=== PATIENT | female | born 1980 | race Caucasian/White ===

== ENCOUNTER 2017-05-26 23:45 | Inpatient (IN) | payer OTHER ==
[~2017-05-26] VITALS: Ht 170.2 cm; Wt 220.0 kg
[~2017-05-26 23:45] MED LIST: BENADRYL25 MG PO; Benadryl 50 mg50 MG PO; CEPH500 PO; CLIN150 PO; CLIN300 PO; Cleocin HCl300 MG PO; DOXY100 PO; DOXY100T53 PO; FAMO40 PO; HYDACE5; HYDACE5 PO; IBUP200; IBUP800; IBUP800 PO; LINE600 PO; MEDR10 PO; NAPR500; NAPR500 PO; Pepcid20 MG PO; RIFA300 PO; RXCLIN PO; RXNAPNA550 PO; RXTRAM50 PO; SULTRIDS PO; TRAM50 PO
[2017-05-27] MEDS ORDERED: GLIP5 PO (00:03)
[2017-05-27 00:22] LABS: BASOPHILS ABSOLUTE AUTO 0.04 K/mm3 (0.00-0.23); BASOPHILS PERCENT AUTO 0 % (0-2); EOSINOPHILS ABSOLUTE AUTO 0.03 K/mm3 (0.00-0.68); EOSINOPHILS PERCENT AUTO 0 % (0-6); Hematocrit 47.3 % (33.0-51.0); Hemoglobin 15.7 g/dL (11.5-16.0); IMMATURE GRAN ABSOLUTE AUTO 0.18 K/mm3 (0.00-0.10); IMMATURE GRAN PERCENT AUTO 2 % (0-1); LYMPHOCYTES ABSOLUTE AUTO 0.86 K/mm3 (0.84-5.20); LYMPHOCYTES PERCENT AUTO 7 % (21-46); MONOCYTES ABSOLUTE AUTO 0.47 K/mm3 (0.16-1.47); MONOCYTES PERCENT AUTO 4 % (4-13); Mean Corpuscular HGB 27.9 pg (26.0-34.0); Mean Corpuscular HGB Conc 33.2 g/dL (31.5-36.5); Mean Corpuscular Volume 84 fL (80-100); Mean Platelet Volume 12.3 fL (9.1-12.4); NEUTROPHILS ABSOLUTE AUTO 10.37 K/mm3 (1.96-9.15); NEUTROPHILS PERCENT AUTO 87 % (41-73); Platelet Count 196 K/mm3 (150-400); RDW Coefficient Variation 13.2 % (11.7-14.2); RDW Standard Deviation 40.4 fL (35.1-46.3); Red Blood Cell Count 5.62 M/mm3 (3.80-5.20); White Blood Cell Count 11.95 K/mm3 (4.00-11.30)
[2017-05-27 00:38] LABS: Alanine Aminotransfer (ALT/SGP 64 U/L (12-78); Albumin, Blood 3.5 g/dL (3.4-5.0); Alk Phos 114 U/L (50-136); Anion Gap 14 mmol/L (6-16); Aspartate Aminotrans (AST/SGOT 71 U/L (12-37); Bilirubin, Total 0.9 mg/dL (0.1-1.0); Blood Urea Nitrogen 15 mg/dL (8-24); Bun/Creatinine Ratio 14.6 (12.0-20.0); CO2, Blood 16 mmol/L (21-32); Calcium, Blood 8.9 mg/dL (8.5-10.1); Chloride, Blood 104 mmol/L (98-108); Creatinine, Blood 1.03 mg/dL (0.40-1.00); Globulin, Blood 3.6 g/dL (2.2-4.0); Glomerular Filtration Rate >60 (60-); Glucose, Blood 420 mg/dL (70-99); Potassium, Blood 3.2 mmol/L (3.5-5.5); Sodium, Blood 134 mmol/L (136-145); Total Protein, Blood 7.1 g/dL (6.4-8.2)
[2017-05-27] MEDS ORDERED: Bactrim 400-801 EACH PO (02:16)
[2017-05-27 03:33] LABS: BASOPHILS ABSOLUTE AUTO 0.04 K/mm3 (0.00-0.23); BASOPHILS PERCENT AUTO 0 % (0-2); Hematocrit 41.5 % (33.0-51.0); Hemoglobin 13.6 g/dL (11.5-16.0); LYMPHOCYTES ABSOLUTE AUTO 0.51 K/mm3 (0.84-5.20); LYMPHOCYTES PERCENT AUTO 4 % (21-46); MONOCYTES ABSOLUTE AUTO 0.44 K/mm3 (0.16-1.47); MONOCYTES PERCENT AUTO 3 % (4-13); Mean Corpuscular HGB 27.5 pg (26.0-34.0); Mean Corpuscular HGB Conc 32.8 g/dL (31.5-36.5); Mean Corpuscular Volume 84 fL (80-100); Mean Platelet Volume 12.3 fL (9.1-12.4); Platelet Count 163 K/mm3 (150-400); RDW Coefficient Variation 13.2 % (11.7-14.2); RDW Standard Deviation 40.5 fL (35.1-46.3); Red Blood Cell Count 4.94 M/mm3 (3.80-5.20); White Blood Cell Count 14.23 K/mm3 (4.00-11.30)
[2017-05-27 03:37] LABS: EOSINOPHILS ABSOLUTE AUTO 0.01 K/mm3 (0.00-0.68); EOSINOPHILS PERCENT AUTO 0 % (0-6); IMMATURE GRAN ABSOLUTE AUTO 0.15 K/mm3 (0.00-0.10); IMMATURE GRAN PERCENT AUTO 1 % (0-1); NEUTROPHILS ABSOLUTE AUTO 13.08 K/mm3 (1.96-9.15); NEUTROPHILS PERCENT AUTO 92 % (41-73)
[2017-05-27 03:52] LABS: Albumin/Globulin Ratio 0.9 (0.8-1.8); Bun/Creatinine Ratio 14.3 (12.0-20.0); Calcium, Blood 8.4 mg/dL (8.5-10.1); Creatinine, Blood 1.19 mg/dL (0.40-1.00); Globulin, Blood 3.2 g/dL (2.2-4.0); Potassium, Blood 3.9 mmol/L (3.5-5.5); Total Protein, Blood 6.2 g/dL (6.4-8.2)
[2017-05-27 07:33] LABS: Glucose, Blood 503 mg/dL (70-99)
[2017-05-27 23:46] LABS: Vancomycin, Trough 18.7 ug/mL (5.0-10.0)
[2017-05-28 05:01] LABS: Hematocrit 39.4 % (33.0-51.0); Mean Corpuscular HGB 27.4 pg (26.0-34.0); Mean Corpuscular Volume 83 fL (80-100); Mean Platelet Volume 12.9 fL (9.1-12.4); Platelet Count 139 K/mm3 (150-400); RDW Coefficient Variation 13.4 % (11.7-14.2); RDW Standard Deviation 40.7 fL (35.1-46.3); Red Blood Cell Count 4.74 M/mm3 (3.80-5.20)
[2017-05-28 05:25] LABS: Alanine Aminotransfer (ALT/SGP 40 U/L (12-78); Albumin, Blood 2.7 g/dL (3.4-5.0); Albumin/Globulin Ratio 0.7 (0.8-1.8); Alk Phos 94 U/L (50-136); Anion Gap 9 mmol/L (6-16); Aspartate Aminotrans (AST/SGOT 21 U/L (12-37); Blood Urea Nitrogen 19 mg/dL (8-24); Bun/Creatinine Ratio 23.6 (12.0-20.0); CO2, Blood 22 mmol/L (21-32); Calcium, Blood 8.5 mg/dL (8.5-10.1); Chloride, Blood 104 mmol/L (98-108); Glomerular Filtration Rate >60 (60-); Glucose, Blood 230 mg/dL (70-99); Potassium, Blood 3.7 mmol/L (3.5-5.5); Sodium, Blood 135 mmol/L (136-145); Total Protein, Blood 6.7 g/dL (6.4-8.2)
[2017-05-28 05:34] LABS: BAND PERCENT MAN 19 % (0-8); BASOPHILS ABSOLUTE MAN 0.13 K/mm3 (0.00-0.23); BASOPHILS PERCENT MAN 1 % (0-2); EOSINOPHILS PERCENT MAN 3 % (0-6); LYMPHOCYTES ABSOLUTE MAN 1.07 K/mm3 (0.84-5.20); LYMPHOCYTES PERCENT MAN 8 % (21-46); METAMYELOCYTE ABSOLUTE MAN 0.13 K/mm3 (0.00-0.00); METAMYELOCYTE PERCENT MAN 1 % (0-0); MONOCYTES ABSOLUTE MAN 0.53 K/mm3 (0.16-1.47); MONOCYTES PERCENT MAN 4 % (4-13); NEUTROPHILS ABSOLUTE MAN 11.12 K/mm3 (1.96-9.15); SEG NEUTROPHILS PERCENT MAN 64 % (41-73); TOTAL CELLS COUNTED 100
[2017-05-29 05:26] LABS: Hematocrit 36.5 % (33.0-51.0); Hemoglobin 11.9 g/dL (11.5-16.0); Mean Corpuscular HGB 27.5 pg (26.0-34.0); Mean Corpuscular HGB Conc 32.6 g/dL (31.5-36.5); Mean Corpuscular Volume 84 fL (80-100); Mean Platelet Volume 12.4 fL (9.1-12.4); Platelet Count 145 K/mm3 (150-400); RDW Coefficient Variation 13.6 % (11.7-14.2); RDW Standard Deviation 42.1 fL (35.1-46.3); Red Blood Cell Count 4.33 M/mm3 (3.80-5.20); White Blood Cell Count 9.86 K/mm3 (4.00-11.30)
[2017-05-29 05:50] LABS: Anion Gap 9 mmol/L (6-16); Blood Urea Nitrogen 15 mg/dL (8-24); Bun/Creatinine Ratio 24.3 (12.0-20.0); CO2, Blood 23 mmol/L (21-32); Calcium, Blood 8.9 mg/dL (8.5-10.1); Chloride, Blood 105 mmol/L (98-108); Creatinine, Blood 0.62 mg/dL (0.40-1.00); Glomerular Filtration Rate >60 (60-); Glucose, Blood 236 mg/dL (70-99); Potassium, Blood 3.7 mmol/L (3.5-5.5); Sodium, Blood 137 mmol/L (136-145)
[2017-05-29 06:05] LABS: BAND PERCENT MAN 14 % (0-8); BASOPHILS ABSOLUTE MAN 0.09 K/mm3 (0.00-0.23); BASOPHILS PERCENT MAN 1 % (0-2); EOSINOPHILS ABSOLUTE MAN 0.09 K/mm3 (0.00-0.68); EOSINOPHILS PERCENT MAN 1 % (0-6); LYMPHOCYTES ABSOLUTE MAN 0.69 K/mm3 (0.84-5.20); LYMPHOCYTES PERCENT MAN 7 % (21-46); MONOCYTES ABSOLUTE MAN 0.39 K/mm3 (0.16-1.47); MONOCYTES PERCENT MAN 4 % (4-13); NEUTROPHILS ABSOLUTE MAN 8.57 K/mm3 (1.96-9.15); SEG NEUTROPHILS PERCENT MAN 73 % (41-73); TOTAL CELLS COUNTED 100
[2017-05-29] MEDS ORDERED: FAMO10 PO (11:23)
[2017-05-29 16:26] LABS: Vancomycin, Trough 23.3 ug/mL (5.0-10.0)
[2017-05-30] MEDS ORDERED: METF850 PO (10:53)
[2017-05-30] MEDS ORDERED: GABA100 PO (10:53)
[2017-05-30] MEDS ORDERED: Prinivil10 MG PO (10:54)
== END 2017-05-30 12:07 | disposition home or self-care (01) | DRG 872 ==
LOC: ER 23:45 → ICUW 05-27 02:09 → PCU 05-27 02:09 → ICUW 05-27 02:12 → MEDS 05-28 11:50 → ENPENDDIS 05-30 08:30 → MEDS 05-30 12:07
PROVIDERS: Emergency Medicine; Family Medicine; Internal Medicine
DX: A41.9 Sepsis, unspecified organism (principal); N17.9 Acute kidney failure, unspecified; E11.65 Type 2 diabetes mellitus with hyperglycemia; E66.01 Morbid (severe) obesity due to excess calories; Z68.45 Body mass index [BMI] 70 or greater, adult; R65.20 Severe sepsis without septic shock; M79.3 Panniculitis, unspecified; I10 Essential (primary) hypertension; E86.0 Dehydration; B95.5 Unspecified streptococcus as the cause of diseases classified elsewhere; Z88.1 Allergy status to other antibiotic agents; Z88.5 Allergy status to narcotic agent; Z88.0 Allergy status to penicillin; Z88.2 Allergy status to sulfonamides; Z88.8 Allergy status to other drugs, medicaments and biological substances; Z79.84 Long term (current) use of oral hypoglycemic drugs; Z79.899 Other long term (current) drug therapy
CPT/HCPCS: 36415; 80048; 80053; 80202; 82010; 82947; 83036; 83605; 85025; 87040; 93005; 93010; 96361; 96365; 96366; 99285; J1815; J2185; J3370; J3480; J7030; J7050

== ENCOUNTER 2018-09-23 21:42 | Inpatient (IN) | payer OTHER ==
[~2018-09-23] VITALS: Ht 170.2 cm; Wt 264.0 kg
[~2018-09-23 21:42] MED LIST changes: +ALLEGRA ALLERG180 MG PO; +Bactrim 400-801 EACH PO; +Bactrim Ds Tab1 EACH PO; +FAMO10 PO; +Florastor250 MG PO; +GABA100 PO; +GLIP10 PO; +LOSARTAN POTASS50 MG PO; +Metformin HCl1000 MG PO; +PIOG30 PO; +Prinivil10 MG PO; +TRIDERM28.4 GM TOP
[2018-09-23] MEDS ORDERED: PIOG45 PO (22:26)
[2018-09-23] MEDS ORDERED: MONDOXYNE NL100 MG PO (22:26)
[2018-09-23] MEDS ORDERED: Neurontin 100100 MG PO (22:26)
[2018-09-23] MEDS ORDERED: Sulfamethoxazo1 EAC4 PO (22:26)
[2018-09-23 22:46] LABS: BASOPHILS ABSOLUTE AUTO 0.03 K/mm3 (0.00-0.23); BASOPHILS PERCENT AUTO 0 % (0-2); EOSINOPHILS ABSOLUTE AUTO 0.07 K/mm3 (0.00-0.68); EOSINOPHILS PERCENT AUTO 1 % (0-6); Hematocrit 40.4 % (33.0-51.0); Hemoglobin 12.3 g/dL (11.5-16.0); IMMATURE GRAN ABSOLUTE AUTO 0.11 K/mm3 (0.00-0.10); IMMATURE GRAN PERCENT AUTO 1 % (0-1); LYMPHOCYTES ABSOLUTE AUTO 0.71 K/mm3 (0.84-5.20); LYMPHOCYTES PERCENT AUTO 6 % (21-46); MONOCYTES ABSOLUTE AUTO 0.36 K/mm3 (0.16-1.47); MONOCYTES PERCENT AUTO 3 % (4-13); Mean Corpuscular HGB 27.5 pg (26.0-34.0); Mean Corpuscular HGB Conc 30.4 g/dL (31.5-36.5); Mean Corpuscular Volume 90 fL (80-100); Mean Platelet Volume 11.9 fL (9.1-12.4); NEUTROPHILS ABSOLUTE AUTO 11.39 K/mm3 (1.96-9.15); NEUTROPHILS PERCENT AUTO 90 % (41-73); Platelet Count 165 K/mm3 (150-400); RDW Coefficient Variation 15.2 % (11.7-14.2); RDW Standard Deviation 50.4 fL (35.1-46.3); Red Blood Cell Count 4.48 M/mm3 (3.80-5.20); White Blood Cell Count 12.67 K/mm3 (4.00-11.30)
[2018-09-23 23:04] LABS: Alanine Aminotransfer (ALT/SGP 30 U/L (12-78); Albumin, Blood 3.6 g/dL (3.4-5.0); Alk Phos 99 U/L (50-136); Anion Gap 6 mmol/L (6-16); Aspartate Aminotrans (AST/SGOT 15 U/L (12-37); Bilirubin, Total 0.7 mg/dL (0.1-1.0); Blood Urea Nitrogen 13 mg/dL (8-24); CO2, Blood 25 mmol/L (21-32); Chloride, Blood 106 mmol/L (98-108); Creatinine, Blood 0.87 mg/dL (0.40-1.00); Globulin, Blood 3.7 g/dL (2.2-4.0); Glomerular Filtration Rate >60 (60-); Glucose, Blood 212 mg/dL (70-99); Potassium, Blood 4.4 mmol/L (3.5-5.5); Sodium, Blood 137 mmol/L (136-145); Total Protein, Blood 7.3 g/dL (6.4-8.2)
[2018-09-23 23:10] LABS: International Normalized Ratio 0.97; Prothrombin Time Results 10.3 Sec (9.7-11.5)
--- NOTE | 2018-09-24 01:36 | NUR ---
09/24/18 0135 PT HAS LARGE BACKPACK AND WHEN ASKED IF SHE HAS MEDS INSIDE SHE RESPONDED,"I DON'T KNOW." MD REFUSED TO GET WEIGHED ON SCALE. WEIGHT IS A STATED WT. PT REFUSED LOVENOX INJECTION EVEN WHEN INFORMED OF REASONS FOR IT. SHE STATES SHE MOVES "AROUND PLENTY". DR ADAMS INFORMED OF HER REFUSALS.
[2018-09-24 02:14] LABS: BASOPHILS ABSOLUTE AUTO 0.03 K/mm3 (0.00-0.23); BASOPHILS PERCENT AUTO 0 % (0-2); EOSINOPHILS ABSOLUTE AUTO 0.04 K/mm3 (0.00-0.68); EOSINOPHILS PERCENT AUTO 0 % (0-6); Hematocrit 41.3 % (33.0-51.0); Hemoglobin 12.6 g/dL (11.5-16.0); IMMATURE GRAN ABSOLUTE AUTO 0.05 K/mm3 (0.00-0.10); IMMATURE GRAN PERCENT AUTO 1 % (0-1); LYMPHOCYTES PERCENT AUTO 7 % (21-46); MONOCYTES ABSOLUTE AUTO 0.27 K/mm3 (0.16-1.47); MONOCYTES PERCENT AUTO 3 % (4-13); Mean Corpuscular HGB 27.7 pg (26.0-34.0); Mean Corpuscular HGB Conc 30.5 g/dL (31.5-36.5); Mean Corpuscular Volume 91 fL (80-100); Mean Platelet Volume 11.7 fL (9.1-12.4); NEUTROPHILS PERCENT AUTO 89 % (41-73); Platelet Count 168 K/mm3 (150-400); RDW Coefficient Variation 15.3 % (11.7-14.2); RDW Standard Deviation 50.3 fL (35.1-46.3); Red Blood Cell Count 4.55 M/mm3 (3.80-5.20); White Blood Cell Count 10.99 K/mm3 (4.00-11.30)
--- NOTE | 2018-09-24 02:27 | NUR ---
09/24/18 4570 PAGED PALLIATIVE CARE ABOUT CONSULT VIA [employer].
--- NOTE | 2018-09-24 04:21 | NUR ---
09/24/18 0415 PT CALLED THAT IV SITE IS SWOLLEN AND SLIGHTLY PAINFUL. IV FLUIDS WERE STOPPED BY PT. RN REMOVED TUBING AND NOTIFIED INSTRUCTIONAL INTERVENTIONIST,TAMERA PT IS VERY POOR VENOUS ACCESS.
--- NOTE | 2018-09-24 07:45 | NUR ---
09/24/18 0610 PT DOZING SITTING UP ON SIDE OF BED. PT REFUSED TO LAY IN BED IT WAS NOT COMFORTABLE. PT NON-COMPLIANT WITH PLAN OF CARE AND HAS REFUSED SOME TESTS AND MEDS. QUESTIONS EVERY MED GIVEN. STATES SHE MAY NOT TAKE ENTIRE IV FLUIDS MD HAS ORDERED SHE FEELS IT IS TOO MUCH. INFORMED HER TO SPEAK WITH MD WHEN HE COMES TO SEE HER DURING ROUNDS.
--- NOTE | 2018-09-24 08:15 | NUR ---
PT PLEASANT COOP A/O. OBESE. DENIES PAIN. H/R REG, NO MURMER NOTED. NO TELE. LUNGS CLEAR, BUT DIM. ON R.A. BT X4 LAST BM YEST. STATES NORMAL. VOIDS PER BATHROOM. INDEPENDANT IN ROOM. BED IN LOW POSITION, CALL LITE IN REACH, CALLS APPROP.
--- NOTE | 2018-09-24 11:41 | NUR ---
PT REFUSING CBG'S, AND IV FLUIDS. SPOKE TO DR ZAPATA. SHE REQUEST WE DOCUMENT. DONE.
--- NOTE | 2018-09-24 18:36 | NUR ---
PT PLEASANT TODAY. BED BROKE. GERIATRIC BED ORDERED TOOK FEW HOURS. PT WANTED TO GO HOME THIS AM. NOT READY. POSS TOMORROW. NO OTHER CONCERNS AT THIS TIME. BED IN LOW POSITION, CALL LITE IN REACH, CALLS APROP
--- NOTE | 2018-09-24 23:51 | NUR ---
PATIENT REFUSING LAB DRAW FOR VANCOMYCIN TROUGH AFTER TWO ATTEMPTS WERE MADE TO DRAW LAB. SPOKE WITH PHYSICIAN ABOUT PATIENT REFUSING LAB DRAW AT THIS POINT AND IS AWARE. SPOKE WITH PATIENT ABOUT THE NEED FOR THE LAB DRAW IN ORDER TO GIVE THE NEXT DOSE OF VANCOMYCIN. EDUCATED PATIENT ON POSSIBLE COMPLICATIONS OF MISSING IV ANTIBIOTIC DOSE. PATIENT VERBALIZED UNDERSTANDING OF COMPLICATIONS INCLUDING SEPSIS AND POSSIBLE . PATIENT IV IN LEFT HAND NO LONGER VIABLE. WILL ATTEMPT TO PLACE NEW IV AND GET BLOOD DRAW FROM IV AT THIS TIME.
--- NOTE | 2018-09-25 01:44 | NUR ---
ATTEMPTED X3 TO GET A PERIPHERAL IV. CAR SALESPERSON ATTEMPTING TO OBTAIN IV USING ULTRASOUND AT THIS TIME. SPOKE TO PHARMACIST IN PERSON WHO STATED TO CANCEL THE VANC TROUGH LAB SINCE IT IS OVER 4 HOURS LATE AND HE WILL SEND A DOSE OF IV VANC IF AN IV IS ESTABLISHED. SPOKE TO MOVEMAN AND CANCELLED VANC TROUGH LAB.
--- NOTE | 2018-09-25 06:34 | NUR ---
SHIFT SUMMARY SEE PREVIOUS NOTE REGARDING PATIENT REFUSING LAB DRAW. PATIENT IV WAS NO LONGER PATENT. ATTEMPTED X3 TO START NEW IV BUT THEN HAD TO GET ARBORICULTURE TEACHER TO TRY ULTRASOUND TO GET PERIPHERAL LINE IN. WHEN I SPOKE TO THE PHARMACIST ABOUT MISSING VANC DOSE HE STATED TO GIVE VELÁSQUEZ ONCE PATIENT IV ACCESS ESTABLISHED. VANC GIVEN THROUGH RIGHT WRIST IV. PATIENT STATED MULTIPLE TIMES THROUGH OUT THE NIGHT THAT SHE WOULD BE LEAVING "AMA" AT 0700. ON MULTIPLE OCCASIONS THROUGHOUT THE NIGHT I WITNESSED THE PATIENT CRYING BUT PATIENT REFUSED TO TELL STAFF WHAT SHE WAS CRYING ABOUT OR IF ANYTHING WAS WRONG. PTT ORDERED AND NURSE ATTEMPTED TO DRAW LAB THROUGH IV BUT THEN RECEIVED CALL FROM LAB STATING THAT LAB DRAW HAD HEMOLYZED. PATIENT REFUSING REPEAT LAB DRAW AT THIS TIME. PATIENT REFUSING CBGS AND CONTINUOUS FLUIDS WELL. NO S/S OF DISTRESS ALTHOUGH PATIENT DOES APPEAR ANXIOUS AND TEARFUL AT TIMES
[2018-09-25 10:58] LABS: Creatinine, Blood 0.77 mg/dL (0.40-1.00)
--- NOTE | 2018-09-25 16:32 | NUR ---
PT IS A/OX3, PLEASANT, THIS AM THE PT STATED THAT SHE WAS GOING TO LEAVE AT 0700, I CALLED THE DOCTOR TO NOTIFY, I WAS ABLE TO PERSUADE THE PT TO STAY UNTIL SHE COULD BE SEEN BY THE DR. FOR POSSIBLE OTHER TX PLANS BEFORE LEAVING THE PT AGREED TO STAY, THE PT ALLOWED BLOOD DRAWS TO BE TAKEN SO FAR, THE PT DENIED ANY PAIN T/O THE DAY, THE PT HAS BEEN UP ON THE SIDE OF THE BED T/O THE SHIFT SO FAR. DR ZAPATA WAS CALLED CONCERNING THE PTS ELEVATED BLOOD PRESSURE AND NEW MED ORDERS WERE GIVEN, HOWEVER THE PT DECLINED TO TAKE THE MEDICATION, PT HAS BEEN EMOTIONAL T/O THE DAY, CALL LIGHT IN REACH WILL CONTINUE TO MONITOR AND ASSESS FOR CHANGES
--- NOTE | 2018-09-26 05:38 | NUR ---
SHIFT SUMMARY PATIENT PLEASANT TONIGHT WITH NO EPISODES OF CRYING OBSERVED BY NURSE. IV PATENT AND VANCOMYCIN GIVEN. NO S/S OF DISTRESS. VSS. AMBULATING IN ROOM TO BATHROOM BY SELF.
--- NOTE | 2018-09-26 16:57 | NUR ---
PT IS A/OX3, UP IND IN HER ROOM, THE PT APPEARS TO BE BREATHING EASILY ON RA, THE PT ABD REDNESS APPEARS TO HAVE IMPROVED COMPARED TO YESTERDAY, THE PT WAS GIVEN IV VANC AND REPORTED RIGHT ARM PAIN AFTERWARD THEN, NO SWELLING OR REDNESS WAS NOTICED, DR. HASTINGS WAS CALLED AND A NEW ORDER WAS ENTERED FOR PAIN AND GIVEN, THE PT WAS UP ON THE SIDE OF THE BED FOR MOST OF THE DAY, CALL LIGHT IN REACH, THE PT HAD A VISITOR TODAY
--- NOTE | 2018-09-27 06:18 | NUR ---
SHIFT SUMMARY PATIENT RECIEVED VANCOMYCIN VIA IV. PATIENT COMPLAINING THAT THERE WAS A "BULGE" WHERE IV WAS PLACED. I FELT WHERE THE PATIENT SHOWED ME BUT DID NOT FIND ANY SIGNS OF INFILTRATION. IV FLUSHED AND PATENT. PATIENT STATED THAT HER ARM WAS SWOLLEN BUT I WAS UNABLE TO SEE ANY SWELLING OF THE ARM. PATIENT STATED SHE WAS GOING TO REMOVE THE IV HERSELF. PATIENT GIVEN IBUPROFEN (SEE EMAR) REQUESTED. NO S/S OF ACUTE DISTRESS. PATIENT CONTINUES TO REFUSE MOST MEDICATIONS AND THERAPIES AT THIS TIME. PATIENT STATED THAT SHE DID NOT WANT THE PICC LINE THAT WAS BEING DISCUSSED FOR TODAY.
--- NOTE | 2018-09-27 07:30 | NUR ---
ASSUMED CARE OF PT- BEDSIDE REPORT COMPLETED WITH NIGHT RN KIAH. PER REPORT PT HAS REMOVED HER IV'S, SHE CURRENTLY HAS ONE THAT SHE TOLD THE NIGHT RN IS PAINFUL AND SHE IS GOING TO REMOVE ON HER OWN. PLAN IS TO PLACE A PICC LINE AND SEND PT HOME ON IV ABX. PT IS REFUSING LOVENOX, AND SOME LAB DRAWS. PER REPORT FROM NIGHT RN CELLULITIS HAS BEEN IMPROVING; PT STATES SHE IS VERY CONCERNED ABOUT THE PICC LINE AND DOES NOT WANT IT, WILL PROVIDE FURTHER EDUCATION SO PT CAN MAKE INFORMED DECISION IN REGUARDS TO HER CONTINUED TREATMENT.
--- NOTE | 2018-09-27 10:55 | NUR ---
SPOKE TO DR HASTINGS- PT STATED SHE IS OK WITH THE PLACEMENT OF THE PICC LINE. DR ENGLISH AND WILL DISCUSS WITH DISCHARGE PLANNING ABOUT THE INFUSION CLINNIC PLANS. WILL PLACE THE VERBAL ORDER FOR PICC LINE PLACEMENT.
--- NOTE | 2018-09-27 11:03 | NUR ---
PT WAS REMOVING HER IV, SHE STATED IT HURTS AND IS VISIBLY RED AT THIS TIME, APPEARS SLIGHTLY SWOLLEN WELL, TO PREVENT PT HARM STAFF REMOVED THE IV THE REMAINDER OF THE WAY AND WRAPPED WITH GAUZE AND COBAN.
[2018-09-27 14:21] LABS: Creatinine, Blood 0.87 mg/dL (0.40-1.00); Vancomycin, Trough 10.2 ug/mL (5.0-10.0)
[2018-09-27] MEDS ORDERED: VANCO 2 GR2 GM/500 M IV (16:31)
--- NOTE | 2018-09-27 17:48 | NUR ---
DISCHARGE NOTE- PT DISCHARGED HOME WITH BID INFUSIONS AT THE [facility] FOR THE NEXT THREE DAYS SCHEDULED TIMES ARE AT 0730 AND 1600 ACCORDING TO BETO JAMES TEAMS IN THE INF[facility]ION CENTER. PT C/O BODY ACHES, MEDICATED PRN WITH IBUPROFEN, PT STATED THAT TOOK THE EDGE OFF. PT WAS GIVEN VERBAL AND WRITTEN DISCHARGE INSTRUCTIONS AND ACKNOWLEDGED UNDERSTANDING OF THEM. PROVIDED CONTACT INFO SHOULD QUESTIONS ARRISE PRIOR TO 7PM. PT DRESSED INDEPENDENTLY AND IS SITTING AT THE EOB WAITING FOR HER MOTHER TO CALL AND TELL HER SHE IS HERE TO PICK HER UP. PT WILL BE ESCORTED OUT VIA W/C BY A STAFF MEMBER.
== END 2018-09-27 18:24 | disposition home or self-care (01) | DRG 872 ==
LOC: ER 21:42 → MEDS 23:45 → ENPENDDIS 09-27 13:35 → MEDS 09-27 18:24
PROVIDERS: Physician Assistant; ADMIT Hospitalist
DX: A41.9 Sepsis, unspecified organism (principal); Z68.44 Body mass index [BMI] 60.0-69.9, adult; L03.311 Cellulitis of abdominal wall; R65.20 Severe sepsis without septic shock; E66.01 Morbid (severe) obesity due to excess calories; E11.9 Type 2 diabetes mellitus without complications; N93.8 Other specified abnormal uterine and vaginal bleeding; I10 Essential (primary) hypertension; L40.9 Psoriasis, unspecified; Z88.1 Allergy status to other antibiotic agents; Z88.5 Allergy status to narcotic agent; Z88.0 Allergy status to penicillin; Z88.2 Allergy status to sulfonamides; Z88.8 Allergy status to other drugs, medicaments and biological substances; Z79.84 Long term (current) use of oral hypoglycemic drugs; Z79.1 Long term (current) use of non-steroidal anti-inflammatories (NSAID); Z79.899 Other long term (current) drug therapy
CPT/HCPCS: 36415; 80053; 80202; 82565; 83605; 85025; 85610; 85730; 87040; 96365; 99284-25; C1751; J3370; J7030; J7050

== ENCOUNTER 2018-09-28 00:41 | Day surgery (SDC) | payer OTHER ==
[~2018-09-28 00:41] MED LIST changes: +MONDOXYNE NL100 MG PO; +Neurontin 100100 MG PO; +PIOG45 PO; +Sulfamethoxazo1 EAC4 PO; +VANCO 2 GR2 GM/500 M IV
== END 2018-09-28 18:05 | disposition home or self-care (01) ==
LOC: ATC 00:41
DX: A41.9 Sepsis, unspecified organism (principal); R65.20 Severe sepsis without septic shock; L03.90 Cellulitis, unspecified; E78.5 Hyperlipidemia, unspecified; I10 Essential (primary) hypertension; J44.9 Chronic obstructive pulmonary disease, unspecified; E66.01 Morbid (severe) obesity due to excess calories; E11.65 Type 2 diabetes mellitus with hyperglycemia; Z79.899 Other long term (current) drug therapy; Z79.84 Long term (current) use of oral hypoglycemic drugs; Z79.1 Long term (current) use of non-steroidal anti-inflammatories (NSAID)
CPT/HCPCS: 96365; 96366; J3370; J7050

== ENCOUNTER 2018-09-29 00:02 | Day surgery (SDC) | payer OTHER | END 2018-09-29 17:53 | disposition home or self-care (01) | LOC: ATC 00:02 | DX: A41.9 Sepsis, unspecified organism (principal); R65.20 Severe sepsis without septic shock; L03.90 Cellulitis, unspecified; I10 Essential (primary) hypertension; E11.9 Type 2 diabetes mellitus without complications; J44.9 Chronic obstructive pulmonary disease, unspecified; E78.5 Hyperlipidemia, unspecified; E66.01 Morbid (severe) obesity due to excess calories; Z79.899 Other long term (current) drug therapy; Z79.84 Long term (current) use of oral hypoglycemic drugs | CPT/HCPCS: 96365; 96366; J3370; J7050 ==

== ENCOUNTER 2018-09-30 00:14 | Day surgery (SDC) | payer OTHER ==
[2018-10-01] MEDS ORDERED: MELO7.5 PO (16:10)
== END 2018-09-30 17:56 | disposition home or self-care (01) ==
LOC: ATC 00:14
DX: L03.311 Cellulitis of abdominal wall (principal); E66.01 Morbid (severe) obesity due to excess calories; I10 Essential (primary) hypertension; J44.9 Chronic obstructive pulmonary disease, unspecified; E78.5 Hyperlipidemia, unspecified; E11.65 Type 2 diabetes mellitus with hyperglycemia; L40.9 Psoriasis, unspecified
CPT/HCPCS: 96365; 96366; J3370; J7050

== ENCOUNTER 2018-10-01 11:42 | Day surgery (SDC) | payer OTHER ==
[2018-10-01] MEDS ORDERED: MELO7.5 PO (16:10)
== END 2018-10-01 23:49 | disposition home or self-care (01) ==
LOC: ATC 11:42
DX: L03.311 Cellulitis of abdominal wall (principal); E11.9 Type 2 diabetes mellitus without complications; E66.01 Morbid (severe) obesity due to excess calories; L40.9 Psoriasis, unspecified; N93.8 Other specified abnormal uterine and vaginal bleeding; Z79.899 Other long term (current) drug therapy; Z79.84 Long term (current) use of oral hypoglycemic drugs; Z88.1 Allergy status to other antibiotic agents; Z88.5 Allergy status to narcotic agent; Z88.0 Allergy status to penicillin; Z88.8 Allergy status to other drugs, medicaments and biological substances; Z68.45 Body mass index [BMI] 70 or greater, adult
CPT/HCPCS: 96365; 96366; J3370; J7050

== ENCOUNTER 2018-10-02 07:27 | Day surgery (SDC) | payer OTHER ==
[~2018-10-02 07:27] MED LIST changes: +MELO7.5 PO
[2018-10-02 09:17] LABS: Creatinine, Blood 0.78 mg/dL (0.40-1.00); Vancomycin, Trough 7.3 ug/mL (5.0-10.0)
== END 2018-10-02 18:40 | disposition home or self-care (01) ==
LOC: ATC 07:27
PROVIDERS: Nurse Practitioner Family
DX: A41.9 Sepsis, unspecified organism (principal); R65.20 Severe sepsis without septic shock; L03.311 Cellulitis of abdominal wall; N93.8 Other specified abnormal uterine and vaginal bleeding; E11.9 Type 2 diabetes mellitus without complications; E66.01 Morbid (severe) obesity due to excess calories; Z68.45 Body mass index [BMI] 70 or greater, adult; Z91.048 Other nonmedicinal substance allergy status; Z88.1 Allergy status to other antibiotic agents; Z91.041 Radiographic dye allergy status; Z88.5 Allergy status to narcotic agent; Z88.0 Allergy status to penicillin; Z88.8 Allergy status to other drugs, medicaments and biological substances; Z79.899 Other long term (current) drug therapy; Z79.84 Long term (current) use of oral hypoglycemic drugs
CPT/HCPCS: 36415; 80202; 82565; 96365; 96366

== ENCOUNTER 2018-10-03 07:27 | Day surgery (SDC) | payer OTHER | END 2018-10-03 18:15 | disposition home or self-care (01) | LOC: ATC 07:27 | DX: L03.311 Cellulitis of abdominal wall (principal); E11.65 Type 2 diabetes mellitus with hyperglycemia; N93.8 Other specified abnormal uterine and vaginal bleeding; E66.01 Morbid (severe) obesity due to excess calories; Z68.45 Body mass index [BMI] 70 or greater, adult; Z91.19 Patient's noncompliance with other medical treatment and regimen | CPT/HCPCS: 96365; 96366; J3370; J7050 ==

== ENCOUNTER 2018-10-04 00:46 | Day surgery (SDC) | payer OTHER | END 2018-10-04 11:10 | disposition home or self-care (01) | LOC: ATC 00:46 | DX: A41.9 Sepsis, unspecified organism (principal); R65.20 Severe sepsis without septic shock; L03.311 Cellulitis of abdominal wall; N93.8 Other specified abnormal uterine and vaginal bleeding; E11.9 Type 2 diabetes mellitus without complications; E66.01 Morbid (severe) obesity due to excess calories; Z68.45 Body mass index [BMI] 70 or greater, adult; Z91.048 Other nonmedicinal substance allergy status; Z88.1 Allergy status to other antibiotic agents; Z91.041 Radiographic dye allergy status; Z88.5 Allergy status to narcotic agent; Z88.0 Allergy status to penicillin; Z88.8 Allergy status to other drugs, medicaments and biological substances; Z79.899 Other long term (current) drug therapy; Z79.84 Long term (current) use of oral hypoglycemic drugs | CPT/HCPCS: 96365; 96366; J3370; J7050 ==

== ENCOUNTER 2018-10-05 07:27 | Day surgery (SDC) | payer OTHER | END 2018-10-05 18:01 | disposition home or self-care (01) | LOC: ATC 07:27 | DX: A41.9 Sepsis, unspecified organism (principal); R65.20 Severe sepsis without septic shock; L03.311 Cellulitis of abdominal wall; E11.9 Type 2 diabetes mellitus without complications; E66.01 Morbid (severe) obesity due to excess calories; N93.8 Other specified abnormal uterine and vaginal bleeding; Z68.45 Body mass index [BMI] 70 or greater, adult; Z91.19 Patient's noncompliance with other medical treatment and regimen; Z88.1 Allergy status to other antibiotic agents; Z91.041 Radiographic dye allergy status; Z88.0 Allergy status to penicillin; Z88.8 Allergy status to other drugs, medicaments and biological substances; Z88.5 Allergy status to narcotic agent; Z79.84 Long term (current) use of oral hypoglycemic drugs; Z79.899 Other long term (current) drug therapy | CPT/HCPCS: 96365; 96366; J3370; J7050 ==

== ENCOUNTER 2018-10-06 00:05 | Day surgery (SDC) | payer OTHER | END 2018-10-06 18:38 | disposition home or self-care (01) | LOC: ATC 00:05 | DX: A41.9 Sepsis, unspecified organism (principal); R65.20 Severe sepsis without septic shock; L03.311 Cellulitis of abdominal wall; E11.9 Type 2 diabetes mellitus without complications; E66.01 Morbid (severe) obesity due to excess calories; Z91.048 Other nonmedicinal substance allergy status; Z88.1 Allergy status to other antibiotic agents; Z91.041 Radiographic dye allergy status; Z88.0 Allergy status to penicillin; Z88.5 Allergy status to narcotic agent; Z88.8 Allergy status to other drugs, medicaments and biological substances; Z79.899 Other long term (current) drug therapy; Z79.84 Long term (current) use of oral hypoglycemic drugs; Z68.45 Body mass index [BMI] 70 or greater, adult | CPT/HCPCS: 96365; 96366; J3370; J7050 ==

== ENCOUNTER 2018-10-07 00:03 | Day surgery (SDC) | payer OTHER | END 2018-10-07 17:21 | disposition home or self-care (01) | LOC: ATC 00:03 | DX: M79.3 Panniculitis, unspecified (principal); E66.01 Morbid (severe) obesity due to excess calories; E11.65 Type 2 diabetes mellitus with hyperglycemia; N93.8 Other specified abnormal uterine and vaginal bleeding; L40.9 Psoriasis, unspecified; Z68.45 Body mass index [BMI] 70 or greater, adult; Z91.19 Patient's noncompliance with other medical treatment and regimen; Z79.899 Other long term (current) drug therapy; Z79.84 Long term (current) use of oral hypoglycemic drugs; Z88.1 Allergy status to other antibiotic agents; Z88.5 Allergy status to narcotic agent; Z88.0 Allergy status to penicillin; Z88.8 Allergy status to other drugs, medicaments and biological substances | CPT/HCPCS: 96365; 96366; J3370; J7050 ==

== ENCOUNTER 2018-10-08 00:47 | Day surgery (SDC) | payer OTHER ==
[2018-10-08 09:45] LABS: Vancomycin, Trough 10.4 ug/mL (5.0-10.0)
[2018-10-08 10:03] LABS: Creatinine, Blood 0.84 mg/dL (0.40-1.00); Glomerular Filtration Rate >60 (60-)
== END 2018-10-08 23:41 | disposition home or self-care (01) ==
LOC: ATC 00:47
PROVIDERS: Nurse Practitioner Family
DX: L03.311 Cellulitis of abdominal wall (principal); A41.9 Sepsis, unspecified organism; R65.20 Severe sepsis without septic shock; E11.9 Type 2 diabetes mellitus without complications; N93.8 Other specified abnormal uterine and vaginal bleeding; E66.01 Morbid (severe) obesity due to excess calories; Z68.45 Body mass index [BMI] 70 or greater, adult; Z91.048 Other nonmedicinal substance allergy status; Z88.1 Allergy status to other antibiotic agents; Z91.041 Radiographic dye allergy status; Z88.5 Allergy status to narcotic agent; Z88.0 Allergy status to penicillin; Z88.8 Allergy status to other drugs, medicaments and biological substances; Z79.899 Other long term (current) drug therapy; Z79.84 Long term (current) use of oral hypoglycemic drugs
CPT/HCPCS: 36415; 80202; 82565; 96365; J0878; J3370; J7050

== ENCOUNTER 2018-10-09 01:45 | Day surgery (SDC) | payer OTHER | END 2018-10-09 23:00 | disposition home or self-care (01) | LOC: ATC 01:45 | DX: L03.311 Cellulitis of abdominal wall (principal); E66.01 Morbid (severe) obesity due to excess calories; E11.9 Type 2 diabetes mellitus without complications; N93.8 Other specified abnormal uterine and vaginal bleeding; Z79.899 Other long term (current) drug therapy; Z88.8 Allergy status to other drugs, medicaments and biological substances; Z88.0 Allergy status to penicillin; Z88.1 Allergy status to other antibiotic agents; Z79.84 Long term (current) use of oral hypoglycemic drugs; Z68.45 Body mass index [BMI] 70 or greater, adult ==

== ENCOUNTER 2018-10-10 00:32 | Day surgery (SDC) | payer OTHER | END 2018-10-10 22:48 | disposition home or self-care (01) | LOC: ATC 00:32 | DX: L03.311 Cellulitis of abdominal wall (principal); E66.01 Morbid (severe) obesity due to excess calories; E11.9 Type 2 diabetes mellitus without complications; L40.9 Psoriasis, unspecified; N93.8 Other specified abnormal uterine and vaginal bleeding; Z88.1 Allergy status to other antibiotic agents; Z88.5 Allergy status to narcotic agent; Z88.8 Allergy status to other drugs, medicaments and biological substances; Z91.048 Other nonmedicinal substance allergy status; Z79.899 Other long term (current) drug therapy; Z79.84 Long term (current) use of oral hypoglycemic drugs; Z68.45 Body mass index [BMI] 70 or greater, adult ==

== ENCOUNTER 2019-07-08 13:34 | Inpatient (IN) | payer OTHER ==
[~2019-07-08] VITALS: Ht 170.2 cm; Wt 260.8 kg
[2019-07-08] MEDS ORDERED: FURO40 PO (14:06)
[2019-07-08] MEDS ORDERED: Sulfamethoxazo1 EAC4 PO (14:07)
[2019-07-08] MEDS ORDERED: ESOM20 PO (14:07)
[2019-07-08] MEDS ORDERED: ALBU90OI INH (14:08)
[2019-07-08] MEDS ORDERED: TRAM50 PO (14:08)
[2019-07-08] MEDS ORDERED: ALBU2.5V5 INH (14:08)
[2019-07-08] MEDS ORDERED: Doxycycline Mo100 M1 PO (14:09)
[2019-07-08 14:28] LABS: BASOPHILS ABSOLUTE AUTO 0.07 K/mm3 (0.00-0.23); BASOPHILS PERCENT AUTO 1 % (0-2); EOSINOPHILS ABSOLUTE AUTO 0.32 K/mm3 (0.00-0.68); EOSINOPHILS PERCENT AUTO 4 % (0-6); Hematocrit 42.8 % (33.0-51.0); Hemoglobin 11.9 g/dL (11.5-16.0); IMMATURE GRAN PERCENT AUTO 1 % (0-1); LYMPHOCYTES ABSOLUTE AUTO 0.75 K/mm3 (0.84-5.20); LYMPHOCYTES PERCENT AUTO 9 % (21-46); MONOCYTES ABSOLUTE AUTO 0.48 K/mm3 (0.16-1.47); MONOCYTES PERCENT AUTO 6 % (4-13); Mean Corpuscular HGB 24.3 pg (26.0-34.0); Mean Corpuscular HGB Conc 27.8 g/dL (31.5-36.5); Mean Corpuscular Volume 87 fL (80-100); NEUTROPHILS ABSOLUTE AUTO 6.71 K/mm3 (1.96-9.15); NEUTROPHILS PERCENT AUTO 80 % (41-73); NRBC ABSOLUTE 0.05 K/mm3 (0.00-0.02); NRBC Auto 0.6 /100 WBC (0.0-0.2); Platelet Count 258 K/mm3 (150-400); RDW Coefficient Variation 19.2 % (11.7-14.2); RDW Standard Deviation 59.9 fL (35.1-46.3); White Blood Cell Count 8.43 K/mm3 (4.00-11.30)
[2019-07-08 14:38] LABS: Alanine Aminotransfer (ALT/SGP 52 U/L (12-78); Albumin, Blood 3.2 g/dL (3.4-5.0); Albumin/Globulin Ratio 0.8 (0.8-1.8); Alk Phos 129 U/L (50-136); Anion Gap 6 mmol/L (6-16); Aspartate Aminotrans (AST/SGOT 85 U/L (12-37); Bilirubin, Total 0.8 mg/dL (0.1-1.0); Blood Urea Nitrogen 17 mg/dL (8-24); Bun/Creatinine Ratio 17.6 (12.0-20.0); CO2, Blood 27 mmol/L (21-32); Calcium, Blood 8.9 mg/dL (8.5-10.1); Chloride, Blood 104 mmol/L (98-108); Creatinine, Blood 0.97 mg/dL (0.40-1.00); Globulin, Blood 4.2 g/dL (2.2-4.0); Glomerular Filtration Rate >60 (60-); Glucose, Blood 168 mg/dL (70-99); Potassium, Blood 5.8 mmol/L (3.5-5.5); Sodium, Blood 137 mmol/L (136-145); Total Protein, Blood 7.4 g/dL (6.4-8.2); Troponin I <0.015 ng/mL (0.000-0.040)
[2019-07-08 14:58] LABS: Base Excess Venous -0.2 mmol/L; Bicarbonate Venous 23.3 mmol/L (24.0-30.0)
[2019-07-08 14:59] LABS: PCO2 Venous 64.2 mmHg (38-42); PO2 Venous 152 mmHg (38-42); pH Blood Venous 7.24 (7.34-7.37)
[2019-07-08 16:04] LABS: C-Reactive Protein, High Sens. 80.3 mg/L (0.000-3.000)
[2019-07-08] MEDS ORDERED: LOSARTAN POTASS25 M2 PO (16:34)
[2019-07-08] MEDS ORDERED: GABA100 PO (16:34)
[2019-07-08] MEDS ORDERED: GLIP10 PO (16:34)
[2019-07-08] MEDS ORDERED: Provera10 MG PO (16:35)
[2019-07-08] MEDS ORDERED: TRIMETHOPRIM PO (17:37)
[2019-07-08] MEDS ORDERED: SULFAMETHOXAZOLE PO (17:37)
[2019-07-08 18:22] LABS: Adenovirus Not Detected (NOT DETECT); Bordetella pertussis Not Detected (NOT DETECT); Chlamydophila pneumoniae Not Detected (NOT DETECT); Coronavirus 229E Not Detected (NOT DETECT); Coronavirus HKU1 Not Detected (NOT DETECT); Coronavirus NL63 Not Detected (NOT DETECT); Coronavirus OC43 Not Detected (NOT DETECT); Human Metapneumovirus Not Detected (NOT DETECT); Human Rhinovirus/Enterovirus Not Detected (NOT DETECT); Influenza A/2009-H1 Not Detected (NOT DETECT); Influenza A/H1 Not Detected (NOT DETECT); Influenza A/H3 Not Detected (NOT DETECT); Influenza B Not Detected (NOT DETECT); Mycoplasma pneumoniae Not Detected (NOT DETECT); Parainfluenza Virus 1 Not Detected (NOT DETECT); Parainfluenza Virus 2 Not Detected (NOT DETECT); Parainfluenza Virus 3 Not Detected (NOT DETECT); Parainfluenza Virus 4 Not Detected (NOT DETECT); Respiratory Syncytial Virus Not Detected (NOT DETECT)
--- NOTE | 2019-07-08 19:21 | NUR ---
PT ARRIVED TO UNIT FROM ER AT 1800. PT ARRIVES ON BARIATRIC BED. 6L O2 VIA NC. COVID R/O, ENHANCED PRECAUTIONS INITIATED. PT A&OX 3. ANSWERS QUESTIONS APPROPRIATELY. C/O PAIN TO LEFT LEG, WOUND TO LEFT GROIN, APPROX 4 CM, TUNNELING. PT MORBIDLY OBESE. PANNUS RED. REDNESS ALSO NOTED TO LOWER LEFT LEG. PT REPORTS SOB AND WEAKNESS X 3 WEEKS. STATES SHE WAS UNABLE TO TRANSFER c ASSISTANCE YESTERDAY. STATES FAMILY CHECKED O2 SATS AND WAS 60'S AND LIPS WERE BLUE. NO O2 USE AT HOME. CT SCAN ORDERED IN ER, UNABLE TO RECEIVE D/T PT WEIGHT. BILATERAL LOWER EXTREMITIES U/S ON ARRIVAL TO ICU. PT CONCERNED ABOUT ANTIBIOTICS, REPORTS MULTIPLE ALLERGIES. PT STATES SHE IS OK c RECEIVING VANCOMYCIN BUT CONCERNED ABOUT LEVAQUIN. REPORT TO ONCOMING NURSE.
[2019-07-08] MEDS ORDERED: CBD GUMMIES (19:56)
--- NOTE | 2019-07-08 20:00 | NUR ---
ASSUMED CARE OF PT AT 1915. REPORT RECEIVED. PT PRESENTS IN BED. ALERT AND ORIENTED. HAS MANY REQUESTS AT TIME OF ASSESSMENT. REPOSITIONED PT WITH USING CEILING LIFT SYSTEM. TEACHING DONE WITH PT ON SAFETY RELATED TO LIFT. WILL REVIEW CHART AND PLAN OF CARE FOR THIS PT.
--- NOTE | 2019-07-09 | NUR ---
HAVE REPOSITIONED PT AT APPROX Q 2 HOURS. AGAIN USING CEILING LIFT. PT WILL CALL WITHIN 30 MINUTES TO GET REPOSITIONED AGAIN. PT CONTINUES ON 4 LITERS PER MINUTE OXGEN PER NASAL CANNULA. SHE DOES AT TIMES REMOVE CANNULA AND IS NOTED TO HAVE SATURATION DROPS TO MID 80 PERCENTS. PT NEEDS TO BE REMINDED RATIONALE FOR HAVING SUPPLEMENTAL OXYGEN. PT MEDICATED WITH IBUPROFEN, AND THEN CALL MADE TO DR BAH FOR ULTRAM SHE TAKES AT HOME.
[2019-07-09 04:55] LABS: PO2 Arterial 78.1 mmHg (80-100)
[2019-07-09 04:56] LABS: PCO2 Arterial 75.2 mmHg (35-45)
[2019-07-09 06:08] LABS: BASOPHILS ABSOLUTE AUTO 0.05 K/mm3 (0.00-0.23); BASOPHILS PERCENT AUTO 1 % (0-2); EOSINOPHILS ABSOLUTE AUTO 0.38 K/mm3 (0.00-0.68); EOSINOPHILS PERCENT AUTO 5 % (0-6); Hematocrit 42.4 % (33.0-51.0); Hemoglobin 11.4 g/dL (11.5-16.0); IMMATURE GRAN ABSOLUTE AUTO 0.09 K/mm3 (0.00-0.10); IMMATURE GRAN PERCENT AUTO 1 % (0-1); LYMPHOCYTES ABSOLUTE AUTO 0.91 K/mm3 (0.84-5.20); LYMPHOCYTES PERCENT AUTO 11 % (21-46); MONOCYTES PERCENT AUTO 7 % (4-13); Mean Corpuscular HGB 24.2 pg (26.0-34.0); Mean Corpuscular HGB Conc 26.9 g/dL (31.5-36.5); Mean Platelet Volume 10.5 fL (9.1-12.4); NEUTROPHILS ABSOLUTE AUTO 6.31 K/mm3 (1.96-9.15); NEUTROPHILS PERCENT AUTO 76 % (41-73); NRBC ABSOLUTE 0.05 K/mm3 (0.00-0.02); NRBC Auto 0.6 /100 WBC (0.0-0.2); Platelet Count 253 K/mm3 (150-400); RDW Coefficient Variation 19.2 % (11.7-14.2); RDW Standard Deviation 61.9 fL (35.1-46.3); Red Blood Cell Count 4.71 M/mm3 (3.80-5.20); White Blood Cell Count 8.34 K/mm3 (4.00-11.30)
[2019-07-09 06:12] LABS: Mean Corpuscular Volume 90 fL (80-100)
[2019-07-09 06:23] LABS: Alanine Aminotransfer (ALT/SGP 51 U/L (12-78); Albumin, Blood 2.9 g/dL (3.4-5.0); Albumin/Globulin Ratio 0.7 (0.8-1.8); Alk Phos 121 U/L (50-136); Anion Gap 2 mmol/L (6-16); Aspartate Aminotrans (AST/SGOT 55 U/L (12-37); Bilirubin, Direct 0.5 mg/dL (0.0-0.3); Bilirubin, Indirect 0.3 mg/dL (0.1-0.7); Bilirubin, Total 0.8 mg/dL (0.1-1.0); Blood Urea Nitrogen 16 mg/dL (8-24); CO2, Blood 31 mmol/L (21-32); Calcium, Blood 8.7 mg/dL (8.5-10.1); Chloride, Blood 106 mmol/L (98-108); Glomerular Filtration Rate >60 (60-); Glucose, Blood 109 mg/dL (70-99); Potassium, Blood 4.8 mmol/L (3.5-5.5); Sodium, Blood 139 mmol/L (136-145); Total Protein, Blood 6.9 g/dL (6.4-8.2); Vancomycin, Random 6.2 ug/mL
--- NOTE | 2019-07-09 06:30 | NUR ---
WAS ABLE TO CHANGE OUT LIFT SHEET FROM UNDER PATIENT WELL NEW ROMAN. DID PLACE DRY-FLOW PADS UNDER PATIENT. SHE STATES THAT SHE TYPICALLY HAS WEEPING FROM HER PANUS. NOTED UNDER PANUS WAS RED AND MOIST. CLEANED AREA, AND THEN WENT TO PLACE PILLOW CASES TO ALLOW FOR AIRFLOW, AND TO WHICK MOISTER. PT REFUSES AND WANTS TO HAVE ANTIPERSPERANT USED INSTEAD. AFTER TEACHING ON USING PILLOW CASES, PT REFUSES AND INSISTS THAT ANTIPERSPIRANT BED USED. PT ALSO REFUSES MYCOSTATIN TO FOLDS EVEN AFTER TEACHING DONE. WILL CONTINUE TO MONITOR PT, AND WILL REPORT OFF TO ONCOMING RN.
--- NOTE | 2019-07-09 07:30 | NUR ---
Pt called at 0730 stated she wanted to be repositioned. Jerri(PCT) came to assist me with the turn. She was on her right side at the time and said she wanted to be turned to her left side. Stated that she could not stand to be on her right side any longer. So Jerri and I hooked her up to the lift and turned her to the left side as per her request. As soon as we set her down she stated that she could not stay on that side, as it was too uncomfortable and she felt all her lymphodema was pulling her back and making it too uncomfortable for her. I asked the pt what she wanted us to do to make her more comfortable she stated too just pull the pillows out and leave her flat on her back. So we did. After that she said no I cannot stay like this once again she stated it was too uncomfortable. I asked her again what can we do to make you comfortable? She stated just put me back on my right side it is the only way that I can lay. So after being in the room for well over an hour Jerri and I put her back to the position she started in and made sure she had her call light and personal belongings in reach. We made multiple attempts to try and reposition her and despite our efforts she was refusing to go any other position than on her right side. RN notified.
--- NOTE | 2019-07-09 10:15 | NUR ---
UPDATE PT HAS BEEN REFUSING SKIN CARE AND REPOSITIONING - YET WANTS TO BE REPOSITIONED FREQUENTLY. SHE IS NOT RECEPTIVE TO EDUCATION. SHE STATES SHE NEEDS TO BE REPOSITIONED BUT WHEN WE GO TO REPOSITION SHE TELLS US TO STOP WHAT WE ARE DOING. REPOSITIONING REQUIRES MULTIOPLE NURESES AND TWO CELING LIFTS TO GET THE TASK DONE. WE WERE ABLE TO DO SOME SKIN CARE UNDER ONE OF HER [id number] TISSUE FOLDS - WHERE THERE WAS A SIGNIFICANT HOLE/OPEN WOUND. YEAST ARE GROWING UNDER THE MAJORITY OF THESE FOLDS. WE WERE ABLE TO CLEAN, DRY AND APPLY NYSTATIN POWDER BUT SHE IS VERY RESISTANT AND WOULDN'T LET US CLEAN UP ANY OTHER AREAS - DESPITE THEM DESPERATELY NEEDING IT. AGAIN, SHE IS NOT RECEPTIVE TO EDUCATION REGARDING THESE TOPICS. BED IS LOW AND LOCKED. CALL LIGHT WITHIN REACH - SHE PRESSES THE CALL LIGHT VERY FREQUENTLY 'DEMANDING' TO BE REPOSITIONED, WE KEEP INFORMING HER THAT WE WILL REPOSITION FREQUENTLY WE CAN, SHE MAKES STATEMENTS THAT SHE HASN'T BEEN REPOSITIONED IN HOURS, OR SHE HASNT USED THE CALL LIGHT IN OVER AN HOUR WHICH IS SIMPLY NOT FACTUAL. SHE IS ALSO CONCERNED THAT SHE IS NOT ON HER HOME DIABETIC MEDICATIONS SUCH : METFORMIN AND GLIPIZIDE. I BROUGHT THIS UP TO THE DOCTOR AND WE ARE HOLDING IT FOR NOW D/T HER INCREASED RISK OF NEPHROTOXICITY FROM LASIX AND OTHER MEDS - WE ARE TRYING TO PREVENT ACUTE RENAL FAILURE. HER BLOOD SUGARS ARE WELL CONTROLLED AND SHE HAS A SLIDING SCALE OF INSULIN TO COVER ANY HIGH SUGARS IF NEEDED. HER MOTHER CALLED AND WAS CONCERNED ABOUT THIS BUT WE EDUCATED HER, SHE WAS RECEPTIVE, BUT THE PT WAS NOT RECEPTIVE TO THIS INFORMATION.
[2019-07-09 12:40] LABS: Base Excess Venous 3.4 mmol/L; Bicarbonate Venous 25.1 mmol/L (24.0-30.0); PCO2 Venous 73.7 mmHg (38-42); PO2 Venous 35.5 mmHg (38-42)
[2019-07-09 12:41] LABS: pH Blood Venous 7.23 (7.34-7.37)
--- NOTE | 2019-07-09 13:30 | NUR ---
UPDATE 2 WE NEEDED TO TAKE PICUTRES OF WOUNDS AND AREAS OF CONCERN, WELL HER BACK. PT IS WISHING TO BE REPOSITIONED AND IT WAS DUE SO BEFORE WE REPOSITIONED WE GOT HER ON HER SIDE, AND SHE WAS VERY RESISTANT TO OUR CARE. BUT SHE STILL REQUESTED TO BE REPOSITIONED. TIME AND TIME AGAIN, SHE IS UNABLE TO TELL US WHAT SHE NEEDS, AND FIGHTS US WHEN WE TRY TO HELP. SHE CONTINUES TO REFUSE CARE. SHE IS ALSO UNHAPPY WITH US D/T US NOT REPOSITIONING HER WHENEVER SHE WANTS. SHE DOES NOT UNDERSTAND THAT BECAUSE IT TAKES 3+ NURSES AND 2 CELING LIFTS, WE CAN'T REPOSITION HER MUCH SHE WANTS. BED LOW AND LOCKED. CALL LIGHT WITHIN REACH.
--- NOTE | 2019-07-09 19:13 | NUR ---
SHIFT SUMMARY PT IS IN BED ALERT AND ORIENTED X 4. SHE HAS BEEN ANXIOUS TODAY HAS BEEN CRYING OUT IN PAIN FOR MAJORITY OF DAY. ULTRAM HELPED A LITTLE BIT SHE SAID, AND AROUND LATE MORNING SHE STATED SHE HAD RELIEF, BUT THAT DIDN'T LAST LONG. SEE PREVIOUS NOTES REGARDING HER BEHAVIOR RELATED WITH PAIN, REPOSITIONING, AND ALSO SKIN CARE. SHE HAD GREAT URINE OUTPUT. NO BM. SHE HAS MAJOR SKIN ISSUES, PICTURES WERE TAKEN TODAY. I UPDATED HER MOM ON THE PHONE (SEE PREVIOUS NOTE). CATHY SAW PT TODAY. SHE IS NOW MEDICAL STATUS WITH NO TELLY. SHE IS IN BETTER SPIRITS AT THE END OF THE SHIFT, BUT STILL REFUSING CARE, AND ATTEMPTING TO DICTATE HER CARE. BED LOW AND LOCKED. CALL LIGHT WTIHIN JULIAN.
--- NOTE | 2019-07-09 20:00 | NUR ---
ASSUMED CARE OF PT AT 1915. REPORT RECEIVED. PT PRESENTS IN BED. ALERT AND CRYING. STATES THAT HER LEFT LEG IS HURTING. MEDICATED PT WITH ULTRAM PER HER PRN EMAR. PT TURNED USING CEILING LIFT AND PLACEMENT OF POSITIONING WEDGES AND PILLOWS DONE. PT STATES SHE IS NOT COMFORTABLE IN ANY POSITION THAT SHE IS PLACED. ADJUSTMENTS MADE. WILL REVIEW CHART AND PLAN OF CARE FOR THIS PT.
--- NOTE | 2019-07-09 20:38 | NUR ---
CALL FROM PT'S BROTHER WHO REQUESTED TO TALK TO HOUSECALLS NURSE. PT'S BROTHER SALUD STATED THAT PT HAS BEEN CALLING HER MOTHER CRYING STATING THAT FACTORY LABORER HAVE NOT BEEN HELPING HER AND ARE BEING RUDE TO HER. PT AND FAMILY MEMBERS WERE REINFORMED THAT THE PT AND MANY OTHER PT'S AT THIS TIME ARE CONSIDERED RULE-OUT COVID AND WHAT THAT ENTAILS FAR GOWNING UP EACH TIME STAFF ENTERS THE ROOM. THIS RN REITERATED TO SALUD EVENTS OF CARE OF THIS PT DURING DAY SHIFT INCLUDING PT'S RN HAD BEEN IN ROOM MANY TIMES FREQUENT OF THE TWO-HOUR ROUNDING. ALSO REITERATED WAS AT ONE POINT, PER DAY CHARGE, EIGHT STAFF MEMBERS AT ONE TIME WENT INTO ROOM TO REPOSITION PT AND PROVIDE TOTAL CARE. SALUD GIVEN TIME TO VOICE CONCERNS AND TO EXPRESS FRUSTRATIONS. THIS RN REASSURED SALUD THAT PT IS NOT BEING IGNORED NOR NEGLECTED AND PT IS ALWAYS GIVEN HER CALL LIGHT. BY THE END OF CONVERSATION, SALUD VERBALIZED UNDERSTANDING AND STATED, "I KNOW MY SISTER CAN BE HARD TO DEAL WITH SOMETIMES". SALUD REASSURED THAT STAFF ARE TRYING NOT TO BE RUDE BUT ARE SETTING BOUNDARIES AND LIMITS WHICH MAKES PT ANGRY. SALUD REASSURED THAT PT IS CONTINUALLY REMINDED AND REQUESTED TO GIVE HER NURSE TIME ONCE OUT OF ROOM TO ROUND OTHER PATIENTS AND THAT IF HER NEEDS ARE EMERGENT THAT ANOTHER STAFF MEMBER WILL TRY TO COME INTO HER ROOM. SALUD ENDED CONVERSATION BY STATING, "THANK YOU".
--- NOTE | 2019-07-10 | NUR ---
DID CALL CLARISSA TRACK BROOM OPERATOR - HOSPITALIST FOR ORDERS FOR INCREASING PAIN MEDICATION COULD BE DONE. ORDERS RECEIVED. DID MEDICATE PT WITH ONE TIME XANAX AND 25 MCG'S FENTANYL.PT STATES THAT THIS WAS AFFECTIVE. HAS RESPONDED WELL TO DIURETIC THERAPY. WILL CONTINUE TO MONITOR.
[2019-07-10 04:23] LABS: Anion Gap 3 mmol/L (6-16); Blood Urea Nitrogen 15 mg/dL (8-24); Bun/Creatinine Ratio 15.6 (12.0-20.0); CO2, Blood 31 mmol/L (21-32); Calcium, Blood 8.7 mg/dL (8.5-10.1); Chloride, Blood 103 mmol/L (98-108); Creatinine, Blood 0.96 mg/dL (0.40-1.00); Glomerular Filtration Rate >60 (60-); Glucose, Blood 127 mg/dL (70-99); Phosphorus, Blood 3.9 mg/dL (2.5-4.9); Potassium, Blood 4.6 mmol/L (3.5-5.5); Sodium, Blood 137 mmol/L (136-145)
--- NOTE | 2019-07-10 06:30 | NUR ---
HAVE NOTED THIS NIGHT THAT WHEN PT USES HER CALL LIGHT SYSTEM AND SHE DOES NOT IMMEDIATELY HAVE AN RN IN ROOM, SHE WILL PULL OFF HER MONITOR LEADS, HER OXYGEN AND HER OXIMETER TO GET STAFF TO COME IMMEDIATELY TO ROOM. WHEN SHE DOES THIS, HER OXYGEN SATURATIONS HAVE DROPPED TO MID 70 %. DISCUSSED WITH PT THAT THIS WAS NOT SAFE FOR HER TO DO, AND THAT WITH DRAMATIC CHANGES IN HER SATURATIONS THAT HER REMOVING HER OXYGEN COULD LEAD TO RESPIRATORY FAILURE AND POSSIBLE . PT HAS SINCE STOPPED PULLING OFF HER OXYGEN. PT MEDICATED AT 2-3 HOUR INTERVALS WITH 25 MCG FENTANYL. WILL CONTINUE TO MONITOR PT,AND WILL REPORT OFF TO ONCOMING RN.
--- NOTE | 2019-07-10 10:03 | NUR ---
O815 PT HAS BEEN SLEEPING, VSS. SATS 95 ON 5L W/O C/O SOB OR RESP. DISTRESS. PT IS C/O PAIN IN L LEG AND THEN LATER IN R ARM W/O CLEAR CAUSE OF SYMPTOMS EXPRESSED. PO MEDS GIVEN AND WILL FOLLOW. PT C/O "STAFF JUST DRUGING HER SO THEY DO NOT HAVE TO DEAL WITH HER". PT NEEDS ARE BEING MET HOWEVER NEEDS ARE SOME TIMES UNCLEAR AND RANDOM IN NATURE BUT WILL CONT TO ASSESS. PT REPOSTIONED AND PT EXPRESSED COMFORT AND BED PLACE IN REVERSE [place] TO ASSIST IN EATING BREAKFAST. PT IS ABLE TO CALL AND TALK WITH FAMILY ON PHONE.
--- NOTE | 2019-07-10 11:57 | NUR ---
Echocardiogram cancelled. Patient refused exam.
--- NOTE | 2019-07-10 14:14 | NUR ---
1200 3 STAFF IN TO DO COMPLETE BATH WITH CLEANING AND MEDICATION OF SKIN FOLDS. PT IS REPOSITIONED BUT SOME POSITIONS ONLY LAST ONLY JUST A FEW MINUTES, WILL FOLLOW.
--- NOTE | 2019-07-10 18:14 | NUR ---
PT IS AWAKE AND FEEDING SELF. PAIN IS CONTROLLED BUT PT CONT TO HAVE VARRIABLE C/O OF MOVING PAIN... VS WERE STABLE THIS DAY. PT CONT WITH 4L NC. HAS BEEN PERIODICALLY TALKING ON THE PHONE AND INTERSPERSED WITH SLEEPING. I/O NOTED.
--- NOTE | 2019-07-10 21:05 | NUR ---
AT HOME EVENTS: PT IN BETTER SPIRITS THIS EVENING. THIS RN SPENT SEVERAL MINUTES LISTENING TO PT AND ABLE TO INQUIRE REGARDING EVENTS AT HOME PRIOR TO EMS TO HOSPITAL. BOTH DISCUSSIONS WITH PT AND PT'S MOTHER SUNITHA THIS EVENING CONCUR WITH EVENTS OCCURING WITH PT AT HOME THE WEEK PRIOR TO EMS BEING CALLED. PT APPARENTLY WAS WALKING UP TO THE DAY AND HALF PRIOR TO COMING IN TO HOSPITAL. PT AND PT'S MOM STATED THAT DURING THE WEEK PRIOR TO HOSPITAL, PT WAS, ONE DAY, WALKING TO THE BATHROOM AND TWISTED HER LEFT ANKLE. ON ANOTHER DAY THEREAFTER HEARD A "POP" FROM HER LEFT LEG AND AFTER HAD DIFFICULTY WALKING. THE DAY AND A HALF PRIOR TO EMS BEING CALLED, THE PT WAS CHAIR BOUND AND NOT ABLE TO STAND UP EVEN WITH ASSISTANCE FROM MALE FAMILY MEMBERS.
--- NOTE | 2019-07-11 01:06 | NUR ---
UPDATE: PT REPOSITIONED FREQUENTLY FOR COMFORT. PT, WHEN COMFORTABLE, FALLS ASLEEP QUICKLY. AT 0000, WHEN VITALS TAKEN, PT HAD TAKEN N/C OFF. SATS 71%. N/C PLACED ON 6L. PT REPOSTIONED UNTIL COMFORTABLE. VSS. PT PLACED ON CONTINUOUS PULSE OX FOR MONITORING. PT CURRENTLY SLEEPING.
--- NOTE | 2019-07-11 01:13 | NUR ---
SKIN CARE: AFTER XRAY DONE. 3 AFTER SCHOOL DRIVER IN ROOM TO PROVIDE SKIN CARE. PT CRIED WHEN PANNUS AND DENISHA CREASES WASHED (AND WERE WASHED USING LIGHT PRESSURE). PT TEACHING PROVIDED FOR CONTINUING PROPER SKIN CARE FOR SKIN HEALING. PT DIDN'T SEEM TO BE RECEPTIVE OF THIS. NYSTATIN POWDER APPLIED WITH SHEET AND PILLOW CASE CLOTH PLACED FOR MOISTURE CONTROL. PT REPOSTIONED UNTIL COMFORTABLE. CALL LIGHT PLACED WITHIN REACH AFTER EACH REPOSITION.
--- NOTE | 2019-07-11 02:32 | NUR ---
SATS 63%: PT PULLS OFF N/C DURING SLEEP. SATS DROP DOWN TO 63%. RN INTO ROOM AND PLACED N/C BACK ON PT SATS NOW 95%.
[2019-07-11 03:38] LABS: Anion Gap 4 mmol/L (6-16); Blood Urea Nitrogen 18 mg/dL (8-24); CO2, Blood 32 mmol/L (21-32); Calcium, Blood 8.7 mg/dL (8.5-10.1); Chloride, Blood 102 mmol/L (98-108); Creatinine, Blood 0.95 mg/dL (0.40-1.00); Glomerular Filtration Rate >60 (60-); Glucose, Blood 151 mg/dL (70-99); Potassium, Blood 4.7 mmol/L (3.5-5.5); Sodium, Blood 138 mmol/L (136-145)
--- NOTE | 2019-07-11 05:53 | NUR ---
UPDATE: PT NOW SLEEPING APPRX 1 HR BETWEEN USING CALL LIGHT FOR REPOSIONING. PT SATS 96-98% WITH N/C 5L WHILE SLEEPING. LETTING PT SLEEP UNTIL NEEDING REPOSITIONED. WILL CONTINUE TO [facility]. WILL PASS ON TO DAY RN. PT NEEDING REPORT FROM XRAY, HAVE PT/OT ORDERED, PT NEEDING EITHER HOME O2 OR CPAP FOR HOME. PALLIATIVE CARE ORDERED.
--- NOTE | 2019-07-11 09:27 | NUR ---
ASSUMED CARE PT RESTING WITH EYES CLOSED, EASILY AWOKEN. MECHANICAL ENGINEERING MANAGER CAME BY FOR TEST, BUT PT WAS SLEEPING. ASKED PT IF SHE IS WILLING TO HAVE ECHO DONE TODAY AND SHE SAID NOT RIGHT NOW. WILL ASK AGAIN LATER. PT WEARING 6L/NC WITH SPO2 98%. TITRATED OXYGEN DOWN TO 4L. DR. HASTINGS CAME BY AND GAVE ORDERS FOR PT/OT. PT RESPOSITIONED IN BED AND MEDICATED FOR PAIN.
--- NOTE | 2019-07-11 12:34 | NUR ---
Echocardiogram completed.
--- NOTE | 2019-07-11 12:39 | NUR ---
PT WAS AGREEABLE TO ECHO AFTER EXPLANATION OF PROCEDURE SO COOLER WORKER NOTIFIED AND ECHO COMPLETED. PT MEDICATED TWICE FOR PAIN THIS MORNING. STILL HAVING DIFFICULTY GETTING COMFORTABLE. WORKED WITH PT/OT BUT WAS UNABLE TO GET TO SIDE OF BED. WORKING ON LOCATING BARIATRIC RECLINER FOR PT. PT DESATRUATED TO MID 80S WHEN OXYGEN FELL OFF EARLIER. RECOVERED QUICKLY. STILL ON 4L/NC. CONTINUING TO MONITOR.
--- NOTE | 2019-07-11 17:22 | NUR ---
SHIFT SUMMARY PT HAS BEEN RESTING IN BED THROUGHOUT THE DAY. OXYGEN WEANED DOWN TO 2L/NC. ATTEMPTED TO WEAN FURTHER BUT PT DROPS TO 85% WHEN ON RA. HR TACHY IN THE LOW 100S, BP STABLE, SEE VITALS. LUNGS CLEAR BUT DIM. RARE COUGH, NONPRODUCTIVE. PT CONTINUES TO BE GENERALLY UNCOMFORTABLE AND UNABLE TO TELL STAFF HOW TO POSITION HER TO BE COMFORTABLE. MEDICATED WITH TRAMADOL AND IBUPROFEN THROUGHOUT THE DAY TO TRY AND HELP. MULTIPLE ATTEMPTS MADE THROUGHOUT THE DAY WITH 30-60 MINUTES BEING SPENT IN THE ROOM AT A TIME TO POSITION PT, BUT PT STILL CRIES OUT AND MOANS. SPOKE WITH PT'S MOM AND GAVE HER UPDATE.
--- NOTE | 2019-07-11 20:00 | NUR ---
ASSUMPTION OF CARE: PT A&O. COMPLAINS MAINLY OF OVERALL PAIN. IN ST WITH HR IN THE 100S, SBP IN THE 110S. ON 2L NC. SPO2 >90%. LUNG SOUNDS DIM. BYRNE IN PLACE DRAINING CLEAR YELLOW URINE. PG TO LINNETTE-PATENT AND SL. MULTIPLE SITES OF REDDENED SKIN AND EXCORIATION UNDER BREASTS, PANNUS, SKIN FOLDS. PICS IN CHART. WEEPING AREAS ON ABD AND L HIP. WILL CONTINUE TO MONITOR
--- NOTE | 2019-07-12 01:55 | NUR ---
PT BEING REPOSITIONED FREQUENTLY. HOWEVER PT COMPLAINS OF PAIN AND NOT BEING ABLE TO GET COMFORTABLE WITH REPOSITIONS. EXPLAINED REASONING BEHIND REPOSITIONING. PT UNDERSTOOD.
[2019-07-12 03:33] LABS: Anion Gap 3 mmol/L (6-16); Blood Urea Nitrogen 18 mg/dL (8-24); Bun/Creatinine Ratio 21.2 (12.0-20.0); CO2, Blood 33 mmol/L (21-32); Chloride, Blood 102 mmol/L (98-108); Creatinine, Blood 0.85 mg/dL (0.40-1.00); Glomerular Filtration Rate >60 (60-); Glucose, Blood 157 mg/dL (70-99); Potassium, Blood 4.4 mmol/L (3.5-5.5); Sodium, Blood 138 mmol/L (136-145)
--- NOTE | 2019-07-12 05:20 | NUR ---
LAB CALLED. PT IS COVID (-)
--- NOTE | 2019-07-12 05:21 | NUR ---
SHIFT SUMMARY: NO ACUTE CHANGES T/O SHIFT. COVID RESULTS BACK THIS AM. SHE IS NEGATIVE. PT SPO2 >90% ON 2LNC. HOWEVER SHE DOES DESAT WITHOUT O2. BYRNE REMAINS IN PLACE. TURNS Q 2 HRS WITH LIFT. PT HAD SMALL BM THIS AM. WILL PASS REPORT TO ONCOMING SHIFT
--- NOTE | 2019-07-12 06:08 | NUR ---
ATTEMPTED TO TURN PT LATERAL POSSIBLE TO KEEP OFF COCCYX. PT DOES NOT TOLERATE AND PREFERS TO BE MORE SUPINE. EXPLAINED THAT SHE REALLY NEEDS TO TRY TO STAY TURNED SIDE TO SIDE FOR A PERIOD OF TIME. PT STATED "SHE CANT DO IT". SHE UNDERSTANDS THAT STAYING ON HER BACK OR IN ONE POSITION CAN LEAD TO SKIN BREAK DOWN AND POSSIBLY ULCERATION. SHE UNDERSTANDS RISKS AND CONTINUES TO REFUSE
--- NOTE | 2019-07-12 11:00 | NUR ---
CARE ASSUMED REPORT RECEIVED, CARE ASSUMED AT 0700 FROM BETO ROBERTSON. PT ASLEEP UPON ASSUMING CARE. DURING ASSESSMENT, PT INITIALLY CONFUSED ON YEAR AND MONTH BUT OTHERWISE ORIENTED. PT QUICKLY CLEARS. DR. HASTINGS TO BEDSIDE FOR ASSESSMENT AND DISCUSSED THESE FINDINGS WITH PATIENT. VITALS STABLE WITH EXCEPTION OF PT REQUIRING 2-4 LPM NASAL CANNULA. DESATURES QUICKLY WHEN TURNING. PT ABLE TO TAKE MORNING MEDICATIONS WITH SETUP ASSIST. ATE SMALL AMOUNT OF BREAKFAST, BUT THEN SAID HER STOMACH HURT TOO MUCH TO EAT ANY MORE. PT TEARFUL, RESTLESS, REPORTING THAT SHE "HURTS EVERYWHERE." PT HAS BEEN REPOSITIONED APPROX EVERY 30 MINUTES, MEDICATED WITH ULTRAM, EDUCATED AND CONTINUES TO BE IRRITABLE, RESTLESS, AND UNABLE TO PROVIDE STAFF WITH DIRECTION ON HOW TO MAKE HER BE LESS PAINFUL. PT HAS EXTREMELY LIMITED ROM IN LOWER EXTREMITIES. ABLE TO MOVE ARMS, BUT UNABLE TO PULL BODY WEIGHT FROM SIDE TO SIDE SO IS REQUIRING MAX ASSIST FOR ADL'S. SPOKE WITH NOE IN PHYSICAL THERAPY, STATES HE PLANS TO SEE PATIENT IN CONJUNCTION WITH OCCUPATIONAL THERAPY TO GET PT UP AND MOVING. PT UPDATED AND AGREEABLE. PT HAS BEEN ON FACETIME ON AND OFF WITH HER MOTHER, MOST OF THE TIME YELLING OUT AND NOT PARTICIPATING IN ACTIVE CONVERSATION. PT'S MOTHER HAS ALSO CALLED ICU REQUESTING ADL ASSISTANCE FOR PATIENT WHICH HAS BEEN PROVIDED. PT HAS BYRNE WHICH HAS HAD LARGE AMOUNT OF OUTPUT. 2 SMALL LOOSE BOWEL MOVEMENTS. PT'S SKIN CONDITION EXTREMELY POOR, PROVIDING SKIN CARE ABLE WITH VARIOUS POSITIONING. PT REPORTS, "I DON'T LIKE THAT POWDER," WHEN PUTTING ON NYSTATIN POWDER. PROVIDED WITH EDUCATION ON THE REASON FOR TYPE OF POWDER AND PT AGREEABLE.
--- NOTE | 2019-07-12 11:41 | NUR ---
PHYSICAL THERAPY AND OCCUPATIONAL THERAPY TO BEDSIDE TO WORK WITH PATIENT
--- NOTE | 2019-07-12 14:17 | NUR ---
ADL'S PT ONLY TOLERATING ONE POSITION FOR MAXIMUM 1 HOUR AND THEN STARTS CALLING OUT IN PAIN SAYING, "SOMEONE PLEASE HELP ME," AND TEARFUL. PT'S PANUS CRUSHING LEGS WHEN HEAD ELEVATED, PUTTING TOO MUCH PRESSURE ON UPPER TORSO AND BREATHING WHEN HEAD IS AT 30 DEGREES. PT REPORTS BEING ON SIDE PAINFUL ON HIPS. NO CHAIR IN HOUSE IS LARGE ENOUGH TO ACCOMODATE PATIENT. SPOKE WITH ABDON, NURSING LINER INSERTER, TO OBTAIN A POSSIBLE RENTAL CHAIR THAT IS BIG ENOUGH FOR PATIENT, THIS WOULD BE BENEFICIAL TO REGAIN HER STRENGTH AND MOBILITY. ABDON TO RESEARCH ON POSSIBILITY OF OBTAINING LARGER CHAIR.
--- NOTE | 2019-07-12 14:54 | NUR ---
PROVIDER COMMUNICATION PT CONTINUES TO CRY OUT, SAYING, "SOMEONE PLEASE HELP ME." PT TEARFUL ASSISTED TO REPOSITION AND WITHIN 20 MINUTES PT CONTINUES TO CRY OUT, MOAN AND IS UNREDIRECTABLE. DISCUSSED WITH DR. HASTINGS ABOUT POSSIBLE UNDERLYING ANXIETY. ONE TIME ORDER FOR ATIVAN AND DR. HASTINGS PLANS TO SEE PATIENT AGAIN THIS AFTERNOON AND DISCUSS WITH HER POSSIBLE SSRI FOR HAM FACER MAINTENANCE.
--- NOTE | 2019-07-12 16:00 | NUR ---
PLAN OF CARE CONFERENCE PT EDUCATED ON ATIVAN MEDICATION. STATES, "I WANT TO ASK MY MOM." ASSISTED PT TO CALL MOM. PTS MOTHER WHO IS ALSO A NURSE SAYS SHE THINKS ANTI-ANXIETY MEDICATION WOULD BE BENEFICIAL. PT CONTINUES TO SAY, "I JUST DON'T KNOW I JUST DON'T KNOW." WHILE PT'S MOTHER STILL ON PHONE, DR. HASTINGS TO BEDSIDE TO DISCUSS PLAN OF CARE. PLAN TO INCREASE GABAPENTIN DOSE ORDER. OTHERWISE, NO NEW ORDERS. PT AGREEABLE TO TAKE ATIVAN, ATIVAN GIVEN.
--- NOTE | 2019-07-12 18:49 | NUR ---
SUMMARY SINCE PREVIOUS NOTE, PT HAS SLEPT INTERMITTENTLY. PT WILL START CRYING OUT, SAYING, "OH PLEASE HELP ME, PLEASE, PLEASE!" WHEN DISCUSSING CONCERNS WITH PATIENT, PT UNABLE TO ARTICULATE SPECIFIC NEEDS. THIS EVENING, SMALL CHANGES MADE SUCH REMOVING BLANKETS OR PUTTING HEAD OR LEGS DOWN SLIGHTLY HAVE BEEN MADE AND PT FELL BACK ASLEEP. PT HAS CONTINUED TO BE SOMEWHAT CONFUSED THROUGHOUT SHIFT. KNOWS SHE IS IN HOSPITAL, KNOWS HER NAME, BUT UNSURE OF DATE. PT HAS HAD INCONTINENT BOWEL MOVEMENTS THIS SHIFT, LARGE AMOUNT OUT FROM BYRNE CATHETER. SKIN CARE WITH EVERY TURN ABLE TO ACCESS CERTAIN AREAS. VITALS STABLE.
--- NOTE | 2019-07-12 19:10 | NUR ---
REPORT TO BETO JOAQUIN TO ASSUME CARE
[2019-07-13 04:35] LABS: Anion Gap 1 mmol/L (6-16); Blood Urea Nitrogen 15 mg/dL (8-24); Bun/Creatinine Ratio 20.7 (12.0-20.0); CO2, Blood 37 mmol/L (21-32); Calcium, Blood 8.9 mg/dL (8.5-10.1); Chloride, Blood 102 mmol/L (98-108); Creatinine, Blood 0.72 mg/dL (0.40-1.00); Glomerular Filtration Rate >60 (60-); Glucose, Blood 141 mg/dL (70-99); Potassium, Blood 4.1 mmol/L (3.5-5.5); Sodium, Blood 140 mmol/L (136-145)
--- NOTE | 2019-07-13 05:08 | NUR ---
SHIFT SUMMARY PATIENT HAS SLEPT OFF AND ON THROUGH NIGHT. BIGGEST PROBLEM HAS BEEN KEEPING OXYGEN PRONGS IN NOSTRILS. I WITNESSED PATIENT REMOVING CANULA MULTIPLE TIMES, AND WHEN ASKING PATIENT ABOUT IT STATES "I DIDN'T KNOW WHAT THIS WAS" OR "I THOUGHT I COULD TAKE IF OFF FOR A MINUTE" DESPITE SEVERAL EDUCATION ATTEMPTS TO LEAVE IT IN, TAKING LONGER TO RECOVER, HAVING TO BE MOVED UP TO HI-SARA NASAL CANULA DUE TO INCREASED RECOVERY TIME FROM CONSTANTLY REMOVING CANULA, REMINDING HER SEVERAL TIMES TO NOT TOUCH IT, OR JUST NOT TOUCH HER FACE AT ALL, PREFERABLY TO REDUCE RISK OF REMOVING. EVEN AFTER MOST ALL OF THESE ATTEMPTS, WITNESSED HER REMOVE CANULA SOON I STEP OUT OF THE ROOM. WAS ABLE TO APPLY SMALL TEGADERMS TO CHEEKS, SEEMS TO BE WORKING THUS FAR. ASIDE FROM THAT, NO ACUTE CHANGES OVERNIGHT. ASSESSMENT IS CHARTED. VSS. NO C/O PAIN. WILL CONTINUE TO MONITOR.
--- NOTE | 2019-07-13 09:31 | NUR ---
CARE ASSUMED ASSESSMENT COMPLETED. PT AWAKE, ALERT AND ORIENTED X4, COOPERATIVE WITH CARE. VSS, PT ON 5L/HIGH FLOW NC, SPO2 >90%. PT WITNESSED REMOVING O2 TUBING ON PURPOSE TO BRING STAFF INTO ROOM INSTEAD OF USING CALL LIGHT, DESPITE CALL LIGHT BEING IN REACH AND PT BEING ABLE TO USE IT APPROPRIATELY. LS CLEAR, DIMINISHED, HR SLIGHLTY TACHYCARDIC, REGULAR. PT DENIES SOB AND CHEST PAIN, MEDICATED WITH TRAMADOL FOR 5/10 GENERALIZED PAIN. GENERALIZED EDEMA AND RIGHT SIDED LYMPHEDEMA REMAINS, SKIN CARE PROVIDED AT THIS TIME, PT REPOSITIONED. TOLERATED PO MEDS WITHOUT DIFFICULTY, IS NOW SITTING UP FOR BREAKFAST, DENIES NEEDS.
--- NOTE | 2019-07-13 12:16 | NUR ---
UPDATE BEDBATH GIVEN, NYSTATIN POWDER AND CREAM APPLIED TO EXCORIATED AND YEASTY AREAS UNDER FOLDS OF ARMS, BREASTS, PANNUS, AND LEGS. ULCERATION TO LEFT GROIN AREA UNDER PANNUS BUSTER, SCANT DRAINAGE NOTED. AREA CLEANSED DURING BEDBATH. PT REPOSITIONED WITH PILLOWS AND WEDGE, ORAL CARE COMPLETED. DR. DAMIAN IN TO SEE PT, NEW ORDERS RECEIVED. PT TOLERATING PO MEDICATIONS/FOOD WELL, CBG'S 130'S. PT NOW SITTING UP IN BED TO EAT BREAKFAST. VSS, SPO2 >90% ON 5L/NC, WILL CONTINUE TO MONITOR.
--- NOTE | 2019-07-13 16:58 | NUR ---
Initial spiritual care note: Luana stated she was in too much discomfort for visit. She was tearful and anxious. Informed RN, I will continue to attempt visit in coming days.
--- NOTE | 2019-07-13 19:30 | NUR ---
END OF SHIFT PT SLEPT ON AND OFF THIS AFTERNOON, REPOSITIONED FREQUENTLY THIS SHIFT. PT REPORTS PAIN WITH REPOSITIONING, BUT THEN DENIES PAIN AFTER MOVE IS COMPLETE, MEDICATED ONLY ONCE EARLY IN THE SHIFT TODAY. ATTEMPTED TO TITRATE O2 DOWN, WAS ABLE TO DECREASE TO 4L AND MAINTAIN SPO2 >90%. PLAN FOR O2 SLEEP STUDY TONIGHT. PT HAS NO C/O SOB OR CHEST PAIN, ONLY GENERALIZED PAIN. SKIN ASSESSMENT UNCHANGED T/O SHIFT, NYSTATIN APPLIED MULTIPLE TIMES. PT HAD GOOD RESULTS FROM DIURETICS, URINE CLEAR YELLOW, NO CRACKLES NOTED IN LUNGS. APPETITE WAS POOR TODAY. CBG'S GOOD, METFORMIN ADMINISTERED. REPORT TO ONCOMING SHIFT.
--- NOTE | 2019-07-13 20:00 | NUR ---
INITIAL ASSESSMENT PATIENT ALERT AND ORIENTED, EXCEPT TO MONTH AND YEAR. PATIENT ANXIOUS AT TIMES AND CALLS FOR NURSE VERY FREQUENTLY FOR DISCOMFORT; PATIENT CAN BECOME TEARFUL AND WHINY. PATIENT OBESE; WEAK WITH LIMITED RANGE OF MOTION. PATIENT COMPLAINS OF GENERALIZED "ALL OVER" PAIN. MULTIPLE PEOPLE AND TWO CEILING LIFTS BEING UTILIZED TO REPOSITIONG PATIENT. PATIENT HAS TEMP OF 99.3 DEGREES FAHRENHEIT. PATIENT ON 6 L NC TO KEEP SATS 90% AND GREATER. LUNGS CLEAR IN UPPER LOBES AND DIMINISHED IN LOWER LOBES. PATIENT SOB WITH EXERTION. PATIENT DENIES COUGH. HR 110. BP STABLE. RADIAL PULSES 2+ IN STRENGTH. BILAT FOOT PULSES 1+. PATIENT EDEMATOUS. HYPOACTIVE BS NOTED. LAST BM YESTERDAY PER PATIENT AND DOCUMENTATION. PATIENT REFUSING STOOL SOFTENERS. PATIENT ON ADA DIET; POOR APPETITE PER DAY SHIFT RN. CATY IN PLACE DRAINING ROMEO COLORED URINE. PATIENT RECEIVING SCHEDULED SPIRINOLACTONE. SKIN FOLDS VERY MOIST AND REDDENED, WOUNDS NOTED; PATIENT RECEIVING SCHEDULED NYSTATIN CREAM AND POWDER. IV FLUSHED AND SALINE LOCKED. PATIENT INSTRUCTED THAT IF SHE IS ABLE TO COUGH UP PHLEGM THAT SPUTUM CULTURE NEEDS COLLECTED. BED LOW, CALL LIGHT IN REACH. WILL CONTINUE TO MONITOR PATIENT FREQUENTLY THROUGHOUT SHIFT.
--- NOTE | 2019-07-13 23:38 | NUR ---
PATIENT REPOSITIONED. ROOM TEMP TURNED DOWN AND FAN PLACED ON PATIENT SHE COMPLAINED OF BEING HOT. PATIENT ON 8 L NC TO KEEP SATS 90% AND GREATER. NO OTHER ACUTE CHANGES TO NOTE ON AT THIS TIME. WILL CONTINUE TO MONITOR.
--- NOTE | 2019-07-14 01:00 | NUR ---
ASSESSMENT UPDATE PT WAS ABLE TO URINATE ON THE BEDPAN. HOWEVER NOTHING WAS IN THE BED HORNE IT WAS ON THE PADS BEHIND HER AND IN THE WASHCLOTH. PT WAS GIVEN IBU FOR PAIN AND THIS SEEMED TO HELP. PT TOOK ALL HER OTHER NIGHT TIME MEDS WITH NO ISSUES. SHE HAS BEEN CRYING OFF AND ON T/O SHIFT. THIS RN HAS BEEN REPOSITIONING PT CONSTANTLY. PT CON'T TO STATE SHE IS JUST NOT GOING TO BE ABLE TO GET COMFORTABLE. REPORT WAS GIVEN TO MEAGAN PÉREZ ON MEDICAL FLOOR. PT WAS MOVED UP THERE BY THIS NURSE AND MEDICAL FLOOR REMOTE CONTROL MIRROR INSTALLER. PT WAS STABLE UPON THIS RN LEAVING ROOM. REMOTE CONTROL MIRROR INSTALLER AND RECIEVING RN IN ROOM UPON THIS RN LEAVING.
--- NOTE | 2019-07-14 03:59 | NUR ---
PATIENT REPOSITIONED. PRN IBUPROFEN GIVEN FOR COMPLAINT OF L LEG PAIN. PATIENT AFEBRILE. PATIENT SATTING 90% AND GREATER ON 6 TO 8 L NC. HR IN THE LOW 100S. BP STABLE. NO OTHER ACUTE CHANGES TO NOTE ON. WILL CONTINUE TO MONITOR.
[2019-07-14 04:08] LABS: Anion Gap 1 mmol/L (6-16); Blood Urea Nitrogen 14 mg/dL (8-24); Bun/Creatinine Ratio 20.3 (12.0-20.0); CO2, Blood 38 mmol/L (21-32); Chloride, Blood 100 mmol/L (98-108); Creatinine, Blood 0.69 mg/dL (0.40-1.00); Glomerular Filtration Rate >60 (60-); Glucose, Blood 126 mg/dL (70-99); Potassium, Blood 4.1 mmol/L (3.5-5.5); Sodium, Blood 139 mmol/L (136-145)
--- NOTE | 2019-07-14 05:55 | NUR ---
SHIFT SUMMARY PATIENT REMAINED MOSTLY ALERT AND ORIENTED. PATIENT TEARFUL AT TIMES, STATING THAT SHE WAS UNCOMFORTABLE. PATIENT REPOSITIONED VERY FREQUENTLY THROUGHOUT SHIFT WITH HELP OF COWORKERS AND 2 CEILING LIFTS. PATIENT GIVEN PRN TRAMADOL AND IBUPROFEN FOR COMPLAINTS OF "ALL OVER" PAIN AND LEG PAIN. PATIENT SLEPT FOR SHORT TIME, TWICE DURING SHIFT. PATIENT HAD TMAX OF 99.3 DEGREES FAHRENHEIT. PATIENT SATTED 90% AND GREATER ON 6 TO 8 L HF NC. PATIENT SOB WITH EXERTION. NO COUGH NOTED. LUNGS REMAINED CLEAR IN UPPER LOBES AND DIMINISHED IN LOWER LOBES. PATIENT CONTINUALLY TAKING O2 OFF AND NOT REPLACING; PATIENT QUICKLY DESATTED DOWN TO 70S AND 80S. HR REMAINED IN LOW 100S. BP REMAINED STABLE. PATIENT DID NOT HAVE BM THIS SHIFT. PATIENT TOLERATED WATER AND ICE CHIPS WELL. BYRNE DRAINED ADEQUATE AMOUNT OF ROMEO COLORED URINE. O2 STUDY ATTEMPTED OVERNIGHT. BED LOW, CALL LIGHT IN REACH. WILL CONTINUE TO MONITOR FREQUENTLY UNTIL REPORT GIVEN TO ONCOMING DAY SHIFT NURSE SHORTLY.
--- NOTE | 2019-07-14 10:51 | NUR ---
CARE ASSUMED ASSESSMENT COMPLETED. O2 6L/NC, SPO2 MID 90'S, NO CRACKLES NOTED, LS DISTANT. HR 100-110, OTHER VSS. PT REMAINS ANXIOUS, CRIES INTERMITTENTLY D/T FRUSTRATION. REPORTS GENERALIZED PAIN THAT RESOLVES WITH REPOSITIONING. SKIN ASSESSMENT UNCHANGED FROM YESTERDAY. DR. DAMIAN IN TO SPEAK WITH PATIENT REGARDING PLAN OF CARE, EGG PRODUCER ATTEMPTING TO IDENTIFY RESOURCES AND FACILITIES FOR POSSIBLE PLACEMENT. PARTIAL BEDBATH GIVEN, WOUNDS CLEANSED WITH SOAP AND WATER, NYSTATIN POWDER AND CREAM, SKIN BARRIER, AND POWDER APPLIED FOR PROTECTION. PT REPOSITIONED FREQUENTLY USING CEILING LIFTS. PT TOLERATING PO MEDICATIONS WITH WATER WITHOUT DIFFICULTY, APPETITE IS POOR. PT/OT IN TO WORK WITH PATIENT, PT DOES NOT PARTICIPATE WELL.
--- NOTE | 2019-07-14 15:27 | NUR ---
UPDATE PT HAS A POOR APPETITE TODAY, STATES SHE IS NOT HUNGRY AND IS REFUSING MEALS. DRINKING ADEQUATE AMOUNTS OF WATER. PT ON 6L/NC, WILL TITRATE DOWN ABLE, SPO2 HIGH 90'S, REMAINS SOB WITH EXERTION. PT WORKED WITH PT/OT, SPOKE WITH RELAY RECORD CLERK AND HAS MADE A PLAN WITH STAFF ABOUT GOING HOME WITH THE EQUIPMENT NEEDED FOR HER FAMILY TO ASSIST IN PROVIDING HER CARE. BEDBATH STARTED THIS MORNING, FINISHED THIS AFTERNOON, LINENS CHANGED, SKIN CARE DONE. CATY CASTILLO'D PER ORDERS. PT PLACED ON BEDPAN TO ATTEMPT TO VOID, ABLE TO MOVE SELF IN BED AND ASSIST WITH CARES MUCH BETTER TODAY THAN YESTERDAY, REQUIRES ONLY 1 PERSON ASSIST TO TURN FOR BEDPAN PLACEMENT. PT COOPERATIVE AND FOLLOWS DIRECTIONS THIS AFTERNOON.
--- NOTE | 2019-07-14 18:43 | NUR ---
END OF SHIFT RT ATTEMPTED TO PUT PT ON BIPAP EARLIER PER ORDERS, PT REFUSED STATING SHE FELT "TOO MUCH PRESSUER" FROM BIPAP. PT HAS VOIDED SINCE CATY WAS DC'D, NO DIFFICULTIES. PT ALSO HAD A SMALL BM IN BEDPAN, CONTINUES TO MOVE SELF IN BED WELL WITH 1 PERSON ASSIST. VSS, SPO2 MID 90'S ON 5L/NC. PT REMAINS ALERT AND ORIENTED, CONTINUES TO CRY INTERMITTENTLY. PT C/O ABD DISCOMFORT, VOMITED ABOUT 20ML GREEN BILE, MEDICATED WITH ZOFRAN PER ORDERS. PT HAS BEEN REFUSING MEALS ALL DAY, ENCOURAGED TO DRINK ENSURE ABLE. RT AT BEDSIDE ATTEMPTING TO PLACE BIPAP. REPORT TO ONCOMING SHIFT.
--- NOTE | 2019-07-14 20:30 | NUR ---
INITAL ASSESSMENT PT IS ALERT AND ORIENTED. SHE IS COMPLAINING OF PAIN T/O HER BODY. SHE HAS LOTS OF PAIN TO HER LEFT LEG. PT IS UP ON BEDPAN AND WANTS TO STAY ON BED HORNE TILL SHE URINATES. PLACED A WASHCLOTH BETWEEN HER LEGS SHE REQUESTED. SHE HAS SOME ANXIETY ABOUT BEING ABLE TO PEE R/T BYRNE CATH BEING REMOVED. PT HOWEVER HAS URINATED SINCE BYRNE CATH WAS REMOVED. VITALS ARE STABLE. PT HAS 6L N/C SHE HAS BASELINE SHALLOW BREATHING. SOB NOTED WITH ANY MOVEMENT. SHE DOES RECOVERY QUICKLY. SEE NURSES ASSESSMENT REGARDING PT'S SKIN. PICTURES IN THE CHART. PT ALSO HAS PILLOW CASES IN SKIN FOLDS AND THESE WERE CHANGED. WILL CON'T TO MONITOR AND KEEP PT SAFE T/O SHIFT. PT IS ABLE TO USE CALL LIGHT.
--- NOTE | 2019-07-14 23:00 | NUR ---
RECEIVED REPORT FROM ODILIA GEOPHYSICAL PROSPECTOR. PT TRANSFERRED TO MEDICAL FLOOR VIA BARIATRIC BED. PT ORIENTED TO ROOM, CLEANED UP AND REPOSITIONED TO POSITION OF COMFORT. DENIES ANY FURTHER NEEDS AT THIS TIME. CALL LIGHT, POSSESSIONS IN REACH, WILL CONTINUE TO MONITOR.
[2019-07-15 07:02] LABS: Anion Gap 1 mmol/L (6-16); Blood Urea Nitrogen 13 mg/dL (8-24); Bun/Creatinine Ratio 20.2 (12.0-20.0); CO2, Blood 39 mmol/L (21-32); Calcium, Blood 8.7 mg/dL (8.5-10.1); Chloride, Blood 99 mmol/L (98-108); Creatinine, Blood 0.64 mg/dL (0.40-1.00); Free Thyroxine 0.87 ng/dL (0.70-1.60); Glomerular Filtration Rate >60 (60-); Glucose, Blood 127 mg/dL (70-99); Potassium, Blood 4.1 mmol/L (3.5-5.5); Sodium, Blood 139 mmol/L (136-145)
[2019-07-15 07:15] LABS: PCO2 Arterial 91.8 mmHg (35-45); PO2 Arterial 112 mmHg (80-100); pH Blood Arterial 7.25 (7.35-7.45)
--- NOTE | 2019-07-15 07:44 | NUR ---
SHIFT SUMMARY PT RESTLESS T/O NIGHT, CONSTANTLY PULLING AT NC. ENCOURAGED TO WEAR CPAP, REFUSED, STATING IT MAKES HER FEEL CLAUSTROPHOBIC. O2 NEEDS INCREASED, TITRATED O2 TO 10L [place] NC. SATS BETWEEN 88-94%. PT NOW A&O X2, STATING SHE IS HERE BECAUSE NOBODY LIKES THE PRESIDENT, INCREASINGLY CONFUSED. DR. DUDLEY NOTIFIED OF PT STATUS, ORDERS RECEIVED. NO OTHER ACUTE EVENTS NOTED T/O NIGHT. CALL LIGHT, POSSESSIONS IN REACH, BED IN LOWEST POSITION WITH ALARMS ON. RT AT BEDSIDE PUTTING PT ON CPAP. REPORT GIVEN TO DAY SHIFT RN.
--- NOTE | 2019-07-15 10:45 | NUR ---
Called to pt's room by staff to speak with pt's mother, Ely, on the phone as pt was in the process of being transferred from medical floor to ICU. Emothional support given to Ely. Luana is having trouble breathing and is anxious and has the CPAP machine on. Ely reports that up until 2 weeks ago Luana was able to ambulate to the bathroom from her bed at home. Ely reports Luana reported a "pop" and has since then been unable to ambulate. Multilple family members live with Luana, her parents and children ages 9 and 18, and assist with her care. 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 Ely states that Luana has chronic lymphedema in her abdomen. She reports that her daugther doesn't sleep well at night, and she usually gets her best sleep from about [id number]. She states Luana can be "very stubborn and strong willed" at times. Luana has a bariatric phone consultation scheduled on 07/19 for weight managment options. Ely stated that it is difficult to care for Luana at home due to her morbid obesity Reviewed chart notes and labs, meds and answered questions for Ely. Ely states she will try and get some sleep this morning as she worked medical accountant last night. Will plan to follow up with Ely later today to give an update after Luana is settled in ICU. Luana's cell phone and glass curvature gauger cord hand carried to ICU 9. Updated ICU nursing that pt's mother was aware that pt was transferred back to ICU.
[2019-07-15 10:53] LABS: PCO2 Arterial 90.3 mmHg (35-45); PO2 Arterial 68.6 mmHg (80-100); pH Blood Arterial 7.27 (7.35-7.45)
--- NOTE | 2019-07-15 11:12 | NUR ---
ASSUMED CARE OF PT AT 1030 UPON HER TRANSFER FROM MEDICAL FLOOR. ARRIVED IN BARIATRIC BED, ON BIPAP 20/10, FIO2 40%, RR 22-35. PER FTF REPORT FROM Kevin VIEIRA RN, PT DID NOT RECEIVE ANY PO MEDS THIS MORNING D/T DECREASED LOC, BUT WAS GIVEN TRAMADOL X 1 PRIOR TO ARRIVAL IN ICU. O2 SAT 87-95%; ABG SHOWS CRITICAL PH AT 7.25. PT AROUSES TO SPEECH, ASKING FOR WATER. PT EDUCATED THAT D/T HER RESP STATUS, WATER WOULD BE GIVEN WHEN SHE IS MORE STABLE; VERBALIZED UNDERSTANDING. REQUIRES FREQUENT REINFORCEMENT THAT BIPAP MUST STAY ON AT ALL TIMES SINCE O2 SAT DROPS TO 70'S WHEN OFF. PLAN IS TO KEEP PT ON BIPAP UNTIL RESP STATUS IMPROVES.
--- NOTE | 2019-07-15 15:20 | NUR ---
Returned to ICU this afternoon to check in on Luana. She remains on Bipap but recently had a short break from it. She is anxious and tearful at times. She reports she hurts "all over" and was recently reposited using the lift by multiple staff members. She c/o "My stomach hurts." Upon further questioning, she reports that she feels nauseated. Updated nursing on pt's complaint of nausea. This visit was therapeutic in nature and kept short as to not wear Luana out and create more anxiety and dyspnea. Spoke with Jo who reports that she left a message for Ely, pt's mother, to give her an update. Ely has not returned her call as of the time of my visit. Updated nursing on my phone conversation with Ely earlier today. PC will plan to meet with Luana to discuss some short and senior care goals for her care when her breathing is more stable. At this time she is a full code.
--- NOTE | 2019-07-15 15:26 | NUR ---
TRANSFER SUMMARY REPORT TAKEN FROM MEAGAN PÉREZ, PT PLACED ON HIGH FLOW N/C @ 10 LITERS. 0705 STAT ABG ORDERED PT SATING FROM 88-94%. DURAN RT CALLED 0715 WITH CRITICAL ABG LEVELS. 0735 PT ON CONTINOUS O2, DURAN RT PLACED CPAP. 0740 DR. DAMIAN NOTIFIED OF CRITICAL RESULTS, NO NEW ORDERS PLACED. 0800 PT SATING AT 84%, PT UNCOOPERATIVE WITH LEAVING BIPAP ON PT STATES "I CAN'T BREATH" ENCOURAGING PT TO LEAVE BIPAP ON, CALLED DURAN IN RT, INSTRUCTED THIS RN TO TURN BIPAP 6-10. PT BECOMES INCREASINGLY ANXIOUS, ALISON PÉREZ AT BEDSIDE ENCOURAGING PT TO FOCUSE ON BREATHING TO REDUCE ANXIETY. 0950 DR DAMIAN UPDATED IN CHANGE OF STATUS AND PT STILL UNABLE TO MAINTAIN O2 SATURATION RANGING 70'- 80'S, RT CALLED TO ROOM. 1000 PT PLACED ON V60 BIPAP INCREASED VENTILATION NEEDED, ALISON PÉREZ CALLED FOR ICU TRANSFER. 1030 REPORT GIVEN TO QUENTIN PÉREZ AT BEDSIDE. DUE TO URGENCY OF SITUATION WAS UNABLE TO CALL REPORT OVER PHONE, LILIANA GREGORIO NOTIFIED AND APPROVED TRANSFER. NO AM MEDS GIVEN.
--- NOTE | 2019-07-15 19:16 | NUR ---
SHIFT SUMMARY: A&O X 3, SLEEPY AT TIMES, MOANS ALMOST CONTINUOUSLY. C/O PAIN IN BACK AND LEGS, UNABLE TO GET COMFORTABLE WITH FREQUENT REPOSITIONING; MEDICATED WITH TRAMADOL X 1 WITH ADEQUATE EFFECT. REMAINS IN SINUS TACH, HR 100-110'S, BP STABLE. LUNGS CLEAR TO DIM, LABORED BREATHING. ON BIPAP, 20/10, BACK UP RATE 12 WITH 25% FIO2; O2 SATS VARY BETWEEN 85-93% BUT SHE DESATS TO 70'S ALMOST IMMEDIATELY WHEN BIPAP REMOVED TO DRINK. SHE HAS REQUIRED ALMOST CONSTANT EDUCATION ABOUT RATIONALE FOR KEEPING BIPAP ON UNTIL ABG RECOVERS, KEEPS ASKING FOR "BREAKS". CBG 120'S, METFORMIN NOT GIVEN, APPETITE POOR AND CANNOT BE OFF BIPAP LONG ENOUGH TO EAT.
--- NOTE | 2019-07-15 20:07 | NUR ---
ASSUMED PT CARE FROM BETO HOBBS AT 1915 PT ON BIPAP 09/01; FIO2 35% WITH BIOX 95%. DECREASED FIO2 TO 25% TO MAINTAIN BIOX 88-90% PER DR. GALLARDO'S ORDERS. PT ALERT AND ORIENTED AND ABLE TO MAKE NEEDS KNOWN. CONTINUES TO ASK FOR BIPAP BREAKS AND DOESN'T WANT TO WEAR THE BIPAP SHE STATES SHE "CAN'T BREATHE". EDUCATED PT ON RISKS VS BENEFITS OF WEARING BIPAP AND THAT IF SHE DOESN'T WANT TO COMPLY WITH WEARING IT THEN WE SHOULD DISCUSS CHANGING OF CODE STATUS TO MAKE HER COMFORTABLE AND ABIDE BY HER WISHES. PT BECAME EMOTIONAL AND TEARFUL AND STATED SHE WOULD WEAR THE BIPAP. WILL CALL MD TO SEE ABOUT ANXIETY MEDICATIONS IN ORDER TO HELP PT WITH BEING MORE COMFORTABLE ON BIPAP. PT ASSISTED TO BEDPAN TO URINATE. SHE REQUIRES TWO PEOPLE TO ASSIST TURN; HOWEVER, SHE IS ABLE TO HELP ASSIST BY PULLING HER UPPER BODY OVER. PT APPEARS TO BE IN SINUS TACHYCARDIA WITH HR LOW 100'S AND INCREASES TO 110'S WITH EXERTION. RESP RATE IS UPPER 20'S TO 30'S. BP'S STABLE, SEE FLOWSHEET. PT CAN'T TOLERATE LYING FLAT FOR VERY LONG D/T SOB. CALL LIGHT IS WITHIN REACH; PT IS ABLE TO MAKE HER NEEDS KNOWN. WILL CONTINUE TO MONITOR.
--- NOTE | 2019-07-15 20:19 | NUR ---
DR. GALLARDO PLACED CALL TO DR. GALLARDO IN REGARDS TO PT'S ANXIETY AND NOT TOLERATING BIPAP. WANTS TO TRY AND HOLD OFF ON ANYTHING FOR ANXIETY HE BELIEVES THIS IS MORE BEHAVIOR RELATED D/T PT'S REFUSAL OF CARE AND UNCERTAINTY TO WHAT SHE WANTS. WILL CONTINUE TO ENCOURAGE BIPAP USE AND CONTINUE TO MONITOR BEHAVIORS. ORDERS TO KEEP BIOX AT 88%
--- NOTE | 2019-07-16 03:03 | NUR ---
REASSESSMENT PT HAS BEEN TOLERATING BIPAP MORE. NOT EMOTIONAL IN REGARDS TO HAVING TO WEAR THE BIPAP. RT HAS BEEN CALLED TO BEDSIDE TO SWAP OUT MASKS PT CONTINUED TO HAVE MASSIVE AIR LEAKS AND UNABLE TO ADEQUATELY ASSESS OXYGENATION STATUS. MEDIUM MASK APPEARS TO FIT BETTER AND PT IS MORE SATISFIED WITH MASK. PT HAS YET TO SLEEP THIS SHIFT. VERY CONCERNED IN REGARDS TO SOMETHING HAPPENING TO HER AND HER DAUGHTER NOT HAVING ANYONE. THERE ARE ALSO SOME GUARDIANSHIP ISSUES PT'S MOM DROPPED OFF PAPERWORK FOR PT TO SIGN IN ORDER TO TAKE TO THE COURTS. UNKNOWN EXACT CIRCUMSTANCES; HOWEVER, THIS COULD BE WHAT HAS BEEN KEEPING PT AWAKE. MOOD IS MORE CALM AND COOPERATIVE. SHE HAS BEEN ABLE TO SELF SOOTHE HER ANXIETY AND HASN'T BEEN TEARFUL. UTILIZES CALL LIGHT APPROPRIATELY TO ASK FOR BEDPAN. SHE IS A ONE PERSON TO GET BEDPAN UNDERNEATH HER SHE DOES A GOOD JOB HELPING HOLD HER UPPER BODY; HOWEVER, SHE REQUIRES TWO PEOPLE TO CLEAN DENISHA AREA AND PERFORM SKIN CARE D/T THE NEED THE HOLD HIPS UP.
--- NOTE | 2019-07-16 06:17 | NUR ---
END OF SHIFT SUMMARY PT REQUESTED BREAK FROM BIPAP AROUND 0500. PLACED ON [place] NC AT 5L WITH OXYGEN SATURATIONS LOW 90'S. PT IS ALERT AND ORIENTED AND ABLE TO MAKE NEEDS KNOWN. PT TOLERATED POSITION CHANGES T/O MOST OF NIGHT; HOWEVER, THIS MORNING AFTER BEING CHANGED TO [place] NC, PT STARTING TO REQUEST FREQUENT, EVERY 15 MINUTE, POSITION CHANGES. PT IS UNREALISTIC WITH GOALS OF BEING FREE OF DISCOMFORT THERE ISN'T ONE POSITION THAT IS COMFORTABLE FOR HER. DISCUSSED REALISTIC GOALS OF POSITION CHANGES. PT BECAME TEARFUL AND STATED "IT JUST SUCKS NOT BEING ABLE TO REPOSITION YOURSELF." I DEMONSTRATED EMPATHY WITH PT AND VERBALIZED UNDERSTANDING OF HER FRUSTRATION. DISCUSSED IF HER CURRENT POSITION WAS TOLERABLE THEN WE WOULD REPOSITION AGAIN IN AN HOUR; PT AGREED. PT SOAKED BED THIS MORNING AFTER UTILIZING BEDPAN; THEREFORE, COMPLETE LINEN CHANGE WAS PERFORMED WITH THOROUGH DENISHA AND SKIN CARES PROVIDED. CALL LIGHT WITHIN REACH; PT ABLE TO UTILIZE APPROPRIATELY. WILL CONTINUE TO MONITOR UNTIL REPORT IS HANDED OFF TO ONCOMING RN.
[2019-07-16 07:09] LABS: BASOPHILS ABSOLUTE AUTO 0.03 K/mm3 (0.00-0.23); BASOPHILS PERCENT AUTO 1 % (0-2); EOSINOPHILS ABSOLUTE AUTO 0.28 K/mm3 (0.00-0.68); EOSINOPHILS PERCENT AUTO 5 % (0-6); Hematocrit 40.5 % (33.0-51.0); Hemoglobin 11.1 g/dL (11.5-16.0); IMMATURE GRAN ABSOLUTE AUTO 0.03 K/mm3 (0.00-0.10); IMMATURE GRAN PERCENT AUTO 1 % (0-1); LYMPHOCYTES ABSOLUTE AUTO 0.76 K/mm3 (0.84-5.20); LYMPHOCYTES PERCENT AUTO 13 % (21-46); MONOCYTES ABSOLUTE AUTO 0.41 K/mm3 (0.16-1.47); MONOCYTES PERCENT AUTO 7 % (4-13); Mean Corpuscular HGB 24.3 pg (26.0-34.0); Mean Corpuscular HGB Conc 27.4 g/dL (31.5-36.5); Mean Corpuscular Volume 89 fL (80-100); NEUTROPHILS ABSOLUTE AUTO 4.59 K/mm3 (1.96-9.15); NEUTROPHILS PERCENT AUTO 75 % (41-73); Platelet Count 150 K/mm3 (150-400); RDW Coefficient Variation 18.4 % (11.7-14.2); RDW Standard Deviation 58.8 fL (35.1-46.3); Red Blood Cell Count 4.56 M/mm3 (3.80-5.20)
[2019-07-16 07:23] LABS: PCO2 Arterial 74 mmHg (35-45); PO2 Arterial 80.7 mmHg (80-100); pH Blood Arterial 7.35 (7.35-7.45)
[2019-07-16 07:40] LABS: Alanine Aminotransfer (ALT/SGP 28 U/L (12-78); Albumin, Blood 2.9 g/dL (3.4-5.0); Albumin/Globulin Ratio 0.8 (0.8-1.8); Alk Phos 95 U/L (50-136); Anion Gap 2 mmol/L (6-16); Aspartate Aminotrans (AST/SGOT 16 U/L (12-37); Bilirubin, Total 1.8 mg/dL (0.1-1.0); Blood Urea Nitrogen 12 mg/dL (8-24); Bun/Creatinine Ratio 18.6 (12.0-20.0); CO2, Blood 40 mmol/L (21-32); Calcium, Blood 9.1 mg/dL (8.5-10.1); Chloride, Blood 99 mmol/L (98-108); Creatinine, Blood 0.65 mg/dL (0.40-1.00); Globulin, Blood 3.8 g/dL (2.2-4.0); Glomerular Filtration Rate >60 (60-); Glucose, Blood 110 mg/dL (70-99); Magnesium, Blood 1.6 mg/dL (1.6-2.4); Phosphorus, Blood 2.8 mg/dL (2.5-4.9); Potassium, Blood 3.8 mmol/L (3.5-5.5); Sodium, Blood 141 mmol/L (136-145); Total Protein, Blood 6.7 g/dL (6.4-8.2)
--- NOTE | 2019-07-16 08:21 | NUR ---
BEDSIDE REPORT TAKEN. PT AWAKE WITH BIPAP ON. SATS BETWEEN 85-96%. PT TOOK OFF BIPAP, SATS INITIALLY 98%, O2 PLACED, SATS DROPPED TO 80% WITHIN 1 MIN. BIPAP REPLACED. GLUCOPHAGE HELD FOR BS 96 PT NPO. PT SOMEWHAT ANXIOUS AND TEARFUL. PT OVERALL DROWSY BUT AWAKENS TO QUESTIONS BUT QUICKLY FALLS BACK TO SLEEP. DR GALLARDO IN AT 0800; FULL UPDATE GIVEN. FIO2 ON BIPAP TITRATED TO 30%; SATS VARY BETWEEN 85-92%. THIS IS OKAY WITH DR GALLARDO.
[2019-07-16 10:31] LABS: Source, Urine Catheter
--- NOTE | 2019-07-16 10:32 | NUR ---
Brief Pt visit this AM. Pt resting in bed with her eyes closed. Pt briefly opnes her eyes with verbal stimuli. Attempted to speak with Pt but her eyes remain closed during this RN's visit. Spoke with Bedside RN Audrey prior to Pt visit and discussed case. Palliative Care will F/U with Pt at a later time when more receptive to visit.
[2019-07-16 10:35] LABS: Blood, Urine 5+ (Neg); Glucose Qualitative, Urine Neg (Neg); Ketones, Urine 2+ (Neg); Leukocyte Esterase, Urine 3+ (Neg); Nitrite, Urine Pos (Neg); Protein, Urine 2+ (Neg); Urobilinogen, Urine 3+ (Normal)
--- NOTE | 2019-07-16 10:47 | NUR ---
PT UNABLE TO VOID AFTER SEVERAL ATTEMPTS. BYRNE CATH PLACED WITH ASSISTANCE OF THREE RN'S D/T PT'S OBESITY. ONCE MEATUS VISUALIZED CATHETER PASSED W/O DIFFICULTY. DARK ABMBER U/O. WEEPING EDMEA NOTED TO LEFT CHEST/SIDE. PT'S MOTHER GIVEN UPDATE PER PT REQUEST.
[2019-07-16 10:52] LABS: Appearance, Urine Hazy (Clear); Bilirubin, Urine 1+ (Neg); Color, Urine Amber (P-Yellow)
[2019-07-16 10:53] LABS: Bacteria Many /hpf; Squamous Epithelial Cells Few /hpf (Few); White Blood Cells, Urine TNTC /hpf (0-5)
--- NOTE | 2019-07-16 13:42 | NUR ---
PT HAS BEEN OFF BIPAP AND ON HIGH SARA O2 AT 3L FOR 2 HOURS NOW AND TOLERATING WELL. PT ABLE TO SPEAK TO MOM ON HER CELL PHONE AND DRINK WATER. VSS. PLAN FOR BATH WITH LINEN CHANGE SHORTLY. LASIX 40MG IVP GIVEN TO PT AT [address] GALLARDO. 2L DARK ROMEO U/O.
--- NOTE | 2019-07-16 15:28 | NUR ---
PT GIVEN FULL BATH AND LINEN CHANGE WITH THE ASSISTANCE OF 3 ADDITIONAL RN'S (INCLUDING J2EE ANDROID DEVELOPER). PT CRIED AND MOANED T/O BATH. PT TEARFUL AND ANGRY. SEVERAL FOLDS OF PT'S LEG'S, ABD, BACK, HAD FOUL SMELLING AND PURULENT DRAINAGE. SKIN IN THESE AREA'S ALSO VERY EXCORIATED AND BLEEDING SLIGHTLY. PT REFUSED CARE TO THESE AREA'S. PT REFUSED PICTURES, FURTHER CLEANING, AND POTENIAL PROTECTIVE DRSG TO THE AREAS. OPEN WOUND WITH PURULENT DRAINAGE ALSO NOTED UNDER LEFT PANUS NEAR INGUINAL CREASE. PT REFUSED CARE TO THIS WOUND. WOUND ABOUT 3CM AND OVAL IN SHAPE. PT DEMANDED TO BE TURNED BACK TO SAME SIDE SHE HAD BEEN LAYING ON; ABLE TO ENCOURAGE PT TO STAY ON NEW SIDE. PT EDUCATED ON IMPORTANCE OF SKIN/WOUND CARE, AND THAT WOUND INFECTIONS CAN LEAD TO LONGER HOSPITAL STAYS. WILL ATTEMPT TO ADDRESS WOUND CARE LATER IN SHIFT. PT WORKING W P.T. NOW AND IS COOPERATIVE W PHYSICAL THERAPIST.
--- NOTE | 2019-07-16 17:53 | NUR ---
PT IN IMPROVED MOOD. DENIES SOB AND HAS BEEN OFF BIPAP SINCE AROUND NOON. SATS 93% ON 3L HIGH SARA O2, OCCASSIONALLY FALLS TO MID 80'S BUT ALWAYS COMES RIGHT BACK UP AGAIN. PT PLACED IN HIGH FOWLERS USING REVERSE TRANDELENBURG. PT ABLE TO EAT 60% OF DINNER WITH FLUIDS. 5L PLUS U/O TODAY VIA CATHETER AFTER LASIX.
--- NOTE | 2019-07-16 19:10 | NUR ---
ASSUMED CARE OF PT, BEDSIDE REPORT RECEIVED. PT IS RESTING QUIETLY RECLINING IN BED WITH BIPAP IN PLACE, PRESSURES NOTED 20/12 FIO2 30% RESP RATE LOW 20S AT THIS TIME, SATS ARE MID 90S, GOAL PER OFFGOING RN IS 88-92% HOWEVER PT HAS BEEN LABILE WITH SATS AND HAS NOT TOLERATED DECREASES IN FIO2 BELOW 30%, LUNGS ARE DIM MID TO BASES BILAT AT THIS TIME WITH EXP WHEEZE NOTED TO LEFT UPPER LOBE ON ANTERIOR AUSCULTATION, PT HAS A RARE DRY COUGH AND DENIES SPUTUM PRODUCTION, SHE SPEAKS IN SHORT SENTENCES EVEN WITH BIPAP IN PLACE, BACKUP RATE IS NOTED AT 12. HRR, SINUS TACH ON MONITOR, RATE CURRENTLY 100 TO LOW 110S, PULSES ARE FULL, SKIN IS PWD, PRESSURES MAINTAINING. ABD OBESE, HYPOACTIVE DISTANT BOWEL TONES ARE NOTED. TEMP PROBE BYRNE IN PLACE HEMATURIA IS NOTED IN CATHETER DRAINAGE TUBING, URINE IN UROMETER IS DARK ROMEO, WILL HOLD HS LOVENOX AND MONITOR BLEEDING. PT HAS MULTIPLE AREAS OF RASHES AND WOUNDS TO SKIN FOLDS AND COCCYX, DISCUSSED NEED FOR PROPER WOUND CARE AND PT IS AGREEABLE IN THE NEAR FUTURE, SHE DISCUSSES HOME SKIN CARE REGIMEN WELL WOUND CARE THAT IS PROVIDED BY HER MOTHER WHO IS A CURRENT RN. PLAN DISCUSSED WITH PT TO MAINTAIN BIPAP USE THROUGHOUT NOC AND CONTINUE TURNS EVERY 2 HOURS, PER OFFGOING RN, PT HAS PREFERRED TO BE POSITIONED ON RIGHT SIDE, DISCUSSED NEED FOR POSITION CHANGE TO OPPOSITE SIDE FOR LONG PT IS ABLE TO TOLERATE SECONDARY TO INCREASED RISK FOR PRESSURE ULCERS, PT IS AGREEABLE AT THIS TIME. IS PROVIDED, USE EXPLAINED AND ENCOURAGED WELL PURPOSE, UNDERSTANDING IS VERBALIZED AT THIS TIME, WILL CONT TO REINFORCE.
--- NOTE | 2019-07-16 19:22 | NUR ---
PT PLACED BACK ON BIPAP AT 1800 D/T SATS STAYING AT 82-83%. PT SOMEWHAT SOB WELL. PT TURNED COMPLETELY OVER ON RIGHT SIDE TO EXAMINE BACK AND COCCYX. SATURATED FLOMAX PAD REMOVED FROM INNER THIGHS. PT ATTEMPTED TO TURN ON RIGHT SIDE BUT WAS UNABLE TO TOLERATE THAT SIDE; PT TURNED BACK TO LEFT SIDE. ULTRAM GIVEN FOR C/O PAIN TO LEFT LEG AND "EVERYWHERE" PAIN. PT TEARFUL DURING BEDSIDE REPORT.
[2019-07-17 03:34] LABS: BASOPHILS ABSOLUTE AUTO 0.02 K/mm3 (0.00-0.23); BASOPHILS PERCENT AUTO 0 % (0-2); EOSINOPHILS ABSOLUTE AUTO 0.27 K/mm3 (0.00-0.68); EOSINOPHILS PERCENT AUTO 5 % (0-6); Hematocrit 39.8 % (33.0-51.0); Hemoglobin 10.8 g/dL (11.5-16.0); IMMATURE GRAN ABSOLUTE AUTO 0.02 K/mm3 (0.00-0.10); IMMATURE GRAN PERCENT AUTO 0 % (0-1); LYMPHOCYTES ABSOLUTE AUTO 0.83 K/mm3 (0.84-5.20); LYMPHOCYTES PERCENT AUTO 15 % (21-46); MONOCYTES ABSOLUTE AUTO 0.48 K/mm3 (0.16-1.47); MONOCYTES PERCENT AUTO 8 % (4-13); Mean Corpuscular HGB 24.1 pg (26.0-34.0); Mean Corpuscular HGB Conc 27.1 g/dL (31.5-36.5); Mean Corpuscular Volume 89 fL (80-100); Mean Platelet Volume 11.1 fL (9.1-12.4); NEUTROPHILS ABSOLUTE AUTO 4.12 K/mm3 (1.96-9.15); NEUTROPHILS PERCENT AUTO 72 % (41-73); Platelet Count 131 K/mm3 (150-400); RDW Coefficient Variation 18.2 % (11.7-14.2); RDW Standard Deviation 58.7 fL (35.1-46.3); Red Blood Cell Count 4.49 M/mm3 (3.80-5.20); White Blood Cell Count 5.74 K/mm3 (4.00-11.30)
[2019-07-17 03:51] LABS: Alanine Aminotransfer (ALT/SGP 30 U/L (12-78); Albumin, Blood 2.8 g/dL (3.4-5.0); Albumin/Globulin Ratio 0.8 (0.8-1.8); Alk Phos 96 U/L (50-136); Anion Gap 3 mmol/L (6-16); Aspartate Aminotrans (AST/SGOT 19 U/L (12-37); Bilirubin, Total 1.9 mg/dL (0.1-1.0); Blood Urea Nitrogen 12 mg/dL (8-24); Bun/Creatinine Ratio 18.8 (12.0-20.0); CO2, Blood 42 mmol/L (21-32); Calcium, Blood 8.8 mg/dL (8.5-10.1); Chloride, Blood 95 mmol/L (98-108); Creatinine, Blood 0.64 mg/dL (0.40-1.00); Globulin, Blood 3.7 g/dL (2.2-4.0); Glomerular Filtration Rate >60 (60-); Glucose, Blood 136 mg/dL (70-99); Magnesium, Blood 1.3 mg/dL (1.6-2.4); Phosphorus, Blood 2.9 mg/dL (2.5-4.9); Potassium, Blood 3.5 mmol/L (3.5-5.5); Sodium, Blood 140 mmol/L (136-145); Total Protein, Blood 6.5 g/dL (6.4-8.2)
--- NOTE | 2019-07-17 06:34 | NUR ---
PT INITIALLY REQUIRED TURNS NEAR EVERY 30 MINUTES, SHE WAS NOTED TEARFUL AT TIMES AND STATED "I DON'T KNOW" AND "I CAN'T DESCRIBE IT, I DON'T KNOW HOW" SHE IS AGREEABLE TO "WHATEVER YOU THINK WILL HELP" REGARDING DISCOMFORT THAT SHE STATES IS JUST FROM LYING IN BED FOR TOO LONG. SHE STATES THAT SHE IS WORRIED REGARDING STRENGTH SHE FEELS SO MUCH WEAKER AT THIS TIME THAN WHAT HER BASELINE IS. SHE STATES THAT SHE IS FRUSTRATED THAT SHE CAN'T MOVE HER LEGS ON HER OWN AND THAT SHE TYPICALLY USES DEODORANT AT HOME TO MAKE IT TO WHERE HER SKIN WILL SLIDE ENOUGH THAT SHE CAN MOVE, SHE WAS AGREEABLE TO ATTEMPTING TO USE POWDER TO ACCOMPLISH THE SAME EFFECT HERE WITHOUT INCREASING MOISTURE AT SKIN LEVEL. PT IS ASSISTED AT LENGTH WITH REPOSITIONING AND ATTMEPTING TO OBTAIN POSITION OF COMFORT, PT IS NOTED MOST COMFORTABLE WITH TURNS IF SMALL WEDGE SUPPORT IS PLACED UNDER ABD ON SIDE PT IS TURNED TOWARD ABD IS PULLING AGAINST BACK AND HIPS WHEN UNSUPPORTED WITH TURNS. SHE HAS TOLERATED TURNS WITH 2 CEILING LIFTS WELL THIS PROVIDES MORE OF A STEADY PRESSURE WITHOUT PRESSURE POINTS AND JERKING MOVEMENTS, LIFTS ARE MOVED SLOWLY AND PLAN OF MOVEMENT IS DISCUSSED WITH PT PRIOR TO INTERVENTIONS BEING MADE. SHE HAS TOLERATED BIPAP WELL SINCE JUST AFTER 2300 THIS SHIFT, LUNGS CONTINUE WITHOUT CHANGES, SHE DOES DESATURATE TO LOW TO MID 80S WITH NASAL CANNULA AT 2 L/MIN DURING BREAKS HOWEVER RAPIDLY RETURNS TO ORDERED 88-92% SATS WITH INSTRUCTIONS TO BREATH THROUGH HER NOSE WHEN WEARING NASAL CANNULA, ALARM VOLUME INCREASED AND PT INSTRUCTED TO BREATH THROUGH NOSE WHEN ALARM SOUNDS, SHE HAS BEEN COMPLIANT WITH THIS EARLY IN THE SHIFT WHEN ON BREAKS FROM BIPAP. SHE DID COMPLAIN OF BURNING PAIN WITH BYRNE CATH, ON INSPECTION, PT BODY HABITUS DOES CATCH CATHETER TUBING AND PULL AGAINST CATHETER, BYRNE IS REPOSITIONED THROUGH LEG AND LOWER ABD FOLDS AT EACH TIME PT IS REPOSITIONED, UNABLE TO PLACE STATLOCK WITHOUT RISK OF PRESSURE RELATED SKIN BREAKDOWN. URINE WAS NOTED TO HAVE SMALL AMOUNT OF BLOOD PRESENT, LOVENOX WAS HELD AND URINE APPEARANCE IMPROVED IN TUBING THIS SHIFT. SHE HAS USED HER CALL LIGHT APPROPRIATELY TO MAKE NEEDS KNOWN, APPEARS TO HAVE SLEPT FOR APPROX 1-2 HOUR INTERVALS AFTER 0100 THIS AM.
--- NOTE | 2019-07-17 13:13 | NUR ---
REASSESSMENT PT HAS BEEN RESTING IN BED THROUGHOUT THE DAY. SHE HAS BEEN MORE COMFORTABLE TODAY THAN SHE WAS WHEN I LAST TOOK CARE OF HER. SHE REMAINS ALERT AND ORIENTED. SHE COMPLAINS OF FEELING TIRED TODAY EVEN THOUGH SHE FEELS LIKE SHE SLEPT WELL LAST NIGHT. SHE IS SIT WITH RATE IN THE LOW 100S, BP STABLE. SHE TOOK THE BIPAP OFF ABOUT 0800 AND MAINTAINED SPO2 88-92% ON 2L/NC. SHE OCCASIONALLY DIPS BELOW 88% BUT RECOVERS QUICKLY. BYRNE WITH DARK ROMEO URINE AND SMALL BLOOD CLOTS. VERIFIED WITH DR. GALLARDO BEFORE GIVING LOVENOX. ELECTROLYTES BEING REPLACED. CONTINUING TO MONITOR.
--- NOTE | 2019-07-17 17:44 | NUR ---
SHIFT SUMMARY PT HAS CONTINUED TO DO WELL WITH EXTENDED BREAKS FROM THE BIPAP TODAY. SHE WORE THE BIPAP FOR ABOUT 2 HOURS AGAIN THIS AFTERNOON BEFORE WANTING IT OFF. LUNGS REMAIN DIM. SWITCHED PT FROM HI FLOW NC TO REGULAR NC AT 4L THIS EVENING BECAUSE PT WAS COMPLAINING OF DISCOMFORT FROM THE HARDER HI FLOW PRONGS. PT REMAINS ST IN THE LOW 100S, BP STABLE. PT IS EATING TODAY AND TOOK HER METFORMIN. PT'S MOTHER BROUGHT HER IN FRUIT AND SALADS SINCE PT HAS NOT BEEN LIKING THE HOSPITAL FOOD. BYRNE URINE CONTINUES TO BE DARK ROMEO. PT REFUSED A BATH THIS AFTERNOON. NYSTATIN AND POWDER APPLIED TO PT'S FOLDS ORDERED AND THROUGHOUT THE DAY. REPOSITIONED PT SHE ALLOWED. A COUPLE TIMES SHE DID NOT WANT TO BE MOVED SINCE SHE WAS STILL COMFORTABLE. NO OTHER REQUESTS FROM PT. CONTINUING TO MONITOR.
--- NOTE | 2019-07-17 19:30 | NUR ---
ASSUMED CARE OF PT, SHE IS AWAKE AND RECLINING IN BED, SPEAKING IN FULL SENTENCES, DENIES PAIN AT THIS TIME, STATES THAT HER BREATHING FEELS IMPROVED, SATS ARE NOTED LOW 90S WITH OXYGEN AT 2.5 L/MIN VIA NASAL CANNULA, LUNGS ARE CLEAR BILAT UPPER, DIM MID TO BASES BILAT, RESP RATE HIGH TEENS TO LOW 20S, NO VISIBLE INCREASED WORK OF BREATHING IS NOTED WHILE PT IS AT REST. HRR, SINUS TACH NOTED ON MONITOR, RATE 100-110S, PRESSURES ARE STABLE AT THIS TIME, PULSES ARE FULL X 4, SKIN PWD, EDEMA CONTINUES TO IMPROVE. ABD DISTENDED, LOWER PANNUS REMAINS VERY FIRM TO PALP OTHERWISE SKN HAS SOFTENED, HYPOACTIVE BOWEL TONES ARE NOTED, PT DENIES CURRENT NAUSEA. LOWER EXTREMITY MOVEMENT IS IMPROVED FROM LAST SHIFT. BYRNE REMAINS IN PLACE DRAINING CLEAR ROMEO URINE AT THIS TIME WILL MONITOR. PT IS AGREEABLE TO WOUND/SKIN CARE THIS SHIFT.
--- NOTE | 2019-07-17 23:00 | NUR ---
WOUND/SKIN CARE STARTED AT 2145 COMPLETED AT 2300 PT IS AGREEABLE TO WOUND CARE AT THIS TIME AND SKIN CLEANSING. 3 STAFF ASSIST WELL CEILING LIFT USED TO TURN AND POSITION PT BOTH TO LEFT AND RIGHT SIDES THROUGHOUT THE HOUR, PT TOLERATED WELL. WOUND TO LEFT SIDE PANNUS FOLD IS 1 CM IN DEPTH, PT AGREEABLE TO SMALL AMOUNT OF ALGINATE PLACED TO WOUND BED AFTER SKIN CLEANSED AND PATTED DRY, NYSTATIN POWDER TO REDDENED AREA SURROUNDING WOUND, RASH IS CONSISTENT WITH YEAST. ALL SKIN FOLDS ARE WASHED AND PATTED DRY, MULTIPLE AREAS OF REDNESS CONSISTENT WITH YEAST, MOST NOTABLE AREAS ARE POSTERIOR RIGHT KNEE FOLDS AND UPPER RIGHT ABD SKIN FOLD TO RIGHT BACK, THESE AREAS ARE BRIGHT RED WITH WEEPING RASH AND SMALL AMOUNTS OF BLEEDING WITH BEING WASHED, THESE AREAS ARE WASHED, PATTED DRY, NYSTATIN POWDER APPLIED AND PILLOWCASES ARE PLACED WITH CARE TO AVOID WRINKLES, PT WILL CALL IF UNABLE TO TOLERATE.
[2019-07-18 04:43] LABS: BASOPHILS ABSOLUTE AUTO 0.03 K/mm3 (0.00-0.23); BASOPHILS PERCENT AUTO 1 % (0-2); EOSINOPHILS ABSOLUTE AUTO 0.33 K/mm3 (0.00-0.68); EOSINOPHILS PERCENT AUTO 6 % (0-6); Hematocrit 38.7 % (33.0-51.0); Hemoglobin 10.7 g/dL (11.5-16.0); IMMATURE GRAN ABSOLUTE AUTO 0.04 K/mm3 (0.00-0.10); IMMATURE GRAN PERCENT AUTO 1 % (0-1); LYMPHOCYTES ABSOLUTE AUTO 0.78 K/mm3 (0.84-5.20); LYMPHOCYTES PERCENT AUTO 13 % (21-46); MONOCYTES ABSOLUTE AUTO 0.44 K/mm3 (0.16-1.47); MONOCYTES PERCENT AUTO 7 % (4-13); Mean Corpuscular HGB 24.3 pg (26.0-34.0); Mean Corpuscular HGB Conc 27.6 g/dL (31.5-36.5); Mean Corpuscular Volume 88 fL (80-100); Mean Platelet Volume 12.5 fL (9.1-12.4); NEUTROPHILS ABSOLUTE AUTO 4.38 K/mm3 (1.96-9.15); NEUTROPHILS PERCENT AUTO 73 % (41-73); Platelet Count 131 K/mm3 (150-400); RDW Coefficient Variation 18.4 % (11.7-14.2); RDW Standard Deviation 58.3 fL (35.1-46.3)
[2019-07-18 05:01] LABS: Anion Gap 2 mmol/L (6-16); Blood Urea Nitrogen 12 mg/dL (8-24); CO2, Blood 42 mmol/L (21-32); Calcium, Blood 8.8 mg/dL (8.5-10.1); Chloride, Blood 96 mmol/L (98-108); Creatinine, Blood 0.63 mg/dL (0.40-1.00); Glomerular Filtration Rate >60 (60-); Glucose, Blood 138 mg/dL (70-99); Magnesium, Blood 1.4 mg/dL (1.6-2.4); Phosphorus, Blood 2.8 mg/dL (2.5-4.9); Potassium, Blood 3.8 mmol/L (3.5-5.5); Sodium, Blood 140 mmol/L (136-145)
--- NOTE | 2019-07-18 07:03 | NUR ---
PT IS FREQUENTLY TEARFUL THIS SHIFT, EXPRESSES FRUSTRATION WITH CONTINUED FEELING OF WEAKNESS COMPARED TO HER BASELINE, EXPRESSES FRUSTRATION WITH INABILITY TO MOVE ENOUGH TO REPOSITION HERSELF IN BED INDEPENDENTLY, FREQUENT ASSISTANCE WITH TURNS AND REPOSITIONING IS REQUIRED SECONDARY TO ABD/PANNUS WEIGHT CAUSING HER LEGS TO REPORTEDLY FALL ASLEEP. SHE HAS ALLOWED SKIN CARE AND WOUND CARE THIS SHIFT, SHE TOLERATED BIPAP FROM NEAR 0100 UNTIL 0700 THIS AM, LUNGS REMAIN CLEAR WITH DIM MID TO BASES BILAT, SATS ARE MAINTAINED LOW 90S WITH OCCASIONAL UPPER 80S PER ORDERS FROM DR GALLARDO. SHE HAS ASSISTED WITH TURNS AND REPOSITIONING WELL. SKIN FOLDS TO RIGHT SIDE HAVE INCREASED MOISTURE/SHEARING/RASH BREAKDOWN, PT HAS TOLERATED SKIN AND WOUND CARE, SHE HAS BEEN AGREEABLE TO NYSTATIN USE WELL LOOSLY PLACED DRYFLOWS TO ABSORB MOISTURE, SHE DOES WELL REQUESTING THESE BE CHANGED THROUGHOUT SHIFT. BYRNE CATH CONTINUES IN PLACE DRAINING CLEAR ROMEO URINE TO GRAVITY, TUBING HAS BEEN REPOSITIONED THROUGH PANNUS AND UPPER THIGH SKIN FOLDS WITH EACH POSITION CHANGE IN ORDER TO PREVENT SKIN BREAKDOWN RELATED TO CATHETER TUBING.
--- NOTE | 2019-07-18 07:15 | NUR ---
AM ASSESSMENT: PT IS ALERT AND ORIENTED. PLEASANT AND COOPERATIVE WITH CARE. PT HAS SOMEWHAT FLAT AFFECT AND TEARFUL AT TIMES T/O AM. PT REPORTS HEADACHE PAIN THIS AM. WILL MEDICATE PER ORDERS. LUNGS ARE CLEAR BUT DIMINISHED IN THE BILATERAL BASES/RML. SP02 88-92% ON 3L 02 VIA AT REST. PT DOES DESAT TO 84-86% RANGE WITH EXERTIONS/HEAD FLAT. HR REGULAR- ST-LOW 100'S RANGE. PT WITH GENERALIZED EDEMA TO LE'S/FLANK/UE'S AND LYMPHODEMA (PER PT) TO RT BREAST/UA. POWERGLIDE IN PLACE TO LT UA WITH MAGNESIUM RIDER INFUSING AT THIS TIME.
--- NOTE | 2019-07-18 07:15 | NUR ---
REC'D BEDSIDE REPORT FROM BETO CASTANEDA AND AM NOW ASSUMING CARE OF THIS PT.
--- NOTE | 2019-07-18 08:41 | NUR ---
CALLED [employer] TO INQUIRE ABOUT PT OBTAINING MENU, SHE HAS NOT BEEN REC'ING ONE AND REQUESTED FOOD PER PT REQUEST.
--- NOTE | 2019-07-18 08:57 | NUR ---
DR OROURKE IN TO ASSESS PT. SEE NEW ORDERS. DISCUSSED SP02 LEVELS, DIURESIS, AND PT NEEDING OP SLEEP STUDY AND PT NEEDING TO GO HOME WITH BIPAP.
--- NOTE | 2019-07-18 15:19 | NUR ---
Spiritual care note: Luana is in much better spirits than she was last week, She engages well and appeared to enjoy companionship/prayer. She spoke at length about her two adoptive children. She is very proud of them and seems to be a very good mom. I supported and affirmed her beliefs, complimented her on her strength, and provided gentle direct care counselor. No concerns presented other than wanting to go home. I will remain available.
[2019-07-18 16:07] LABS: Base Excess Venous 20.6 mmol/L; Bicarbonate Venous 41.7 mmol/L (24.0-30.0); PO2 Venous 158 mmHg (38-42); pH Blood Venous 7.43 (7.34-7.37)
--- NOTE | 2019-07-18 19:00 | NUR ---
SHIFT SUMMARY: PT REMAINS ALERT AND ORIENTED TO SELF/PLACE/SITUATION. PT IS ABLE TO FOLLOW COMMANDS BUT IS VERY PHYSICALLY LIMITED R/T OBESITY/DECONDITIONED STATE. PT WAS ABLE TO SIT AT THE BEDSIDE WITH THE HELP OF 3 STAFF MEMBERS AND LIFT WAS NEEDED TO GET THE PT BACK INTO A LYING POSITION. LUNGS SOUNDS REMAIN DISTANT/CLEAR/AND DIMINISHED IN THE BILATERAL BASES. SP02 SATS 89-92% ON 2-3L 02 VIA N/C. PT DESATS WHEN LAYING SUPINE W/HOB TO THE 82-84% RANGE AND TEMPORARILY NEEDS TO BE INCREASED TO 4-6L 02. POWERGLIDE TO LINNETTE WITH NS TKO. BYRNE CATH WITH LARGE AMTS OF ROMEO COLORED URINE TO GRAVITY. PT CONTINUES TO HAVE A POOR APPETITE AND WAS UPSET THAT OUTSIDE FOOD WAS NOT BEING ALLOWED IN. PT REPORTS HAVING SOME NAUSEA AFTER EACH MEAL. -PCU STATUS -FULL CODE -CBG'S AC/HS.
--- NOTE | 2019-07-18 19:36 | NUR ---
REPORTED OFF TO BETO PATEL WHOM IS ASSUMING CARE OF THIS PT.
--- NOTE | 2019-07-18 21:34 | NUR ---
ASSUMED CARE NOTE: ASSUMED CARE OF PT AT 1900, RECEVIED REPORT FROM LATONIA PÉREZ. PT IS A/OX4. PT IS ON 3L OF 02 VIA NC, WITH SPO2 OF 94% PT STATES SHE IS UNABLE TO LAY FLAT DUE TO THE INABILITY TO BREATH IN THAT POSITION. PT C/O LEFT KNEE PAIN, PT REFUSES TO TAKE ANY PAIN MEDS AT THIS TIME. PT DENIES NAUSEA/VOMITING AT THIS TIME. NYSTATIN CREAM AND POWDER APPLIED TO AFFECTED AREAS. BYRNE DRAINING ROMEO COLORED URINE, SEDIMENT NOTED. BED ST LOWEST LEVEL, CALL LIGHT WITHIN REACH.
[2019-07-19 04:16] LABS: Anion Gap 4 mmol/L (6-16); Blood Urea Nitrogen 12 mg/dL (8-24); Bun/Creatinine Ratio 17.9 (12.0-20.0); CO2, Blood 42 mmol/L (21-32); Calcium, Blood 8.9 mg/dL (8.5-10.1); Chloride, Blood 94 mmol/L (98-108); Creatinine, Blood 0.67 mg/dL (0.40-1.00); Glomerular Filtration Rate >60 (60-); Glucose, Blood 124 mg/dL (70-99); Potassium, Blood 3.5 mmol/L (3.5-5.5); Sodium, Blood 140 mmol/L (136-145)
--- NOTE | 2019-07-19 06:12 | NUR ---
SHIFT SUMMARY: NO SIGNIFICANT CHANGES DURING SHIFT. PT CONTINUES TO DESATURATE WHEN LAID FLAT, OR WITH ACTIVITY. PT HAS REQUIRED 3-4L OF O2 VIA HIGH-FLOW NC, FOR EXERTION. PT HAS C/O LEG PAIN, HOWEVER REFUSES TO TAKE PAIN MEDICATIONS. PT HAS BEEN REPOSITION Q2H, USING LIFT. PILLOWS HAVE BEEN USED TO SUPPORT FEET AND HANDS. PT HAD A SMALL SOFT BM THIS SHIFT. BYRNE PATENT AND DRAINING ORANGE COLORED URINE WITH SEDIMENT NOTED. PT USED BIPAP DURING A 4 HOUR PERIOD OF SLEEP. VITALS STABLE, WILL CONTINUE TO MONITOR PT UNTIL REPORT IS GIVEN TO ONCOMING SHIFT/
--- NOTE | 2019-07-19 08:00 | NUR ---
PT A&O X3-REPORTS 08/30 HEADACHE. MED WITH IBUPROFEN PER PT REQUEST. PT IS BED BOUND DUE TO MORBID OBESITY. SHE IS USING HER UPPER BODY TO ASSIST WITH TURNING AND APPEARS STRONGER THAN PREVIOUS ASSESSMENTS. ECG SHOWS ST WITH RATE 100-110'S. BP WDL FOR PT. LUNGS DIMINISHED VS. DISTANT TO BASES-SATS>90% ON 3 LITERS NASAL CANULA. RESPIRATIONS ARE SHALLOW-SOB WITH EXERTION. PT DOES NOT TOLERATE LYING FLAT, NOR BEING TURNED COMPLETELY TO ONE SIDE OR THE OTHER. BYRNE WITH MODERATE AMOUNT OF DARK, YELLOW URINE TO UROMETER. EDEMA IMPROVING. MED WITH LASIX 40 MG IVP PER SCHEDULED DOSE-SEE EMAR.
--- NOTE | 2019-07-19 09:15 | NUR ---
PT SAT AT THE BEDSIDE FOR APROXIMATELY 5 MINUTES. SHE GRABBED ONTO THE LIFT AND IS BEARING SOME WEIGHT. HOWEVER, IT REQUIRES 3 PEOPLE AND THE LIFT TO GET HER TO THE SIDE OF THE BED AND BACK. PT HAS TO BE REMINDED TO TAKE DEEP BREATHES WHEN MOVING. SHE ALSO APPEARS FEARFUL OF FALLING. INTERMITTENTLY TEARFUL, BUT OVERALL TOLERATED WELL.
--- NOTE | 2019-07-19 13:00 | NUR ---
EXTENSIVE BATHING AND WOUND CARE COMPLETED. PT ASSISTED SOMEWHAT WITH TURNING IN BED. PT REPORTS BURNING FROM BYRNE CATH. BECAUSE OF THE WEIGHT OF HER PANNUS AND THE LACK OF SPACE BETWEEN HER THIGHS FOR THE CATH TUBING, THE BYRNE TUBING WAS KINKED. NOTED SOME BLOOD CLOTS AND SEDIMENT. CATH CARE DONE AND BYRNE FLUSHED. THERE WAS BROWN LIQUID STOOL IN THE FOLDS OF THE LABIA AND SCATTERED THROUGH OUT THE DENISHA AREA. WOUNDS CARE DONE TO WOUND UNDER THE LEFT SIDE OF THE PANNUS. THE SURROUNDING SKIN IS PINK-MODERATED AMOUNT OF SERO/SANG. DRAINAGE-PACKED WITH ALGINATE AND COVERED WITH BOTH AN ALGINATE SQUARE AND ABD PAD. DISCUSSED LONG TURN PLAN OF CARE WITH PT. PT ASKING APPROPRIATE QUESTIONS AND SEEMS TO AGREE WITH THE CURRENT PLAN OF CARE.
--- NOTE | 2019-07-19 13:48 | NUR ---
Review of pt with chaplian Brando. Plan if or allan to evaluate her needs and stressors so we can assist in facilitating a terminal gauger plan for her. Goal is advanced care plan ond to review CPR and recusitation and future care needs.
--- NOTE | 2019-07-19 16:05 | NUR ---
PT CONTINUES TO REPORT HEADACHE-DESPITE MED WITH IBUPROFEN. PT STATES THAT SHE TAKES 800 MG OF IBUPROFEN AT HOME AND REQUESTS THAT I SPEAK WITH THE HOSPITALIST TO GET THE DOSE INCREASED. SPOKE WITH DR. BAH-HE GAVE ORDER FROM ONE TIME DOSE OF ADDITIONAL 400 MG IBUPROFEN PO NOW, BUT FUTURE DOSES TO REMAIN AT 400MG TID PRN.
--- NOTE | 2019-07-19 16:20 | NUR ---
Routine spiritual care visit: Luana was in good spirits today and spoke at length about her children and animals at home. She says, for the most part, she is happy in her life. She is hopeful to qualify for bariatric surgery and tells me she is wiling to do the work required to get there. She would like palliative care RN to follow up with additional medical support and direction. Informed Reyna Mccall, palliative care RN, of pt request. I will remain available.
--- NOTE | 2019-07-19 16:41 | NUR ---
A few attetmpts to meet with patient. she is resting will return
--- NOTE | 2019-07-19 17:30 | NUR ---
PT SLEPT FOR APROXIMATELY 30 MINUTES-SHE AWAKENED TEARFUL-STATES "I'M SO TIRED AND UNCOMFORTABLE AND I WANT TO GO HOME!" PT COMPLAINING THAT HER LINNETTE EXTENDED DWELL CATHETER IS "HURTING" DESPITE DRESSING CHANGE. NEW PIV TO RIGHT FOREARM INITIATED AND EXTENDED DWELL IV DC'D. PT STATES THAT "CATHETER IS HURTING." WITH 3 STAFF MEMBERS, REPOSITIONED PT AND REPOSITIONED BYRNE WELL. IRRIGATED BYRNE WITH 45 CC STERILE WATER URINE IS DARK, ROMEO WITH SOME SEDIMENT. ONCE IRRIGATED, URINE CLEAR, NO SEDIMENT AND DID GET ALL 45 CC OF STERILE WATER BACK. PT MED WITH IBUPROFEN 400 MG PO X 1 ADDITIONAL DOSE FOR H/A AND GENERAL PAIN.
--- NOTE | 2019-07-19 19:20 | NUR ---
ASSUME CARE: REPORT RECIEVED FROM SHADE OFF GOING RN. MONITOR INTACT SHOWING SINUS TACH HEART RATE 100'S. LUNG SOUNDS DISTANT AND DECREASED SPO2 87-[address] FREQUENT REMINDERS TO TAKE DEEP BREATHES SPO2 RECOVERS FOLLOWS REQUESTS. ABDOMEN SOFT WITH BOWEL SOUNDS HYPOACTIVES. LOPEZ PATENT WITH DARK ROMOE URINE WITH SEDIMENT. C/O 'lopez hurting" REPOSITIONED WITH CEILING LIFT AND LOPEZ REPOSITIONED. ASSISTS WITH REPOSITIONING. NYSTATIN APPLIED TO WOUNDS UNDER PANNIS, BACK , AND BEHIND KNEE. SPEAKING ON PHONE WITH FAMILY TEARFUL AT TIMES "I JUST WANT TO GO HOME" "IT'S BEEN 12 DAYS" REASSURANCE AND SUPPORT GIVEN. REMINDED THAT SHE WAS SLOWLY GETTING BETTER THAN SEVERAL DAYS AGO. CONTINUE TO MONITOR AND REPORT CHANGE IN PATIENT CONDITION.
--- NOTE | 2019-07-20 05:43 | NUR ---
SHIFT SUMMARY: RESTED FOR SHORT INTERVALS DURING NOC. SLEPT WHEN ON BIPAP. MONITOR INTACT SHOWING SINUS TACH HEART RATE 100'S LUNG SOUNDS DISTANT RESPIRATIONS REGULAR AND EASY WITH O2 IN PLACE AT 3L/MIN. 90-95%BYRNE PATENT DRAINING DARK ROMEO/CRANBERRY URINE WITH SEDIMENT. WOUNDS TO POSTERIOR L KNEE, FOLDS UNDER PANNIIUS, GROIN, BACK , R BREAST, NYSTATUN APPLIED SEE WOUND ASSESSMENT.ASSISTS WITH REPOSITIONING. ANXIOUS /EMOTIONAL AT TIMES TEARFUL STATING "I WANT TO GO HOME" EMOTIONAL SUPPORT OFFERED. CONTINUE TO MONITOR AND REPORT CHANGE IN PATIENT CONDITION
--- NOTE | 2019-07-20 08:30 | NUR ---
ASSUMED CARE / DR BAH: REPORT RECEIVED FROM GUALBERTO Flores RN. ASSUMED CARE OF THIS PT AT APPROX 0700. ON ASSESSMENT, THE PT IS AWAKE, A&O. SHE IS PLEASANT & COOPERATIVE W/ CARE. MOTIVATED TO GO HOME & WORK W/ PHYS & OCCUPATIONAL THERAPIES. LS DIM T/O, PT ON 4L HI-FLOW NC W/ DESATS TO MID 80s WHEN SLEEPING SOUNDLY, OTHERWISE O2 SATS 98-100%. MONITOR SHOWS SR W/ HR 90s, BP STABLE. PT HAS NO GI COMPLAINTS OTHER THAN POOR APPETITE. BYRNE PATENT/ DRAINING, PT DIURESING PER ORDERS. SKIN CONDITION CHARTED IN ASSESSMENT, Q2H TURNS & NYSTATIN ORDERED PER EMAR. PROVIDER AT BEDSIDE TO EVAL PT. HE STS NO CHANGES AT THIS TIME. WILL CONTINUE TO MONITOR & UPDATE NEEDED.
--- NOTE | 2019-07-20 11:38 | NUR ---
UPDATE: CALL TO PROVIDER TO NOTIFY HIM THAT PT's UTI IS RESISTANT TO NITROFURANTOIN BASED ON CX RESULTS. OPTIONS FOR ABX TX ARE LIMITED R/T PT's EXTENSIVE ALLERGY LIST. PER PROVIDER REQUEST, THIS RN HAS ASKED THE PT WHAT HER REACTION WAS TO BOTH PCN & CEPHALOSPORINS, SHE STS THAT SHE WAS A CHILD & DOES NOT REMEMBER THE REACTION THAT SHE HAD TO EITHER OF THESE MEDICATIONS, BUT THAT HER MOTHER WOULD KNOW. PROVIDER HAS ASKED THAT THIS RN CALL THE PT's MOTHER, SUNITHA, FOR CLARIFICATION. CALL TO SUNITHA, SHE STS THE PT HAD EXTENSIVE HIVES R/T PCN USE A CHILD, BUT SHE DOES NOT REMEMBER A REACTION TO CEPHALOSPORINS. RETURN CALL TO PROVIDER TO NOTIFY HIM OF THE ABOVE INFORMATION. IT ALSO APPEARS THAT A UA WAS NOT COMPLETED ON INITIAL CATHETER PLACEMENT BY ED RN, SO THERE IS NO WAY TO NOTE IF THE PT WAS COLONIZED W/ ABOVE NOTED BACTERIA PRIOR TO INITIAL BYRNE PLACEMENT. DR BAH WOULD LIKE TO HOLD OFF ON ABX UNLESS PT BECOMES SYMPTOMATIC OF UTI. PRIOR ABX D/C'd. DOXYCYCLINE CONTINUED FOR CELLULITIS.
--- NOTE | 2019-07-20 17:17 | NUR ---
PT TRANSFERED TO MEDICAL FLOOR VIA WHEELCHAIR IN STABLE CONDITION. FULL AND COMPLETE REPORT GIVEN TO MEDICAL FLOOR RN.
--- NOTE | 2019-07-20 18:22 | NUR ---
SHIFT SUMMARY: NO ACUTE CHANGES SINCE PRIOR UPDATES. PT REMAINS A&O, PLEASANT & COOPERATIVE. SHE HAS WORKED W/ PHYSICAL & OCCUPATIONAL THERAPIES THIS AFTERNOON & TOLERATED SITTING IN THE CHAIR FOR APPROX 1.5 HRS. LS ARE CLEAR T/O, PT ON RA W/ O2 SATS > 92%. MONITOR SHOWS SR-ST W/ HR 90-100s, OCCASIONAL PVCs, HTN W/ MEDS PER EMAR. RECTAL TUBE IS PATENT/ DRAINING BROWN LIQUID STLS. BYRNE PATENT/ DRAINING. SKIN CONDITION UNCHANGED. WILL CONTINUE TO MONITOR & REPORT OFF TO ONCOMING RN.
--- NOTE | 2019-07-20 18:33 | NUR ---
SHIFT SUMMARY: NO ACUTE CHANGES SINCE PRIOR UPDATES. PT REMAINS A&O, PLEASANT & COOPERATIVE. SHE HAS WORKED W/ PHYSICAL & OCCUPATIONAL THERAPIES THIS AFTERNOON & HAS TOLERATED SITTING UP IN THE CHAIR FOR APPROX 1.5 HRS. LS ARE DIM T/O, PT ON 4L HI-FLOW NC W/ O2 SATS > 92% ON AVG, OCCASIONAL DESATS TO 85% WHEN SLEEPING. MONITOR SHOWS SR-ST W/ HR 90-100s, BP STABLE. PT HAS NO GI COMPLAINTS, BYRNE IS PATENT/ DRAINING DARK YELLOW-ROMEO URINE. SKIN CONDITION IS OVERALL UNCHANGED. ALL DRESSINGS HAVE BEEN CHANGED W/ BATH THIS EVENING & ALL SKIN FOLDS HAVE BEEN CLEANSED THOROUGHLY, W/ NYSTATIN POWDER & CREAM APPLIED. WILL CONTINUE TO MONITOR & REPORT OFF TO ONCOMING RN.
--- NOTE | 2019-07-20 22:16 | NUR ---
ASSUMPTION OF CARE ASSUMED CARE OF PT @ 1900, PT AWAKE IN BED, ORIENTED TO SELF, EVENT, LOCATION AND FOLLOWING DIRECTIONS, REPORTS 7/10 GENERAL BODY PAIN, TRAMADOL PROVIDED WITH GOOD RELEIF. 02 SATURATIONS MAINTAINED> 88% ON HUMIDIFIED O2 TITRATED 2-4L NEEDED, PT QUICKLY DESATS WITH ACTIVITY/EXERTION. MONITOR SHOWS SINUS RHYTHM, HR 90'S-110, BP STABLE. PT WITH GOOD PO INTAKE, BYRNE IN PLACE DRAINING DARK YELLOW URINE. SKIN CARE PROVIDED T/O TO SKIN FOLDS AND WOUNDS (SEE SKIN ASSESSMENT) INCREASED REDNESS AND SWELLING NOTED TO R SIDE OF BODY. CALL LIGHT WITHIN REACH.
--- NOTE | 2019-07-21 01:00 | NUR ---
PT PLACED ON BIPAP FOR SLEEPING
--- NOTE | 2019-07-21 03:00 | NUR ---
BIPAP REMOVED PER PT REQUEST
--- NOTE | 2019-07-21 06:34 | NUR ---
SHIFT SUMMARY NO ACUTE CHANGES THIS SHIFT, PT RESTED FOR SHORT PERIODS THIS SHIFT, TOLERATED BIPAP FOR APPROX 2 HOURS OVERNIGHT, OTHERWISE ON 4L PER NC TO MAINTAIN O2 SATURATIONS>88%. MONITOR SHOWS SINUS RHYTHM, HR 90'S-105, BP STABLE. BYRNE REMAINS IN PLACE DRAINING DARK YELLOW TO ORANGE URINE. PT WITH DIFFICULTY GETTING IN COMFORTABLE POSITION, CEILING LIFT x2 FOR TURNS, PT ABLE ASSIST MINIMALLY WITH TURNS AND REPOSITIONING IN BED. CALL LIGHT WITHIN REACH, PT USES APPROPRIATELY.
--- NOTE | 2019-07-21 08:30 | NUR ---
[facility] of Care: Care assumed at 0700hr. Patient alert and oriented x4, sitting upright in talking on phone. Denies pain discomfort, SOB, or dyspnea. SpO2-92-94% on 3-4L/NC, VSS. Ate 75% on breakfast without difficulty, tolerating PO fluids and pills whole. Peripheral IV x1 patent and intact. Wilson cath patent and intact, draining dark yellow urine. Call light in reach, makes needs known. Will continue to monitor.
[2019-07-21 10:27] LABS: Anion Gap 6 mmol/L (6-16); Blood Urea Nitrogen 11 mg/dL (8-24); Bun/Creatinine Ratio 16.3 (12.0-20.0); CO2, Blood 40 mmol/L (21-32); Calcium, Blood 8.7 mg/dL (8.5-10.1); Chloride, Blood 93 mmol/L (98-108); Creatinine, Blood 0.68 mg/dL (0.40-1.00); Glomerular Filtration Rate >60 (60-); Glucose, Blood 151 mg/dL (70-99); Potassium, Blood 3.7 mmol/L (3.5-5.5); Sodium, Blood 139 mmol/L (136-145)
--- NOTE | 2019-07-21 17:55 | NUR ---
Shift Summary: No significant changes throughout shift. VSS, continues to deny pain, discomfort, SOB, or dyspnea throughout shift. On BiPAP for apprx 1-1/2hr mdi day for a nap, otherwise on 2-3L/NC throughout day, spO2-92-97%. Bedbath complete with skin care to multiple skin folds (rash/escoriation), and patient transferred via lift to chair. Patient then worked with PT/OT while in chair and request to go back to bed. Wilson cath remains patent and intact, draining clear, dark yellow urine. Good apatite for breakfast and dinner, but only ate 25% of lunch. Call light in reach, makes needs known. Will continue to monitor until report to NOC shift RN.
--- NOTE | 2019-07-21 19:00 | NUR ---
ASSUMED CARE ASSUMED CARE OF PATIENT. AWAKE AND ALERT. LABILE EMOTIONS WITH SWINGS FROM ANXIOUS TO HAPPY TO ANGRY TO CRYING. COOPERATIVE WITH CARE. C/O GENERALIZED PAIN. PREVIOUSLY MEDICATED WITH PO PAIN MED WITH ONLY SLIGHT RELIEF. REMAINS ON 2L NC. RESPIRATIONS EVEN AND UNLABORED AT REST. SOB NOTED WITH EXERTION. MONITOR SHOWS ST, RATE 100-110. BYRNE PATENT AND DRAINING DARK YELLOW-ORANGE URINE. PT IS ON A BARIATRIC BED. MULTIPLE SKIN ISSUES NOTED. SEE SHIFT ASSESSMENT FOR FULL ASSESSMENT.
--- NOTE | 2019-07-22 06:13 | NUR ---
SHIFT SUMMARY NO ACUTE CHANGES DURING NOC. SLEPT OCCASIONALLY. CONTINUES WITH LABILE EMOTIONS. O2 SATS STABLE. ON BIPAP 20/12, BUR 12, FIO2 40% WHEN ASLEEP AND 2L NC WHEN AWAKE. VSS. MONITOR SHOWS NSR-ST, RATE 90-100s. TMAX 99.1F. BYRNE PATENT AND DRAINING YELLOWISH-ORANGE URINE, 1950CC TOTAL. TOLERATING DIET WITHOUT ISSUES. SKIN ISSUES UNCHANGED. REPOSITIONED USING CEILING LIFT AND 2-3 PEOPLE. MEDICATED WITH ULTRAM PO X 1 FOR GENERAL PAIN WITH SOME RELIEF. WILL REPORT TO DAY SHIFT RN WHEN AVAILABLE.
--- NOTE | 2019-07-22 11:05 | NUR ---
ASSUMED CARE OF PT AT 0700. REPORT FROM KO PÉREZ. PT RESTING IN BED. A&OX 4. FOLLOWS DIRECTIONS. PT C/O GENERALIZED BODY ACHES. DENIES NEED FOR MEDS AT THIS TIME. PT MORBIDLY OBESE. ONLY ABLE TO DO SMALL POSITION CHANGED. LUNGS DIMINISHED THROUGHOUT. PT P/W/D. 2L O2 VIA NC. PT O2 SATS DECREASED c EXERTION. PT c MULTIPLE AREAS OF REDNESS IN SKIN FOLDS. BED BATH COMPLETE. NYSTATIN PLACED IN FOLDS. BYRNE PATENT, DRAINING ROMEO URINE TO GRAVITY. PT MOTIVATED TO COMPLETE PHYSICAL THERAPY AND INCREASE STRENGTH SO SHE CAN BE DISCHARGED. UP TO CHAIR. WILL CONTINUE TO MONITOR.
--- NOTE | 2019-07-22 13:42 | NUR ---
Met with Luana this morning in the ICU. Nursing reports she is motivated today to participate in her care. Luana was sitting up in the chair when I visited with her today. She tells this copywriter that she is down to 650 lbs and that she can visibly see that her left side of her stomach is smaller. She states she is unable to go home as she requires more care than her mother who is 70 and her two children 9 amd 13 years old can assist with. She reports her mother is a RN who still works 3-4 days a week and uses a walker to get around. Luana states that last summer she decided to pursue a consultation with a bariatric surgeon. She reports that she has always struggled with her weight and she normally always weighed around 450 pounds. She states she gained quite a bit of weight over the last year or so. Her PCP obtained a referral for her for a bariatric surgeon in [place]. She had the initial phone call with that office during this hospital stay. She reports that the bariatric surgeon's staff told her to focus on getting stronger now and to call them back to continue to process of possible weight loss surgery once she was feeling better. She reports that she knows she is unable to have the surgery until she is under 500 pounds. Luana has questions about discharge planning. She states that she is unsure of where she will go at discharge. Will speak with CM and see where the discharge process is at this time and let Luana know.
--- NOTE | 2019-07-22 14:10 | NUR ---
Spoke with LUNA Osorio and updated Luana on the current search for a facility that would be able to take her. Encouraged Luana to continue with increasing her activity and working with therapies to get stronger.
--- NOTE | 2019-07-22 16:49 | NUR ---
SHIFT SUMMARY PT ASSESSMENT REMAINS UNCHANGED THIS SHIFT. PT WORKED c PT/OT. MOTIVATED TO INCREASE STRENGTH FOR D/C. UPDATED PT ON LACK OF REHAB FACILITIES SUITABLE FOR HER. PT UP TO CHAIR FOR APPROX 4 HOURS THIS SHIFT. ENCOURAGED TO PERFORM EXERCISES PROVIDED BY PT. BEDBATH COMPLETE. STARTED COMBING PT'S HAIR. LARGE MAT IN MOST OF HAIR. COMBED FOR TWO HOURS. VSS. WILL CONTINUE TO MONITOR UNTIL REPORT TO ONCOMING NURSE.
--- NOTE | 2019-07-22 19:37 | NUR ---
RECEIVED REPORT FROM BETO CLARK. PATIENT LAYING ON BACK SEMI-BENTON WATCHING TV/RESTING COMFORTABLY. DENIES NO ISSUES OR CONCERNS. FLAT AFFECT NOTED. WILL CONTINUE TO MONITOR AND TX PRN.
--- NOTE | 2019-07-22 21:00 | NUR ---
PATIENT REQUESTING FOR TYLENOL DUE TO GENERALIZED BODY ACHES THAT HAS BEEN CHRONIC PER PATIENT, MEDICATION GIVEN. VSS. RESPIRATORY STATUS WNL'S, BYRNE DARK ROMEO COLOR NOTED BUT PATIENT. WILL GIVEN LASIX PER ORDERS. WILL TX SKIN CARE WITH NYSTATIN. MONITOR FOR ANY OTHER CHANGES AND TX PRN.
--- NOTE | 2019-07-22 22:00 | NUR ---
AFTER DENISHA CARE/SKIN CARE COMPLETE, PATIENT EMOTIONAL/CRYING. CONTINUE TO MONITOR.
--- NOTE | 2019-07-22 22:38 | NUR ---
PATIENT TALKING ON PHONE WITH MOTHER, SEEMS TO BE IN A BETTER MOOD. TYLENOL DIDN'T TAKE ACHES COMPLETELY AWAY BUT PATIENT SAYS "IM OK". CONTINUE TO MONITOR.
--- NOTE | 2019-07-22 23:25 | NUR ---
PATIENT REQUESTING FOR HOT TEA, APPLES/PEANUT BUTTER AND STRING CHEESE.
--- NOTE | 2019-07-23 00:26 | NUR ---
TOLERATED PO INTAKE. REPOSITIONED. REQUESTING RT TO PLACE BIPAP.
--- NOTE | 2019-07-23 02:09 | NUR ---
PATIENT REMOVED BIPAP MASK AND PLACED / ON. REQUESTING FOR PAIN MED, ULTRAM, MED GIVEN. REPOSITIONED LEGS FOR COMFORT. CONTINUE TO TX PRN.
--- NOTE | 2019-07-23 05:21 | NUR ---
SHIFT SUMMARY PATIENT VSS. USED BIPAP INTERMITTENTLY T/O SHIFT; TOLERATED WELL. 02 2L/NC WHEN OFF. DENIES SOB. SOB NOTED WITH EXERTION. PSYCH SOCIAL IMPROVED, IN GOOD SPIRITS. C/O GENERALIZED ACHE AND BILATERAL LE'S PAIN. TYLENOL AND ULTRAM GIVEN PER ORDERS WITH MINIMAL RESULTS BUT TOLERABLE PER PATIENT; REPOSITON HELPS. NO OTHER CHANGES NOTED, WILL REPORT OFF TO DAY SHIFT.
--- NOTE | 2019-07-23 08:53 | NUR ---
ASSUMED CARE OF PT AT 0700. REPORT FROM KATHY PÉREZ. PT WAKES c VERBAL STIMULI. REPORTS POOR SLEEP LAST NOC D/T GENERALIZED PAIN. MEDICATED c ULTRAM ORDERED. PT SPEAKING IN FULL SENTANCES. LUNGS DIMINISHED IN BASES. PT P/W/D. O2 AT 2L VIA NC. PT MORBIDLY OBESE c MULTIPLE SKIN ISSUES, SEE ASSESSMENT. WEIGHT TRENDING DOWN, CONTINUING TO DIURESIS. DR WELCH ROUNDED THIS AM, PT REQUESTING BACTRIM BID, STATES THIS IS HOME DOSE TO PREVENT CELLULITIS. VSS. WILL CONTINUE TO ENCOURAGE OTB TO CHAIR AND PT.
--- NOTE | 2019-07-23 16:59 | NUR ---
SHIFT SUMMARY PT REPORTS BEING TIRED MOST OF DAY, SLEEP INTERMITTANTLY DURING THIS SHIFT. WORE BIPAP FOR APPROX 1 HOUR. PT UP TO CHAIR DURING AFTERNOON, CURRENTLY IN CHAIR. DURING BEDBATH PT REQUESTED THAT I TAKE PICTURES OF HER WOUNDS ON HER PHONE. TOLD PT THAT I COULD UPDATE PHOTOS IN HER CHART AND SHOW HER THOSE PICTURES, PT BECAME TEARFUL, REFUSING PHOTOS, STATES SHE NEVER WANTED ORIGINAL PHOTOS. EXPLAINED THAT PHOTOS IN HER CHART ARE HELPFUL TO MONITOR WOUND HEALING. PT BECAME FLAT, TEARFUL AND STOPPED RESPONDING TO QUESTIONS. PT HAD LARGE BM TODAY. URINE INCREASINGLY RED/ORANGE c SMALL CLOTS. DISCUSSED CATH REMOVAL c PT AND DR WELCH. D/T HX OF URINARY RETENTION THIS ADMISSION WILL CONSIDER BLADDER TRAINING PRIOR TO REMOVAL OF CATH. STATUS CHANGED TO MEDICAL s TELE THIS SHIFT. WILL CONTINUE TO MONITOR UNTIL REPORT TO ONCOMING NURSE.
--- NOTE | 2019-07-23 20:00 | NUR ---
ASSUMED CARE OF PT AT 1915. REPORT RECEIVED. PT PRESENTS IN BED. ALERT AND ORIENTED. PLEASANT AND SOMEWHAT COOPERATIVE WITH CARE AND ASSESSMENT. PT TEACHING DONE ON PLAN OF CARE FOR TURNS, AND MEDICATIONS FOR THE NIGHT. PT STATES THAT SHE DOES NOT WANT TO BE TURNED OFTEN AND STATES THAT SHE WILL CALL IF SHE WANTS TO BE MOVED. INSTRUCTED PT ON THE IMPROTANCE OF TURNS TO PROTECT SKIN INTEGRERITY. PT RELUCTANTLY AGREES TO BE TURNED SOME. WILL REVIEW CHART AND PLAN OF CARE FOR THIS PT.
--- NOTE | 2019-07-24 06:47 | NUR ---
PT HAS RELUCTANTLY ALLOWED FOR TURNS IN BED. STATES THAT SHE IS ABLE TO TURN HERSELF IN BED. HAVE NOT OBSERVED HER TURNING HERSELF. HAVE DONE TEACHING ON IMPORTANCE OF MOBILITY IN BED TO PREVENT SKIN WOUNDS. PT MAINTAINS ON 2 L/M OXYGEN WHEN AWAKE. WHEN SLEEPING NEEDS INCREASE TO 4-5 LITERS PER MINUTE. PT CONTINUES WITH AMBURE COLORED URINE WITH SOME PARTICLES IN LINE. WILL CONTINUE TO MONITOR PT, AND WILL REPORT OFF TO ONCOMING RN.
--- NOTE | 2019-07-24 10:37 | NUR ---
PT AM MEDS, BATH AND SKIN CARE COMPLETED. OPEN WOUND UNDER L PANNIS CLEANED, ALGINATE APPLIED, MEDICATED, AND ABD PLACED. PT IS ABLE TO ASSIST TO TURN SL TO SIDES BUT MAX ASSIST STILL NEEDED TO COMPLETE TURN AND CLEAN AND MEDICATE FOLDS. CATH CARE AND PLACEMENT CHECKED AND SKIN FOLDS CLEANED WITH SMALL OPEN AND ULCERATED LOOKING SPOT NOTED ON R LEG SKIN FOLD. PT IS NOTED TO BE SOMEWHAT EMOTIONAL WITH CARE AND HAS C/O H/A. PT IS VERBAL AND CLEAR ABOUT NEEDS. U.O. NOTED PER BYRNE AND LASTORREY DOSE.
--- NOTE | 2019-07-24 15:21 | NUR ---
1430 PT LIFTED TO CHAIR AND OT WORKED WITH PT. PT WILL ATTEMPT TO REMAIN UP IN CHAIR UNTIL AFTER SUPPER. PT IS RESTING W/O CURRENT DISTRESS. VSS.
--- NOTE | 2019-07-24 17:30 | NUR ---
PT RETURNED TO BED WITH LIFT APPROX 1700. VS NOTED. I/O NOTED. PT HAS BEEN TALKING ON PHONE AND DID STAY UP FOR APPROX 2 1/2 HOURS.
--- NOTE | 2019-07-24 22:30 | NUR ---
ASSUMED CARE OF PT, REPORT RCV'D FROM BETO TAMAYO. PT ALERT AND ORIENTED, COOPERATIVE WITH CARE AND VERY INTERACTIVE WITH MEDICAL STAFF. PT ASSISTS ABLE WITH REPOSITIONING AND WITH SKIN CARE. MULTIPLE EXCORIATIONS AND RED/YEASTY AREAS UNDER PANNUS, BREASTS AND SKIN FOLDS. AREAS CLEANED AND NYSTATIN POWDER AND CREAM APPLIED. TUNNELING LEFT ABDOMINAL WOUND CLEANED AND DRESSED WITH ALGINATE AND ABD PAD, PAD CHANGED-SCANT AMOUNT OF SEROSANGUIOUS FLUID NOTICE. PT REPORTS DECREASING PAIN OVER LAST FEW DAYS AND IMPROVEMENT IN SKIN CONDITION. Q2 LIFTS USING 2 CEILING LIFTS, POSITIONING WITH PILLOWS AND WEDGE. PT ON 5L NC WITH SATS OF 96%, PT WILL USE CPAP AT NOC AND PRN. LUNG SOUNDS CLEAR WITH DIM BASES. PT DENIES SHORTNESS OF BREATH AT THIS TIME. HR 103, SIT. BP WNL. BOWEL TONES HYPOACTIVE, PT REFUSED BOWEL CARE THIS EVENING. BYRNE PATENT AND DRAINING DARK ROMEO/SEDIMENT URINE. CATH CARE PERFORMED. DISCUSSED POSSIBILITY OF TRANSFER TO REHAB FACILITY. PT DENIES NEED AND STATES SHE WILL "NOT BE AWAY FROM HER CHILDREN" FOR THAT LONG. ENCOURAGED HER TO LOOK AT THE [facility] BENEFITS OF GOING TO REHAB. PT UNINTERESTED AT THIS TIME. SEE FULL SHIFT ASSESSMENT.
[2019-07-25 04:37] LABS: Anion Gap 3 mmol/L (6-16); Blood Urea Nitrogen 14 mg/dL (8-24); Bun/Creatinine Ratio 18.2 (12.0-20.0); CO2, Blood 40 mmol/L (21-32); Calcium, Blood 8.8 mg/dL (8.5-10.1); Chloride, Blood 95 mmol/L (98-108); Creatinine, Blood 0.77 mg/dL (0.40-1.00); Glomerular Filtration Rate >60 (60-); Glucose, Blood 161 mg/dL (70-99); Potassium, Blood 3.9 mmol/L (3.5-5.5); Sodium, Blood 138 mmol/L (136-145)
--- NOTE | 2019-07-25 04:55 | NUR ---
SHIFT SUMMARY NO ACUTE CHANGES OVERNIGHT. PT TOLERATED CPAP FROM [id number]. CURRENTLY ON 4L NC WITH SATS OF 92%. PT DESATS TO LOW 80'S WHEN SUPPLEMENTAL OXYGEN NOT IN PLACE. PT ABLE TO APPROPRIATELY EXPRESS HER NEEDS AND ASSISTS WITH REPOSITIONING ABLE. 1000 ML DARK URINARY OUTPUT. PT TREATED FOR GENERALIZED PAIN PER EMAR WITH MODERATE EFFECT. VSS. PT DENIES NEEDS AT THIS TIME. WILL REPORT TO DAYSHIFT NURSE.
--- NOTE | 2019-07-25 08:00 | NUR ---
PT A&OX3. DENIES PAIN, NAUSEA, OR SOB. LUNGS DIMINISHED IN THE BASES. SOB WITH EXERTION. PT DOES NOT TOLERATE LYING FLAT NOR DOES SHE TOLERATE LYING COMPLETELY TO ONE SIDE OR THE OTHER. SATS>90% ON 4 LITERS NASAL CANULA. YEAST TO FOLDS CONTINUES. WILL DISCUSS PO DIFLUCAN WITH DR. DUDLEY TODAY. OVERALL SKIN COMDITION IMPROVED.
--- NOTE | 2019-07-25 14:10 | NUR ---
PT/OT WORKING WITH PT. OOB TO CHAIR UTILIZING CEILING LIFT-TOLERATED WELL. TP SEEMS TO BE IN GOOD SPIRITS THIS AFTERNOON.
--- NOTE | 2019-07-25 16:32 | NUR ---
Jacqueline spiritual care note: Luana was tearful and withdrawn today. She tells me she is trying to make a decision between following physician recommendation or going home. If she follows MD suggestions, it means going to a rehab in [facility]. She does not want to be away from her children. "Its already been too long." Luana tells me that she thinks she can manage on her own at home. She would not engage in conversation and never turned her head to look at me. She made it clear she did not want conversation at this time. I will remain available.
--- NOTE | 2019-07-25 16:40 | NUR ---
PT REPORTS 6/10 GENERALIZED PAIN AND HEADACHE-MED WITH BOTH TYLENOL AND IBUPROFEN-SEE EMAR.
--- NOTE | 2019-07-26 00:21 | NUR ---
ASSUMED CARE OF PT, REPORT RCV'D FROM BETO RAIN. PT ALERT AND ORIENTED, COOPERATIVE WITH CARE. PT STATES ANXIETY REGARDING POSSIBLE TRANSFER TO [facility]. SPENT TIME DISCUSSING THE [facility] BENEFITS, PRINTED OUT INFORMATION FOR FACILITY, STARTED LIST OF PATIENT QUESTION REGARDING TRANSFER AND ENCOURAGED PT TO ADD TO LIST NEEDED. PT REQUESTING THAT SHE NOT BE TRANSFERRED UNTIL THURSDAY AND THAT SHE BE ABLE TO HAVE A VISIT WITH HER CHILDREN ON THURSDAY, MOTHER'S DAY. RELAYED TO PATIENT THAT WE HAVE RESTRICTED VISITING POLICIES BUT I WILL PASS ALONG REQUEST. PT ON 4L HFNC, CPAP NEEDED. PT'S VSS. WOUND/SKIN CARE PERFORMED. Q2H REPOSITIONING AND PRN PER PT REQUEST. PT BETTER ABLE TO ASSIST WITH REPOSITIONING AND SEEMS TO BE MAKING GREAT PROGRESS. SEE FULL SHIFT ASSESSMENT.
--- NOTE | 2019-07-26 05:36 | NUR ---
SHIFT SUMMARY PT STABLE OVERNIGHT. CONTINUED DISCUSSION REGARDING TRANSFER TO REHAB FACILITY. PT FRUSTRATED THIS MORNING AND FEELS LIKE BEING IN THE HOSPITAL IS A "WASTE OF TIME" SHE GAINED WEIGHT OVER THE LAST 24 HOURS. CONTINUED PATIENT TO LOOK AT HER OVERALL PROGRESS. PT EMOTIONAL AND WITHDRAWN AT THIS POINT. PT ON CPAP FROM [id number], CURRENTLY ON 4L HFNC WITH SATS IN THE LOW 90'S. PT'S SATS DROP TO LOW 80'S WHEN OXYGEN REMOVED. 800 ML DARK TEA COLORED URINARY OUTPUT. WILL REPORT TO DAYSOKFT NURSE
--- NOTE | 2019-07-26 07:42 | NUR ---
ASSUMED CARE: PT RESTING IN BED, SPEAKING WITH STAFF. NC 3L VIA NC. NO ACUTE NEEDS OR CONCERNS AT THIS TIME.
--- NOTE | 2019-07-26 13:55 | NUR ---
DR DUDLEY MADE AWARE OF PT'S DARKENED URINE THAT APPEARS TO HAVE BLOOD CLOTS AND SEDIMENT WELL. PT ALSO C/O BLADDER SPASMS. NEW ORDER FOR PYRIDIUM. DR DECLINED UA DUE TO ALREADY BEING ON BACTRIM.
--- NOTE | 2019-07-26 18:11 | NUR ---
SHIFT SUMMARY: PT RECIEVED A BED BATH TODAY WITH DRESSING CHANGED TO LEFT PANNIS. STATES SHE DOES NOT FEEL WOUND CARE METHODS ARE WORKING. PT STATES SHE DISCUSSED WITH . UP TO CHAIR VIA LIFT WITH PT/OT WHO STATE PT MADE GOOD PROGRESS. PLAN IS FOR DC TO SNF WHEN BED BECOMES AVAILABLE. NO ACUTE NEEDS OR CONCERNS.
--- NOTE | 2019-07-26 22:09 | NUR ---
ASSUMED CARE OF PT, REPORT RCV'D FROM BETO HERNANDEZ. PT ALERT AND ORIENTED, REMAINS COOPERATIVE AND ASSISTS WITH CARE CAPABLE. PT MUCH MORE EMOTIONAL THIS EVENING AND IS QUESTIONING MEDICATIONS TO BE ADMINISTERED AND PURPOSE OF MEDICATIONS. PROVIDED PT WITH LIST OF CURRENT MEDICATIONS BEING ADMINISTERED, NAMES/DOSAGE/PURPOSE/HOW LONG SHE'S BEEN TAKING THEM. REVIEWED PT'S TREND OF VITAL SIGNS, SPECIFICALLY BLOOD PRESSURES. PT FACETIMED HER MOTHER AND I RELAYED INFORMATION TO MOTHER AND ANSWERED QUESTIONS RELATED TO MEDICATION. PT FEELS LIKE HER MEDICATIONS ARE BEING CHANGED AND THAT SHE ISN'T BEING TOLD, WILL PASS ON TO ONCOMING SHIFT AND PUT NOTE ON CHART TO UPDATE PATIENT WITH ANY CHANGES TO MEDICATIONS OR PLAN OF CARE. PT ON 3L HFNC, SATS 91%. PERFORMED EXTENSIVE SKIN CARE, APPLIED NYSTATIN CREAM AND POWDER NEEDED. SKIN APPEAR TO BE IMPROVING. BYRNE PATENT AND DRAINING DARK ROMEO URINE. SEE FULL SHIFT ASSESSMENT
--- NOTE | 2019-07-27 06:02 | NUR ---
SHIFT SUMMARY NO ACUTE CHANGES OVERNIGHT. PT VERY EMOTIONAL WITH SEVERAL EPISODES OF CRYING. CONTINUED TO REINFORCE IMPORTANCE OF BEING D/C'D TO REHAB FACILITY, PT STATES SHE "JUST WANTS TO GO HOME". REVIEWED WITH PATIENT HER LAB RESULTS, VITAL SIGN TRENDS, MEDICATIONS, CASE MANAGEMENT NOTES REGARDING FINDING REHAB FACILITY. PT ON CPAP FOR APPROXIMATELY 3 HOURS OVERNIGHT. CPAP ALARMS OFTEN WHEN PT FALLS ASLEEP, SPOKE WITH RT REGARDING POSSIBLE ADJUSTMENTS TO SETTINGS. VSS T/O SHIFT. 2400 ML DARK URINARY OUTPUT. WILL REPORT TO DAYSHIFT NURSE.
--- NOTE | 2019-07-27 18:41 | NUR ---
SUMMARY Assumed care of pt at 0700. Bedside report received from Santiago PÉREZ. Pt initially on 2 LPM NC. Required titration up to 4 LPM NC as pt desaturates with in bed activity. Pt rolls left to right with verbal cues. Pt OOB to chair using ceiling lift. Pt up in chair for about four hours. Pt states desire to stand and walk and states that if she does these things, she will be willing to go home. Discussed with PT and OT, they will not assist pt to stand. No acute changes to shift assessment. Will continue to closely monitor until care handoff and bedside report with oncoming RN.
--- NOTE | 2019-07-27 20:00 | NUR ---
ASSUMPTION OF CARE: PT A&O. AWAKE IN BED. VSS. LUNG SOUNDS CLEAR, DIM IN BASES. ON 4L NC. SPO2 >90%. BYRNE IN PLACE DRAINING TO GRAVITY. PT DOES NOT HAVE ANY COMPLAINTS AT THIS TIME.
[2019-07-28 04:04] LABS: Anion Gap 4 mmol/L (6-16); Blood Urea Nitrogen 21 mg/dL (8-24); Bun/Creatinine Ratio 22.2 (12.0-20.0); CO2, Blood 39 mmol/L (21-32); Calcium, Blood 8.8 mg/dL (8.5-10.1); Chloride, Blood 96 mmol/L (98-108); Creatinine, Blood 0.95 mg/dL (0.40-1.00); Glomerular Filtration Rate >60 (60-); Glucose, Blood 151 mg/dL (70-99); Magnesium, Blood 1.6 mg/dL (1.6-2.4); Potassium, Blood 4.4 mmol/L (3.5-5.5); Sodium, Blood 139 mmol/L (136-145)
--- NOTE | 2019-07-28 06:07 | NUR ---
SHIFT SUMMARY: NO ACUTE CHANGES T/O SHIFT. PT CURRENTLY ON 3L NC. TOLERATING WELL. SPO2 >90%. SKIN HAS YEASTY REDDENED AREAS T/O. OPEN WOUND UNDER L PANNUS. BACK AND COCCYX CLEAN AND INTACT. HOWEVER, PT DOES HAVE MULTIPLE WEEPING SKIN AREAS ON BACK AND LEFT SIDE OF BODY. PT WAS ABLE TO HELP WITH ALL REPOSITIONING T/O SHIFT. CURRENTLY COMFORTABLE SUPINE. VSS. SHE IS CURRENTLY AWAKE AND WATCHING TV. WILL PASS REPORT TO ONCOMING SHIFT
--- NOTE | 2019-07-28 16:28 | NUR ---
Spiritual care note: Luana was emotionally withdrawn today. She tells me she does not know "what the plan is." She admits to considering accepting placement for rehab in the [place] area. She misses her kids. Provided calm presence, emotional affirmation. [employer] will remain available.
--- NOTE | 2019-07-28 19:35 | NUR ---
MOBILITY This shift, pt sat on EOB with supervision only. Pt tolerated this activity well and maintained own balance. Pt lifted to recliner. Pt able to stand from recliner, holding onto side rail of bed, without assistance. Pt supervised by this RN, clinic charge nurse, and clinical coordinator. Pt tolerated activity well, states this activity feels much easier than she expected. Pt's goal is to take a few steps tomorrow.
--- NOTE | 2019-07-28 19:37 | NUR ---
SUMMARY No acute changes to initial assessment. With pt's increased activity today, pt required O2 titration up to 6 LPM NC. Plan to titrate down. Discharge plan has changed from rehab to home. Pt is motivated to increase mobility with goal of being able to stand and walk, if it means she can go home. 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 Bedside report given to Paty PÉREZ.
--- NOTE | 2019-07-28 21:20 | NUR ---
CARE ASSUMPTION PT MEDICAL NO TELE STATUS. A&O X4. VSS. SPO2 > 92% ON 6L NC, TITRATED TO 4L NC W/ PT TOLERATING WELL. PT REPORTS VOIDING POST BYRNE CATH REMOVAL TODAY. WILL CONTINUE TO MONITOR AND PROIVDE CARE.
--- NOTE | 2019-07-28 22:30 | NUR ---
PT C/O POWERGLIDE PT C/O POWERGLIDE TO ZACH STATING "IT'S POKING ME. I'M RIGHT HANDED & CAN'T DO ANYTHING WITH IT IN MY ARM." PT BECAME EMOTIONAL, STATING "I'M TAKING IT OUT!" AND BEGAN TO PEEL CORNER OF DRESSING OFF. PT ENCOURAGED NOT TO REMOVE POWERGLIDE, STATING IV ACCESS IS NEEDED WHILE IN HOSPITAL. PT STATED "I'VE TAKEN THEM OUT ON MY OWN BEFORE JUST FINE." PT ADVISED TO PLEASE LEAVE POWERGLIDE BE A NEW IV WOULD THEN HAVE TO BE PLACED IF REMOVED. ORIGINAL GAUZE IN PLACE TO SITE FOR ADDED PADDING W/ PT SELF MANUEVERING GAUZE UNDER DRESSING PT SEES FIT. PT ADVISED AGAINST TAMPERING W/ POWERGLIDE & ENCOURAGED TO KEEP ARM STRAIGHT WHEN NOT NEEDING TO USE ARM. PT THEN SETTLED AND AGREEABLE, LEAVING DRESSING & POWERGLIDE ALONE.
--- NOTE | 2019-07-29 05:51 | NUR ---
SHIFT SUMMARY PT CONTINUES TO BE A&O X4. VSS. MEDICAL NO TELE STATUS. PT TITRATED FROM 6L NC TO 3L NC THIS SHIFT FOR SPO2 > 90%. PT DESAT TO 80's w/ ACTIVITY, REQUIRING TITRATION UP TO 6L, ABLE TO RETURN TO 3L NC ONCE RESTING & RECOVERED. PT WEARING BIPAP FOR BRIEF TIME WHILE SLEEPING FROM APPROX [phone] THIS SHIFT. PT USING BEDPAN. URINE NOTED TO BE ORANGE IN COLOR, NOTED W/ DAY SHIFT RN FROM PREVIOUS BYRNE CATH COLLECTION. SKIN NOTED TO BE RED & MOIST IN SKIN FOLDS OF BILAT BREASTS, PANNUS, AND BILAT LEG FOLDS. OPEN WOUND UNDER L PANNUS CLEANSED & REDRESSED THIS SHIFT. SKIN CARE PROVIDED MULTIPLE TIMES T/O SHIFT ALONG W/ REPOSITIONING. PT ABLE TO ASSIST W/ MOST REPOSITIONING, BUT REQUIRES MORE ASSISTANCE W/ ROLLING TO L SIDE PT REPORST "I AM MORE SWOLLEN ON MY R SIDE, SO IT'S HARDER FOR ME TO ROLL TO MY LEFT SIDE." CEILING LIFT USED NEEEDED. PT STATES SHE INTENDS TO STAND AND HOPEFULLY WALK TODAY. WILL CONTINUE TO MONITOR AND PROVIDE CARE UNTIL REPORT OFF TO DAY SHIFT RN.
--- NOTE | 2019-07-29 08:00 | NUR ---
PT SOMEWHAT IRRITABLE THIS AM. HER MAIN COMPLAINT IS REGARDING THE EXTENDED DWELL CATHETER IN HER RIGHT UPPER ARM. SHE STATES THAT IT IS PAINFUL BECAUSE IT IS IN THE CREASE OF HER ARM. SHE HAS PEELED UP THE EDGES OF THE CHG DRESSING. PT ENCOURAGED NOT TO TOUCH OR PICK AT THE IV IT MAKES HER MORE LIKELY TO GET AN INFECTION. PT VERBALIZES UNDERSTANDING, BUT CONTINUES TO TOUCH AND PICK AT THE DRESSING. WILL ATTMEPT TO OBTAIN NEW IV LATER THIS AM. LUNGS DIMINISHED IN THE BASES-SATS>90% ON 3 LITERS NASAL CANULA. TITRATED UP TO 6 LITERS WITH LYING PT FLAT AND TURNING SIDE TO SIDE SHE DOES NOT TOLERATE THIS MOVEMENT WITHOUT DESATURATING. OVERALL EDEMA HAS IMPROVED. RIGHT LOWER EXTREMITY-POSTERIOR FOLD AREA APPEARS RED, SWOLLEN, AND FOUL SMELLING DRAINAGE COMING FROM THE WOUND. WILL ASSESS MORE DURING BATH.
--- NOTE | 2019-07-29 10:30 | NUR ---
PT HAS BEEN PLACED ON THE BEDPAN SEVERAL TIMES THIS AM. DESPITE LAYERS OF PADDING, SHE IS SATURATING THE BED. HER RIGHT SIDE IS QUITE EXCORIATED A RESULT. EXTENSIVE BATHING, SKIN CARE, AND LINEN CHANGE COMPLETED. NYSTATIN POWDER TO ALL SKIN FOLDS. I EXPRESSED MY CONCERN FOR PT SKIN INTEGRITY WILL DR. BAH AND HE GAVE ORDER TO PLACE BYRNE CATHETER. PT IS VERY AGITATED, TEARFUL. SHE EXPRESSES THAT SHE FEELS THAT WE WERE TO ROUGH WHEN CLEANING THE SKIN FOLDS ON THE RIGHT SIDE OF HER BODY. RN EXPLAINED TO PT THAT I AM GENTLY I CAN POSSIBLY BE AND STILL DO A PROPER JOB. PT WITHDRAWN AND NOT ANSWERING SOME QUESTIONS. PT REFUSING BYRNE AT THIS TIME.
--- NOTE | 2019-07-29 11:15 | NUR ---
PT TEARFUL AND WITHDRAWN. SHE DOES STATE THAT SHE IS FRUSTRATED WITH THE SITUATION. ENCOURAGED PT TO TAKE SOME TIME TO WORK THROUGH HER EMOTIONS. AGREED TO ALLOW RN TO RETURN AT 1130. PT STATES THAT SHE WILL CALL FOR ASSIST SHOULD SHE NEED IT PRIOR TO THAT TIME.
--- NOTE | 2019-07-29 13:04 | NUR ---
PT REPORTING DISCOMFORT FROM THE EXTENDED DWELL CATHETER. PT REQUESTED THAT ANOTHER IV BE STARTED IF POSSIBLE. I UTILIZED THE SITE RIGHT IN ATTMEPT TO GET ANOTHER IV, BUT WAS UNSUCCESSFUL AND DID NOT SEE ANY OTHER SITES THAT COULD BE ATTEMPTED. DRESSING CHANGE DONE TO RIGHT UPPER ARM EXTENDED DWELL CATHETER AND PT STATES THAT IT FEELS "BETTER."
--- NOTE | 2019-07-29 14:59 | NUR ---
DISCUSSED PLAN OF CARE WITH PT AT LENGTH. I EXPRESSED MY CONCERN FOR PT SKIN INTEGRITY BEING COMPROMISED DUE TO THE FACT THAT WE AREN'T ABLE TO KEEP HER SKIN CLEAN AND DRY. ALSO, DISCUSSED NEED TO MOBILIZE IN ORDER TO GET PT STRONGER SO THAT SHE CAN GO HOME. PT STATES THAT SHE DOES WANT TO GO HOME AND IS FRUSTRATED THAT SHE IS NOT ABLE TO DO SO RIGHT NOW. PT REFUSED PT/OT. THIS RN HAS OFFERED AND ENCOURAGED PT TO GET OOB SEVERAL TIME THIS SHIFT AND PT CONTINUES TO REFUSE. IT SEEMS THAT PT IS AWARE OF THE RISK/CONSEQUENCES OF HER DECISIONS. ARRANGEMENTS MADE FOR PT TO SEE HER FAMILY ON THURSDAY FROM [id number]. PT AND HER MOTHER MADE AWARE THAT THIS IS A ONE TIME DEAL AND THAT IT IS ONLY FOR 1 HR. ALSO, FAMILY REMINDED THAT NO OUTSIDE FOOD OR DRINKS WILL BE ALLOWED. PT MOTHER, SUNITHA, VERBALIZES UNDERSTANDING AND COOPERATION WITH THIS PLAN.
--- NOTE | 2019-07-29 16:45 | NUR ---
PT AGREED TO HAVE BYRNE CATH PLACED. RN HAD OFFERED NUMEROUS TIMES TO PLACE BEDPAN. HOWEVER, PT STATED "I DON'T WANT TO MOVE BECAUSE IT HURTS!" FINALLY, WITH MUCH DIFFICULTY, # 18 FR BYRNE PLACED. UA SENT PER PROTOCOL. DR. BAH STATED THAT HE DID NOT WANT A UA SENT WHEN THE ORDER FOR THE BYRNE WAS GIVEN. HOWEVER, UA SENT PER BYRNE INSERTION PROTOCOL. PT CRYING OUT "IT MOSQUEDA!" HER PANNUS, IN BETWEEN HER LEGS, AND DENISHA AREA VERY RED AND EXCORIATED. CLEANSED WITH WOUND CLEANSED, GENTLY PATTED DRY, AND NYSTATIN PLACED. DESPITE THESE EFFORTS, PT CONTINUES TO COMPLAIN OR DISCOMFORT. PT INCONSOLABLE AT THIS TIME. REQUESTED THAT BETO ARNOLD SPEAK WITH PT.
[2019-07-29 17:13] LABS: Source, Urine Catheter
[2019-07-29 17:21] LABS: Blood, Urine 4+ (Neg); Glucose Qualitative, Urine Neg (Neg); Ketones, Urine 1+ (Neg); Leukocyte Esterase, Urine 2+ (Neg); Nitrite, Urine Pos (Neg); Protein, Urine Neg (Neg); Urobilinogen, Urine 3+ (Normal)
[2019-07-29 17:32] LABS: Appearance, Urine Clear (Clear); Bilirubin, Urine 2+ (Neg); Color, Urine Amber (P-Yellow); Red Blood Cells, Urine 50-100 /hpf (0-2); White Blood Cells, Urine 50-100 /hpf (0-5)
[2019-07-29 17:33] LABS: Bacteria Mod /hpf; Squamous Epithelial Cells Few /hpf (Few)
--- NOTE | 2019-07-29 17:34 | NUR ---
Behavior: Patient pushed call light at approx 1715hr. This nurse to room to adress patient's need. Patient asked "what bag did that other julio c take out of here?" This nurse then asked "do you mean Angel, the other nurse?", to which that patient replied "yeah, he took some bag out of here down at his side, all sly like". This nurse then responded "I do not know what he removed from the room, but I assure you that he was not trying to sneak anything out of the room". The patient then responded "well go ask him". After discussion with Angel PÉREZ, informed that angel removed at urine sample in a biohazard bag to send to the lab. Within 2 minutes of this nurse leaving the patient's room (while speaking with Angel PÉREZ), the patient again pushed the call light. This nurse returned to the patient's's room. Patient then stated "what did he take". This nurse informed patient that Angel removed a UA. The patient then stated "The Doctor said I did not need a UA". Patient then informed that a UA is obtained after every placement of a Wilson catheter. Patient stated "well that would of been nice to know". This nurse then apologized that she was not informed of the UA, and again explained that obtaining a UA is protocol following Wilson catheter placement. Primary RN Juana then informed of conversation.
--- NOTE | 2019-07-29 17:49 | NUR ---
THIS ASSAYER WENT INTO PT'S ROOM TO DISCUSS POSSIBLE CONCERNS WITH CARE TODAY. ASKED PT IF SHE HAD CONCERNS ABOUT THE CARE SHE RECEIVED TODAY - SHE STATED "I JUST DON'T LIKE WHEN THINGS AREN'T THE WAY SHE SAID THEY WOULD BE". WHEN PROBED TO ELABORATE, THE PT STATED "JUST SOME THINGS WEREN'T HOW SHE SAID THEY WOULD BE". ASKED THE PT TO PLEASE GIVE DETAILS IF THERE WERE CONCERNS WITH HER CARE TODAY, AND SHE SAID "IT'S FINE". ASKED HER IF SHE WOULD PREFER A DIFFERENT RN TO CARE FOR HER TOMORROW, AND SHE SAID NO. ASKED AGAIN, AND SHE SAID "NO, IT'S FINE". AGAIN EXPRESSED THAT IF THERE WERE SPECIFIC CONCERNS, SHE COULD ASK FOR ME OR ANOTHER QUALITY ASSURANCE TO COME TO THE ROOM AND ADDRESS THEM THEY OCCUR. PT EXPRESSED UNDERSTANDING.
--- NOTE | 2019-07-29 22:00 | NUR ---
PT RESTING IN BED. PT IS A/O X4. PT GETS SOB WITH EXERTION. SHE IS ABLE TO HELP TURN SIDE TO SIDE IN BED. O2 UP TO 6L WHILE CHANGING LINENS AND EXERTION BUT PT DOES WELL. PT HAS EXCORIATED SKIN IN PERIAREA AND DOWN LEGS. DID SKIN CARE BY USING WOUND CLEANSER SPRAY THEN PATTING DRY AND APPLIED NYSTATIN POWDER AFTER. PANNUS IS RED AND EXCORIATED UNDER IT WELL. SAME WOUND CARE REGIMEN USED THEN PLACED ABD PADS UNDER PANNUS TO TRY TO WICK MOISTURE OUT. R BREAST IS RED AND LARGER THAN L. PT STATES IT HAS BEEN THAT WAY SINCE ADMIT. THERE IS A HOLE IN SKIN UNDER PANNUS ON L SIDE. CLEANSED AREA AND PLACED NYSTATIN AND ABD PAD. SKIN OVER ABD IS THICKENED AND ROUGH. PT IS ABLE TO TALK ON PHONE TO FAMILY. NO SIGN OF DISTRESS. USES CALL LIGHT APPROPRIATELY.
--- NOTE | 2019-07-30 01:15 | NUR ---
PT C/O BURNING IN URINARY TRACT. CALLED DR. DUDLEY AND RECEIVED ORDERS FOR PYRIDIUM. PT ALSO C/O OF SKIN BURNING FROM BEING EXCORIATED. EDUCATED PT THAT TAKING THE BYRNE OUT MIGHT ONLY MAKE SKIN WORSE DUE TO PT ONLY BEING ABLE TO USE BEDPAN. PT DECLINES PAIN MEDS. KEEPING SKIN CLEAN AND DRY.
--- NOTE | 2019-07-30 02:30 | NUR ---
PT CONTINUES TO C/O BURNING AROUND CATHETER. WILL FALL TO SLEEP WHEN UNDISTURBED BUT WILL WAKE UP CRYING. WILL NOT PUT CPAP ON. WILL NOT TAKE A PAIN PILL. ON CONTINUOUS OXIMETRY.
--- NOTE | 2019-07-30 06:28 | NUR ---
SUMMARY PT ONLY SLEPT FOR ABOUT AN HOUR AND A HALF. ONLY WORE CPAP DURING THAT TIME. PT WILL ONLY ALLOW TO BE REPOSITIONED AT HER REQUEST AND HOW SHE WANTS TO BE REPOSITIONED. SHE CAN ASSIST WITH TURNING AND HER UPPER EXTREMITIES ARE STRONG ENOUGH TO HOLD HER WEIGHT ON HER SIDE. PT WILL ALSO DICTATE HER WOUND AND SKIN CARE. C/O URINARY TRACT BURNING DURING THE NIGHT. GOT ORDER FOR PYRIDIUM THE PT FINALLY TOOK ANOTHER TRAMADOL AND SHE WAS ABLE TO SLEEP FOR THAT SHORT AMT OF TIME. PT WILL AT TIMES REFUSE TO WEAR HER OXYGEN AND WILL DESAT DOWN TO 86-88% THEN WILL EVENTUALLY PUT IT BACK ON. PT IS ON CONTINUOUS OXIMETER. NO SIGN OF DISTRESS AT THE MOMENT.
--- NOTE | 2019-07-30 08:30 | NUR ---
PT A&OX3. DENIES PAIN, NAUSEA, OR SOB. VS WDL. LUNGS REMAIN DIMINISHED IN THE BASES. SATS>90% ON 3 LITERS NASAL CANULA. PT CONTINUES TO HAVE DIFFICULTY LYING COMPLETELY FLAT AND TURNING FROM SIDE TO SIDE. FIO2 TITRATED UP WITH TURNING AND REPOSITIONING TO KEEP SATS>90% SKIN TO FOLDS AND RIGHT SIDE REMAINS RED, EXCORIATED. NYSTATIN POWDER AND WOUND CARE DONE DURING BATH. BYRNE DRAINING ADEQUATE AMOUNT OF ORANGE URINE. PYRIDIUM GIVEN FOR BLADDER SPASM.
--- NOTE | 2019-07-30 10:35 | NUR ---
[id number]: EXTENSIVE BATHING AND SKIN CARE COMPLETED. SKIN CONTINUES TO BE RED AND EXCORIATED. ALL FOLDS CLEANSED AND GENTLY PATTED DRY-NYSTATIN POWDER APPLIED. THE WOUND UNDER THE LEFT SIDE OF THE PANUS IS IMPROVING, BUT STILL IN NEED OF ALGINATE. IT IS DIFFICULT TO KEEP PT SKIN FOLDS/WOUNDS CLEAN AND DRY. PT VERBALIZED THAT SHE FEELS THAT THE ALGINATE DOESN'T HELP. SHE STATES THAT SHE TOOK A PICTURE OF IT YESTERDAY. PT REFUSED TO ALLOW FOR PHOTOS TO BE TAKEN BY THIS RN YESTERDAY. THERE IS A SMALL WOUND APROXIMATELY THE SIZE OF A DIME TO THE FOLDS ON THE RIGHT LEG. CLEANSED WITH WOUND CLEANSER AND TINY PIECE OF ALGINATE PLACED. DESPITE RN ATTEMPTING TO BE GENTLE, WHILE THOUROUGHLY CLEANSING THE AFFECTED AREAS, PT COMPLAINED THROUGH OUT THE BATH OF PAIN. ALSO, SATS DOWN TO 70'S AT TIMES WHILE FLAT OR TURNING FROM SIDE TO SIDE. PT REFUSED TO ALLOW RN TO TITRATE UP THE FIO2 TO KEEP HER SATS>90%. SHE COMPLAINS THAT THE HIGHER FLOW O2 HURTS HER NOSE. IN ADDITION, RN ENCOURAGED PT TO WEAR THE BIPAP FOR A WHILE IN ORDER TO GET SATS>90%-PT REFUSES.
--- NOTE | 2019-07-30 13:15 | NUR ---
UTILIZED CEILING LIFT TO GET PT UP TO [facility]AIR. ONCE IN THE CHAIR, PT ABLE TO STAND AT THE BEDSIDE UNASSISTED AND TAKE SEVERAL STEPS. PT VERBALIZING HER NEEDS WELL. ONCE SHE BECAME FATIGUED, SHE REQUESTED TO SIT BACK DOWN AND THE CHAIR WAS PUSHED UP BEHIND HER. SHE DID NEED LIFT ASSISTANCE WITH GETTING HER BACK SIDE FAR ENOUGH BACK IN THE RECLINER. PT IN GOOD SPIRITS. AGREES TO SIT UP FOR 30 MINUTES. WILL CALL FOR ASSIST IF NEEDED BEFORE THEN.
--- NOTE | 2019-07-30 14:00 | NUR ---
PT ABLE TO SIT UP IN THE CHAIR X 30 MINUTES. CEILING LIFT UTILIZED TO GET PT BACK TO BED. SKIN CARE DONE AND LIFT SHEET CHANGED. GENTLY CLEANSED AFFECTED AREAS WITH WOUND CLEANSER, PATTED DRY, AND NYSTATIN POWDER APPLIED. PT SEEMED TO TOLERATE NOEL CARE BETTER THAN SHE DID THIS AM. HOWEVER, SATS DOWN TO 70'S WITH PT LAYING ON HER LEFT SIDE. BIPAP PLACED X 5 MINUTES. SATS IMMEDIATELY >95%. PT CYANOTIC WHEN HER SATS IN THE 70'S. HER FACE WAS BLUISH/PURPLE IN COLOR. ENCOURAGED PT TO WEAR THE BIPAP FOR AT LEAST AN HOUR. PT REFUSES TO WEAR BIPAP. SATS >90% ON 3 LITERS NASAL CANULA. ENCOURAGED INCENTIVE SPIROMETRY.-PT VERBALIZES UNDERSTANDING.
--- NOTE | 2019-07-30 18:37 | NUR ---
PT SUMMONED RN TO ROOM AND REPORTS THAT HER RIGHT ARM IS RED, HOT, AND ITCHY. EXTENDED DWELL CATHETER SITE CLEAR AND ABLE TO GET BLOOD RETURN. CLEANSED WITH WARM SOAPY WATER, PATTED DRY, AND NYSTATIN APPLIED.
--- NOTE | 2019-07-30 22:00 | NUR ---
ASSUMPTION OF CARE ASSUMED CARE OF PT @ 1900, PT AWAKE IN BED, ORIENTED x4 WATCHING TELEVISION. EXTENSIVE WOUND CARE PROVIDED, PT REPORTS PAIN AND DISCOMFORT WITH SOME CARE, DECLINES PAIN MEDS. NEW ORDERS FROM DR SWEENEY FOR HYDROCORTISONE CREAM R/T UPPER R ARM RASH AND ATIVAN FOR BIPAP TOLERANCE AT NIGHT. PT DECLINES ATIVAN AND BIPAP AT THIS TIME.
--- NOTE | 2019-07-31 01:56 | NUR ---
IN PTS ROOM FOR REPOSITIONING AND LINEN CHANGE. PT HAVING VERY DIFFICULT TIME GETTING COMFORTABLE. INITIAL LINEN CHANGE BECAME SOILED VERY QUICKLY SO WAS CHANGED AGAIN. PT STS WANTS PILLOWS UNDERNEATH BOTH SIDES, PILLOWS PLACED UNDER L SIDE PT STS SHE CANNOT TURN ONTO L SIDE WITH PILLOWS, DECLINES USING LIFT TO GET PILLOWS UNDERNEATH R SIDE. PT THEN REPORTS DISCOMFORT WITH GREEN LIFT SHEET. CEILING LIFT USED FOR UPPER HALF OF BODY TO STRAIGHTEN GREEN SHEET OUT. PT CONTINUES TO REPORT DISCOMFORT. FLAT SHEET, ADDITIONAL PILLOWS, REPOSITIONING OFFERED TO INCREASE COMFORT, PT DECLINES AT THIS TIME.
--- NOTE | 2019-07-31 05:36 | NUR ---
SHIFT SUMMARY NO ACUTE CHANGES THIS SHIFT, PT TRANSITIONS FROM NC TO BIPAP INDEPENDENTLY. PT WITH DIFFICULTY GETTING COMFORTABLE, BECAME UPSET AND FRUSTRATED WITH THE SITUATION, DECLINED SUBSEQUENT ASSISTANCE WITH REPOSITIONING, PT IS ABLE TO MAKE SMALL ADJUSTMENTS ON OWN IN BED. MORNING LABS DRAWN, PENDING RESULTS. CALL LIGHT WITHIN REACH.
[2019-07-31 06:01] LABS: Anion Gap 5 mmol/L (6-16); Blood Urea Nitrogen 19 mg/dL (8-24); Bun/Creatinine Ratio 24.1 (12.0-20.0); CO2, Blood 39 mmol/L (21-32); Calcium, Blood 9.1 mg/dL (8.5-10.1); Chloride, Blood 95 mmol/L (98-108); Creatinine, Blood 0.79 mg/dL (0.40-1.00); Glomerular Filtration Rate >60 (60-); Glucose, Blood 146 mg/dL (70-99); Potassium, Blood 4.3 mmol/L (3.5-5.5); Sodium, Blood 139 mmol/L (136-145)
--- NOTE | 2019-07-31 08:00 | NUR ---
PT A&0X3. VEBALIZING FRUSTRATION REGARDING HER CARE DURING THE NIGHT, BUT COOPERATIVE WITH CARE. VS WDL. LUNGS REMAIN DIMINISHED IN THE BASES. SATS>90% ON 3 LITERS NASAL CANULA. SOB WITH EXERTION. PT DOES NOT TOLERATE LYING FLAT, NOR SIDE TO SIDE FOR PROLONGED PERIODS OF TIME. SATS DROP TO 80'S. PT GIVEN EXTENSIVE BATH, WOUND CARE DONE, AND LINEN CHANGE COMPLETED. OVERALL SKIN APPEARANCE IS IMPROVING. NYSTATIN POWDER TO ALL SKIN FOLDS.
--- NOTE | 2019-07-31 10:02 | NUR ---
PT REPORTS 6/10 GENERALIZED PAIN AND REQUESTED "TYLENOL." REQUEST GRANTED-SEE EMAR.
--- NOTE | 2019-07-31 10:31 | NUR ---
PT APPEARS TO BE SLEEPING. SATS 92% ON 3 LITERS NASAL CANULA.
--- NOTE | 2019-07-31 11:49 | NUR ---
PT REPORTS THAT SHE HAS A 6/10 HEADACHE AND REQUESTS IBUPROFEN-REQUEST GRANTED-SEE EMAR. REPORTS RIGHT LEG DISCOMFORT- CLEANSED AFFECTED AREA WITH WOUND CLEANSER AND PATTED DRY-NYSTATIN APPLIED. PT EDEMA CONTINUES-IT IS PITTING AND DEPENDENT-IT APPEARS TO BE WEEPING WELL. CHECKED GREEN SHEET TO CONFIRM THAT IT IS DRY-IT APPEARS TO BE CLEAN AND DRY AT THIS TIME.
--- NOTE | 2019-07-31 12:30 | NUR ---
PT STATES THAT SHE DOES NOT FEEL THAT THE IBUPROFEN HAS HELPED HER HEADACHE. PT REPOSITIONED UTILIZING THE CEILING LIFT. NOTED MOISTURE FROM WEEPING EDEMA TO LEFT HIP AND UNDER THE RIGHT LEG. RN OFFERED TO CHANGE OUT THE GREEN SHEET AT THAT TIME. PT REQUESTS TO EAT HER LUNCH AND WILL CALL FOR ASSIST WITH THE LINEN CHANGE AFTER HER VISIT WITH FAMILY.
--- NOTE | 2019-07-31 16:17 | NUR ---
[id number]: SKIN CARE DONE, NYSTATIN APPLIED TO AFFECTED AREAS, GREEN SHEET CHANGED. PT ASSISTED UP TO CHAIR USING CEILING LIFT. PT ABLE TO STAND AND AMBULATE APROX. 6 FEET. PT STATES THAT SHE FEELS STONGER THAN YESTERDAY. PT ASSISTED BACK TO CHAIR AND USED CEILING LIFT TO SCOOT HER BACK IN THE BARIATRIC RECLINER CHAIR. PT ABLE TO SIT UP FOR APROX. 1 HOUR. WORKED WITH PT WHILE UP IN THE CHAIR WELL. AFTER 1 HOUR IN THE CHAIR, PT ASSISTED BACK TO BED USING CEILING LIFT. SHE SEEMS TO BE IN GOOD SPIRITS THIS AFTERNOON. SHE EXPRESSES HER GRATITUDE FOR THE VISIT WITH HER FAMILY.
--- NOTE | 2019-07-31 18:35 | NUR ---
PT VERBALIZING GOALS FOR T[place]MOROW. PT WANTS TO AMBULATE FARTHER THAN SHE DID TODAY, AND GET SOME RESISTANCE BANDS AND EXERCISES FOR STRENGTHENING. PT IN GOOD SPIRITS THIS EVENING-DENIES COMPLAINTS AT THIS TIME.
--- NOTE | 2019-07-31 22:09 | NUR ---
ASSUMED CARE OF PT, REPORT RCV'D FROM BETO RAIN. PT ALERT AND ORIENTED, COOPERATIVE WITH CARE. PT EAGER TO SHARE HER DAY AND HER EXCITEMENT OVER VISITING WITH HER CHILDREN AND HER MOTHER. SATS>90% ON 3LNC, CPAP PRN. LUNG SOUNDS CLEAR WITH BILATERAL DIM BASES. PT DYSPNEIC ON EXERTION BUT SEEMS TO BE TOLERATING MOVEMENT BETTER. PT BETTER ABLE TO ASSIST WITH REPOSITIONING AND CARE. REFUSES REPOSITIONING Q2 AND ONLY WANTS TO BE REPOSITIONED WHEN "NEEDED". BT HYPOACTIVEX4, PT REPORTS NO BM SINCE 07/25, GIVEN STOOL SOFTENERS PER EMAR. PT'S SKIN IMPROVING. NYSTATIN POWDER APPLIED ON ALL SKIN FOLDS. L PANNUS WOUND CALCIUM ALGINATE CHANGED DURING DAYSHIFT, ASSESSED THIS SHIFT AND ABD PAD APPLIED. RIGHT UPPER BACK SKIN FOLD YEASTY, APPLIED NYSTATIN CREAM NEEDED. RIGHT LOWER LEG FOLD YEASTY, CLEANED WITH WOUND CLEANSER, DRIED AND NYSTATIN POWDER APPLIED. PT REFUSING UPDATED WOUND PICTURES AT THIS POINT. PT CONTINUES TO EXPRESS HER DESIRE TO BE DISCHARGED HOME. PT WANTS TO BE DISCHARGED WITHOUT NEEDING A LIFT SHE FEELS LIKE SHE WILL NOT HAVE ANYONE AT HOME TO ASSIST. PER PT AND DAYSHIFT NURSE, PT ABLE TO AMBULATE AROUND THE BED. PT STATES SHE FEELS LIKE SHE IS STEADY ON HER FEET BUT LIKES TO HAVE SOMETHING TO HOLD ON TO, DISCUSSED POSSIBLE DISCHARGE WITH WALKER. PT SEEMED OPEN TO DISCUSSING PLAN FOR SAFELY DISCHARGING HOME. SEE FULL SHIFT ASSESSMENT.
--- NOTE | 2019-08-01 05:40 | NUR ---
SHIFT SUMMARY NO ACUTE CHANGES OVERNIGHT. PT WORE CPAP FOR APPROXIMATELY 3 HOURS, REMAINS ON 2-3L NC. O2 ABLE TO BE TITRATED DOWN TO 2L WITH SATS OF 90-91%. PT ASSISTING MORE WITH CARE AND ABLE TO ASSIST TURNING BACK AND FORTH. PT DID NOT REQUIRE THE CEILING LIFT FOR REPOSITIONING T/O SHIFT. 1900 DARK URINARY OUTPUT. WILL REPORT TO DAYSHIFT NURSE
--- NOTE | 2019-08-01 07:52 | NUR ---
ASSUMED CARE: REPORT RECEIVED FROM OSCAR Cleveland RN. ASSUMED CARE OF THIS PT AT APPROX 0700. ON ASSESSMENT, THE PT IS AWAKE, A&O. SHE IS PLEASANT & CONVERSANT. DENIES PAIN OR SOB. CURRENTLY ON 3L NC W/ O2 SATS AT GOAL OF 88-90%. LS ARE CLEAR, DIM IN BASES. PT HAS NO GI COMPLAINTS, BOWEL CARE COMPLETED PER WAFER LINE WORKER RN PT HAS NOT HAD BM IN MULTIPLE DAYS. TEMP BYRNE PATENT/ DRAINING DARK YELLOW-ORANGE URINE. SKIN CONDITION DOCUMENTED IN ASSESSMENT, SKIN CONDITION OVERALL IMPROVING. WILL CONTINUE TO MONITOR & UPDATE NEEDED.
--- NOTE | 2019-08-01 10:44 | NUR ---
OCCUPATIONAL THERAPY: OCCUPATIONAL THERAPY HAS BEEN AT BEDSIDE TO COMPLETE EVAL & TX. THE PT HAS REFUSED TO WORK W/ OT & STS "I NEED TO SAVE MY ENERGY FOR WALKING LATER." THIS RN HAS BEEN AT BEDSIDE TO REMIND THE PT THAT IT WILL LIKELY BE A COUPLE OF HOURS BEFORE STAFF IF ABLE TO HELP STAND/ AMBULATE HER. SHE STS SHE DOESN'T CARE & WOULD LIKE OT TO QUIT COMING TO SEE HER ALTOGETHER IT IS "POINTLESS." EDUCATION COMPLETED REGARDING THE CONTINUED NEED FOR BOTH OCCUPATIONAL & PHYSICAL THERAPIES TO IMPROVE PT STRENGTH SO THAT SHE MAY BE DISCHARGED HOME AT SOME POINT. SHE IS FRUSTRATED BUT AGREEABLE TO WORK W/ THERAPIES ONCE SHE HAS AMBULATED TO THE CHAIR.
--- NOTE | 2019-08-01 16:05 | NUR ---
PACKED PT UP: PT PENDING TNX FOR TO MEDICAL FLOOR. PACKED UP PT'S BELONGINGS/MEDICAL SUPPLIES, MEDICATIONS. PT TEARFUL DURING THE TIME THIS RN WAS AT THE BEDSIDE. WHEN INQUIRING WHY PT IS UPSET, PT WILL NOT TALK WITH THIS RN AND CONTINUES TO CRY.
--- NOTE | 2019-08-01 17:11 | NUR ---
PT ARRIVED FROM ICU AT APPROXIMATELY 1700. SHE IS ALERT AND ORIENTED BUT TEARFUL AND AVOIDS ANSWERING QUESTIONS AT THIS TIME. PT DECLINED ASSESSMENT AT THIS TIME. WILL CONTINUE TO MONITOR PT. WILL ALLOW PT TIME AND SPACE TO ADJUST TO NEW SURROUNDINGS.
--- NOTE | 2019-08-01 19:53 | NUR ---
SHIFT SUMMARY PT ARRIVED TO THE UNIT AT APPROXIMATELY 1645. SHE IS ALERT AND ORIENTED, SHE HAS BEEN TEARFUL AT TIMES. SHE DECLINED TO ALLOW THIS RN TO ASSESS HER WHEN SHE ARRIVED. PT HAS MANY QUESTIONS ABOUT THE CHANGE FROM THE ICU TO PCU UNITS. PT HAS BEEN EDUCATED AND REASSURED ABOUT CONCERNS. PT IS TOLERATING PO. SHE HAS DECLINED PAIN SINCE ARRIVAL. VSS. REPORT GIVEN TO JUANA GUEVARA RN.
--- NOTE | 2019-08-02 00:36 | NUR ---
ASSUMED CARE AT 1900. PLEASANT . CALM. EXPRESSES NEEDS W/ ALL CARE, AND INSTRUCTIONS. SKIN CARE W/ SURGICAL SPRAY AND EXTREME DRYING , NYSTATIN CREAM AND POWDER APPLIED. DENIES PAIN EXCEPT THROUGH SOME OF THE SKIN CLEANSING AND SKIN FOLD SPREADING. THEN NO PAIN WHEN NOT HAVING WOUND CARE. TURNS SELF WELL FOR MORE THOROUGH SKIN CARE . ENC TO TURN COUGH AND DEEP BREATHE. NO USE OF I.S. NOW. FEWA SNACKS TONIGHT. WILL REVIEW DISCHARGE PLANNING NOTES AND INFORM OF EACH PLAN. VERY TEARFUL DUE TO DISAPPOINTMENT OF HOW SMALL HER ROOM IS AND POOR THE VIEW IS, AND HOW THERE IS NOTHING GOOD ON THE TV. REPORTS EXTREME ANXIETY AND PLACE CALL TO MD TO GET ANTI ANXIETY MED . WHEN MED AVAILABLE, REPORTS SHE DOES NOT HAVE ANY ANXIETY. TALKING ON PHONE CONTINUOUSLY . 3 L CONT NC FOR WNL SAT. ANY EXERTION AND SATS DROP SHORTLY. AND QUICK RECOVERY FOR ACCEPTABLE PARAMETER OF 88-92%.
--- NOTE | 2019-08-02 05:35 | NUR ---
SHIFT SUMMARY. DID NOT DECIDE TO SLEEP UNTIL ABOUT 0430. BIPAP 11/03..INCREASED O2 BLEED IN TO 6 L, TO KEEP SAT > 88. KEPT ON 1 HR DUE TO TOO MUCH ALARMING WITH MASK AIR LEAK . ENC I.S. , REFUSED. NOLASCO RELIEF POST ADVIL.NO ACUTE COMPLAINTS OR ISSUES FROM ABOVE.
--- NOTE | 2019-08-02 08:05 | NUR ---
AM NOTE.... ASSUMED CARE OF PT APROX 0700, PT IS A&Ox4 AND WAS ADMITTED FOR RESP FAILURE. PT'S VS STABLE AT THIS TIME, PT IS ON 3L NC WITH O2 SATS >90%, PT IS TO USE BIPAP WHEN SLEEPING. PT TOLD THIS RN SHE WANTED TO GET UP AND WALK TODAY, THIS RN STATED THAT WHEN PT/OT CAME IN WE WOULD ALL WORK TOGETHER TO GET HER UP. PT THEN STATED "PT/OT ARE REFUSING TO WORK WITH ME, THATS WHY YOU HAVE TO DO IT." THIS RN THEN ASKED THE PT WHY PT/OT HAD REFUSED TO WORK WITH HER, THE PT THEN STATED "I DON'T KNOW WHY BUT THATS WHAT I WAS TOLD." PER THE NURSING NOTED ON 07/31 OT HAD ATTEMPTED TO WORK WITH THE PT AND IT WAS DOCUMENTED THAT THE PT HAD REFUSED TO WORK WITH THEM. PT HAS 2+PITTING EDEMA TO HER LEGS, ARMS AND PANNUS, L/S CLEAR T/O DIM IN THE BASES. BT PRESENT AND HYPERACTIVE. SEE PICTURES IN THE CHART OF PT'S WOUNDS. CALL LIGHT IN REACH WILL CONTINUE TO MONITOR.
--- NOTE | 2019-08-02 10:13 | NUR ---
PT REFUSED AM CBG CHECK.
--- NOTE | 2019-08-02 18:19 | NUR ---
SHIFT SUMMARY... NO ACUTE NEGATIVE CHANGES NOTED THIS SHIFT. PT HAS BEEN ON HER NC AT 2-3 T/O SHIFT WITH O2 SATS >90%. THE LIFT WAS USED TO GET THE PT UP INTO THE CHAIR, PT WAS ABLE TO SELF TRANSFER FROM THE CHAIR TO STANDING USING THE BEDRAILS TO HELP PULL HERSELF UP. PT WAS ABLE TO AMBULATE INDEPENDENTLY APROX 15 FEET. PT SAT UP IN THE CHAIR APROX 2 HOURS THEN WAS PUT BACK TO BED. PT'S VS HAVE BEEN STABLE T/O SHIFT. WOUND CARE WAS DONE TO THE PT'S FOLDS AND PANNUS AREA. BYRNE IS PATENT AND DRAINING DARK YELLOW URINE TO GRAVITY. PT HAS BEEN VERY EMOTIONAL TODAY ABOUT WANTING TO GO HOME. CALL LIGHT IN REACH WILL CONTINUE TO MONITOR.
--- NOTE | 2019-08-03 05:24 | NUR ---
SHIFT SUMMARY NO ACUTE CHANGES NOTED THROUGH THE NIGHT. PT REMAINS ON 3 L O2, O2 SATS >93%, PT REFUSING TO WEAR BIPAP WHILE SLEEPING DESPITE MULTIPLE ATTEMPTS BY RT DEPARTMENT TO ADJUST MASK FOR COMFORT. PT CONT TO C/O PAIN IN HER BACK TYLENOL & MOTRIN USE, SHE WAS OFFERED PRN ULTRAM AND HAS REFUSED. WOUNDS WERE CLEANSED AND DRESSED PER LOADING CHECKER. PT REFUSING REPOSTIONING. NO OTHER ACURTE CHANGES. CALL LIGHT IN REACH.
--- NOTE | 2019-08-03 07:47 | NUR ---
ASSUMED CARE AT 0700, REPORT FROM BETO MCLEAN. LAYING SUPINE IN BED. A/A/OX4. MOVING ARMS TO USE CELL PHONE WITHOUT DIFFICULTY. MORBIDLY OBESE AND UNABLE TO REPOSITION IN BED WITHOUT ASSISTANCE. REVIEWED PLAN OF CARE FOR DAY, DENIES NEEDS AT THIS TIME.
--- NOTE | 2019-08-03 12:14 | NUR ---
ASSISTED IN BED BATH. RED/YEASTY SKIN UNDER MULTIPLE SKIN FOLDS ON BREASTS, PANNUS, BILATERAL LEGS. NYSTATIN CREAM, MYCELEX POWDER USED TO ALL YEAST APPREARING AREAS. DISCUSSED NEED FOR REPOSITIONING IN BED, PT STATES SHE REPOSITIONS HERSELF AND REFUSES REPOSITIONING AT THIS TIME. CLEAN LIFT SHEET PLACED UNDER PT. QUARTER SIZED OPEN WOUND UNDER LEFT ABD SKIN SOLD. PACKED WITH CALCIUM ALGINATE AND ABD PAD PLACED.
--- NOTE | 2019-08-03 14:50 | NUR ---
PT REPORTING NAUSEA FROM [facility]. ORDER PLACED BY DR. ZAPATA FOR TUMS. PT REFUSES AND STATES IT "WON'T WORK". OFFERED ZOFRAN FOR NAUSEA ORDERED, PT REFUSES. STATES THERE'S "NO POINT IN TAKING SOMETHING THAT I KNOW WON'T WORK".
--- NOTE | 2019-08-03 16:50 | NUR ---
REFUSES AFTERNOON MEDS, STATES STILL FEELS NAUSEA AND CONTINUED TO HAVE ACID REFULX. OFFERED TUMS AND ZOFRAN THAT IS ORDERED, PT CONTINUES TO REFUSE.
--- NOTE | 2019-08-03 17:41 | NUR ---
SHIFT SUMMARY: A/A/OX4 THROUGHOUT SHIFT. REMAINS ON 3L O2 VIA NC. INTERMITANT O2 OFF WHEN PT REPOSITIONING WITH SATS DROPPING TO 87%. BED BATH DURING SHIFT WITH WOUND CARE AND NYSTATIN ON YEAST AREAS. BYRNE IN PLACE DRAINING ROMEO URINE. UP TO RECLINER WITH RICARDO THIS AFTERNOON AND STOOD TO TRANSFER TO WHEEL CHAIR FOR CHAIR FITTING BY [employer]. REPOSITIONS IN BED AND REFUSES TO HAVE AIDE ASSIST. MULTIPLE DEMANDS DURING SHIFT WITH AID AND RN. JUSTICE [employer] DEPUTY CLERK TO ROOM DURING AFTERNOON TO DISCUSS DELAYS ON HOME DELIVERY OF HOSPITAL BED. PT STATES SHE THINKS SHE CAN GO HOME WITHOUT ONE AND WILL BE ABLE TO REPOSITION AND GET HERSELF OUT OF BED AT HOME. VSS, WILL CONTINUE TO MONITOR UNTIL CHANGE OF SHIFT.
[2019-08-04 04:31] LABS: PO2 Arterial 86.7 mmHg (80-100); pH Blood Arterial 7.32 (7.35-7.45)
[2019-08-04 04:32] LABS: PCO2 Arterial 80.8 mmHg (35-45)
--- NOTE | 2019-08-04 06:06 | NUR ---
SHIFT SUMMARY NO ACUTE CHANGES THROUGH THE NIGHT. SLEEP STUDY COMPLETED BY RESP CARE. SKIN CARE COMPLETED, NYSTATIN POWDER AND CLEAN ABD PADS APPLIED TO MOIST AREAS. PT REFUSED Q2 HR REPOSITIONING. BYRNE REMAINS PATENT, DRAINING ROMEO URINE. TOLERATING PO INTAKE, PT STATES SHE HAS SLIGHT NAUSEA/INDIGESTION BUT REFUSES TUMS/ZOFRAN. MOTRIN & TYLENOL GIVEN FOR PAIN PER PT REQUEST. CALL LIGHT IN REACH, [facility].
--- NOTE | 2019-08-04 09:24 | NUR ---
pt laying in bed watching tv, a/ox3, pleasant and cooperative with care, follows commands well, denies pain or needs at this time, lungs are clear in upper diez, dim in bases, resp even and unlabored, no cough noted, hrr, edema noted to b/l le, cap refill <3sec, vs stable, afebrile, iv site is power glide to renny, site is clear and patent, btx4, abd flat soft nontender, lopez cath draining orange urine, skin has multiple, wounds, see chart, jessie, is ambulatory once up, sonia, call light in reach.
--- NOTE | 2019-08-04 12:11 | NUR ---
pt laying in bed wanting to be repositioned, her nystatin powerder was applied and wound to left panus was repacked, using the lift we pulled her up in bed. no further needs at this time. call light in reach.
--- NOTE | 2019-08-04 16:50 | NUR ---
PT SPEAKING ON THE PHONE, STATES HER PAIN IS BETTER, WAS WILLING TO TAKE HER THYROID PILL, WAS JUST TURNED, NO FURTHER COMPLAINTS OR NEEDS AT THIS TIME. CALL LIGHT IN REACH.
--- NOTE | 2019-08-04 18:14 | NUR ---
pt speaking on the phone to her family, states she is doing ok at this time, no acute changes or needs, call light in reach.
--- NOTE | 2019-08-05 05:13 | NUR ---
SHIFT SUMMARY NO ACUTE CHANGES NOTED THROUGH THE NIGHT. PT HAS COMPLETED HER SLEEP STUDY WITH RT. WOUNDS CLEANSED WITH WOUND IT ARCHITECTURE ANALYST, NYSTATIN POWDER APPLIED, PT HAS BEEN VERY TEARFUL TONIGHT HAS EXPRESSED MISSING HER KIDS AND THAT SHE FEELS LIKE "THE RIBE[place] ARE CLOSING IN ON HER" PT WAS OFFERED HER ANXIETY MEDICATION BUT SHE REFUSED. SHE WAS EDUCATED ON SHORT TERM USE OF A POSSIBLE ANTIDEPRESSANT AND ENC TO SPEAK WITH MD ABOUT COVERAGE WHEN D/C. PT DID NOT REFUSE BUT WAS APPREHENSIVE TO ADMIT THE NEED FOR HELP. CALL LIGHT REMAINS IN REACH, WCTM .
[2019-08-05 05:37] LABS: PCO2 Arterial 71.4 mmHg (35-45); PO2 Arterial 71.1 mmHg (80-100); pH Blood Arterial 7.37 (7.35-7.45)
--- NOTE | 2019-08-05 09:40 | NUR ---
ASSUMED CARE: REPORT RECIEVED FROM HIRA PÉREZ. ELECTRICAL DESIGNER AND ADULT MINISTRIES DIRECTOR AT BEDSIDE USING LIFT FOR REPOSITIONING UPON ARRIVAL IN ROOM. NO FURTHER NEEDS OR CONCERNS AT THIS TIME.
--- NOTE | 2019-08-05 18:03 | NUR ---
SHIFT SUMMARY: PT RESTING IN BED, BED BATH COMPLETED AND PT ASSISTED WITH ROLLING SIDE TO SIDE. LIFT NEEDED FOR GET TO CHAIR AND PT AMBULATED AROUND ROOM. PLAN IS FOR DC HOME ONCE MEDICAL SUPPLIES ARRIVE. MEDICATED FOR GENERAL PAIN X2. NO ACUTE NEEDS OR CONCERNS.
--- NOTE | 2019-08-06 07:18 | NUR ---
SHIFT SUMMARY PATIENT PLEASENT THROUGHOUT THE NIGHT. PATIENT APPEARED TO BE ABLE TO MOVE SELF ABOUT IN BED LAST NIGHT. PATIENT USED HER BIPAP FOR SEVERAL HOURS BUT THEN REFUSED TO USE IT FOR THE REST OF THE MORNING. PATIENT NAPPED ON AND OFF THROUGHOUT THE NIGHT. PATIENT REPORTS THAT THE BIPAP MAKES HER FEEL VERY CLAUSTROPHOBIC. CONTINUOUS BIOX IN PLACE. PATIENT ON 3L WHEN OFF BIPAP. PATIENT MEDICATED FOR PAIN PER EMAR. REPORT GIVEN TO ONCOMING RN.
--- NOTE | 2019-08-06 07:33 | NUR ---
ASSUMED CARE: PT RESTING QUIETLY AT THIS TIME. NO ACUTE NEEDS OR CONCERNS IDENTIFIED.
--- NOTE | 2019-08-06 09:55 | NUR ---
CALL TO DR ZAPATA REGARDING PT'S BLEEDING MOLE ON CHIN. PT STATES IT HAS BEEN BLEEDING SINCE BEFORE ARRIVAL BUT HAS GOTTEN WORSE SINCE BEING ON BLOOD THINNERS. DOES NOT WISH TO DC BLOOD THINNERS DUE TO PT'S HIGH RISK FOR BLOOD CLOTS. STATES TO PLACE PRESSURE DRESSING AND THAT SHE WILL BE BY TO SEE PT TODAY OR TOMORROW TO EVALUATE FURTHER.
--- NOTE | 2019-08-06 17:36 | NUR ---
SHIFT SUMMARY: PT RESTING IN BED. BEDBATH COMPLETE AND UP IN CHAIR ONCE THIS SHIFT. AWAITING MEDICAL EQUIPMENT FOR DISCHARGE. DENIES NEEDS OR CONCERNS AT THIS TIME.
--- NOTE | 2019-08-06 20:10 | NUR ---
UPDATE PATIENT REPORTS FEELING LIKE HER BRAIN IS "VERY FOGGY." PATIENT PLACED ON HER BIPAP MASK AND EDUCATED ON IMPORTANCE OF WEARING IT WHILE SHE SLEPT. PATIENT AGREES TO WEAR THE MASK FOR THE NEXT LITTLE BIT TO SEE IF IT WILL HELP HER FEEL BETTER. WILL CONTINUE TO MONITOR PATIENT.
--- NOTE | 2019-08-06 21:57 | NUR ---
UPDATE PATIENT VERY TEARFUL AND ANGRY THAT SHE WAS NOT INFORMED THAT HER IV LASIX WAS STOPPED. PATIENT VERY FRUSTRATED AND STATING THAT SHE DOES NOT FEEL THERE IS A REASON FOR HER TO BE HER ANYMORE. PATIENT PROVIDED WITH SUPPORT AND EDUCATION. WILL CONTINUE TO MONITOR.
--- NOTE | 2019-08-07 05:54 | NUR ---
SHIFT SUMMARY PATIENT EXPRESSING DESIRE TO BE MORE INFORMED ABOUT HER PLAN OF CARE. PATIENT PROVIDED WITH PRINT OUT EDUCATION ON CHF TO READ. PATIENT WAS ABLE TO SETTLE DOWN AND APPEARED TO SLEEP WELL FOR SEVERAL HOURS TONIGHT. PATIENT USED HER BIPAP FOR APROX 3 HOURS COMBINED LAST NIGHT. PATIENT REPORTS SHE DOES NOT LIKE THE BIPAP. PATIENT ENCOURAGED TO WEAR BIPAP WHENEVER ALSEEP, RESPIRTORY THERAPY CAME TO PROVIDE PATIENT EDUCATION ON THE BIPAP WELL. PATIENT APPEARS TO BE ABLE TO SHIFT SELF ABOUT IN THE BED ON HER OWN. PATIENT ON 3L O2 WHEN OFF BIPAP. CONTINUOUS BIOX IN PLACE. PATIENT REPORTING THAT SHE WANTS TO GO HOME AND, AT THIS TIME, PATIENT IS NOT SURE SHE WANTS TO WAIT FOR HER MEDICAL EQUIPMENT. WILL CONTINUE TO MONITOR PATIENT AND REPORT TO ONCOMING RN.
--- NOTE | 2019-08-07 10:07 | NUR ---
WOUND PHOTO WOUND PICTURES WERE TAKEN UPON ADMIT. NO REPEAT WOUND PHOTOS HAVE BEEN PLACED IN PT CHART. ASKED PT FOR PERMISSION TO TAKE PHOTO'S OF HER SKIN/WOUNDS. PT REFUSED. CONTINUE POT.
--- NOTE | 2019-08-07 11:33 | NUR ---
NOTE PT TALKING ON THE PHONE WITH FAMILY. SKIN CARE DONE. SEE WOUND CARE CHARTING FOR DETAILS. PT DENIED PAIN. GOOD APPETITE. SHE IS ABLE TO MOVE HERSELF IN BED. PLAN TO GET OOB WITH CEILING LIFT FOR LUNCH TODAY. PT WANTS POWER GLIDE OUT. WAITING UNTIL SHE IS OFF THE PHONE. CONTINUE POT.
--- NOTE | 2019-08-07 11:46 | NUR ---
RIGHT CHIN WOUND DR ZAPATA CAME AND ASSESSED IT D/T CONTINUED BLEEDING FROM SITE. PT RELATED THAT SHE HAD "POPPED IT WITH A NEEDLE" THE DAY BEFORE SHE CAME IN. DR ZAPATA STATED THAT IT WAS A SKIN TAG. A CLOTTING PAD(NU) WAS APPLIED. PT CONTINUES TO "SQUISH IT", POCK IT AND PLAY WITH IT. REMINDED REPEATEDLY TO LEAVE IT ALONE SO IT CAN START TO HEAL. LARGE RED DIOMEDE NOTED ON NU. CONTINUE POT.
--- NOTE | 2019-08-07 15:00 | NUR ---
SKIN CARE PT REFUSED SKIN FOLD CARE. SHE REFUSED NYSTATIN POWDER AND CREAM AT THIS TIME. PT HAS BEEN FOUND SQUEEZING, POKING AND PICKING AT THE NU DRESSING ON HER NECK. THE SKIN IS NOW RED AND ITCHY. CHANGED THE TAPE FROM OPSITE TO MEFEX TO TRY AND HELP WITHTHE ITCHING. CONTINUE POT.
--- NOTE | 2019-08-07 17:09 | NUR ---
CEILING LIFT CEILING LIFT IN ROOM NOT WORKING. NEITHER LIFT IS CHARGING. CALLED MAINTENANCE. NO ANSWER AT 1200. CALLED MULTIPLE TIMES THROUGH THE AFTERNOON. NO ANSWER AND ANSWERING MACHINE NOT ON. CONTINUE POT.
--- NOTE | 2019-08-07 21:50 | NUR ---
UPDATE PATIENT ON THE PHONE MOST OF THE NIGHT SO FAR. PATIENT DID ALLOW SKIN CARE TO BE DONE BUT CONTINUES TO REFUSE PICTURES OF HER SKIN AND WOUNDS TO BE TAKEN AGAIN. PATIENT PICKING AT THE NEPTUINE PATCH ON HER RIGHT CHIN AND THEN REFUSED TO WEAR IT ANY LONGER STATING, "ITS TOO ITCHY." CLOTH DOT PLACED ON CHIN INSTEAD.
--- NOTE | 2019-08-07 23:12 | NUR ---
NO IV ACCESS PATIENT DOES NOT HAVE IV ACCESS AT THIS TIME AND IS REFUSING TO HAVE ANY MORE IV'S PLACED. NURSE PRACTIONER CLARISSA RODRIGUEZ AWARE.
--- NOTE | 2019-08-08 05:42 | NUR ---
SHIFT SUMMARY PATIENT HAS BEEN PLEASENT LAST NIGHT. PATIENT APPEARED TO SLEEP WELL THROUGHOUT MOST OF THE NIGHT. PATIENT APPEARED TO SLEEP WITH HER BIPAP IN PLACE FOR APPROX [address] CONT[address]UOUS BIOX IN PLACE. PATIENT ABLE TO MOVE SELF ABOUT IN BED. PATIENT REPORTS THAT SHE IS PLANNING ON TYING STRING AROUND THE SKIN FALP ON HER CHIN WHEN SHE GETS HOME, "TO KILL IT, AND REMOVE IT." PATIENT ENCOURAGED NOT TOO AND TO POSSIBLY SEE A EMBEDDED SYSTEMS SOFTWARE ENGINEER FOR FURTHER ASSESSMENT. PATIENT CONTINUES TO STATE THAT SHE WILL TIE STRING ON IT TO REMOVE IT. WILL CONTINUE TO MONITOR PATIENT AND REPORT TO ONCOMING RN.
--- NOTE | 2019-08-08 21:27 | NUR ---
ASSUMED CARE OF PT, REPORT RCV'D FROM BETO CRAIG. PT ALERT AND ORIENTED, PLEASANT AND COOPERATIVE WITH CARE. PT ABLE TO ASSIST WITH CARE. SKIN ASSESSED AND CARE PROVIDED, NYSTATIN POWDER AND CREAM APPLIED NEEDED. PT SATS 88-90% ON 3L NC. WILL USE BIPAP PRN AND NOC. BRYNE PATENT AND DRAINING. PT DENIES NEEDS AT THIS TIME. SEE FULL SHIFT ASSESSMENT.
--- NOTE | 2019-08-09 05:28 | NUR ---
SHIFT SUMMARY NO ACUTE CHANGES OVERNIGHT. PT SLEPT WELL ON BIPAP, CONTINUES TO ASSIST WITH CARE NEEDED. PT DENIED ANY NEEDS T/O SHIFT. VSS. WILL REPORT TO DAYSHIFT NURSE.
--- NOTE | 2019-08-09 19:31 | NUR ---
SHIFT SUMMARY PT A&Ox4; EMOTIONAL LABILE DURING SHIFT. PT IN BED FOR MAJORITY OF SHIFT, UP IN CHAIR FOR SHORT WHILE THIS AFTERNOON, USING LIFTS. PT REPORTING SPASMS TO BLADDER, MEDICATING WITH SCHEDULE PYRIDIUM AND CHECKED PLACEMENT OF CATHETER; SPASMS/CRAMPING INTERMITTENT. SPO2 >90% ON 3L O2 VIA NC, REPORTS SOB WITH ACTIVITY. PT DENEIS CHEST PAIN, NAUSEA AND DIZZINESS. VSS. NO OTHER ACUTE CHANGES NOTED DURING SHIFT. REPORT GIVEN TO ONCOMING RN.
--- NOTE | 2019-08-09 20:00 | NUR ---
ASSUMED CARE AT 1930 IN BEDSIDE REPORT AND REVIEWED IMMEDIATE NEEDS. NO SKIN CARE OR FULL SYSTEMS ASSESSMENT DONE AT THIS TIME. EASILY IRRITATED AND REPORTS WITH IN AN HOUR BLADDER SPASMS. ROUTINE MEDS AND MOTRIN GIVEN . REPORT TO ELIJAH PÉREZ TO ASSUME CARE AT 2200
--- NOTE | 2019-08-10 05:11 | NUR ---
SHIFT SUMMARY: PT IS ALERT AND ORIENTED. PT IS CALM AND COOPERATIVE WITH CARE. PT CALLS APPROPRIATELY. PT REQUIRES A LIFT TO MOVE FROM THE BED, NOT UP OVERNIGHT. PT REPORTS BLADDER SPASMS WHICH WERE PAINFUL AT THE START OF THE NIGHT, GAVE PRN TRAMADOL, PT REPORTED RELIEF. PT REPORTS SOB UPON EXERTION, 3 L O2 VIA NC, BIPAP WHILE SLEEPING KEEPING SATS > 90%. PT DENIES NAUSEA AND VOMITING. NO ACUTE CHANGES THIS SHIFT. WILL REPORT TO DAY NURSE.
--- NOTE | 2019-08-10 18:09 | NUR ---
SHIFT NOTE PT HAS BEEN RESTING WELL IN BED T/O THE DAY. BYRNE TRAINING TO GRAVITY. PT WAS UP TO BEDSIDE CHAIR TODAY VIA RICARDO LIFT. PT DID WALK AROUND ROOM TODAY, WITH STEADY GAIT WITHOUT WALKER. PT A/O X4, ANSWERING QUESTIONS APPROPRIATELY IN FULL SENTENCES. PT HAD A BED BATH TODAY, PT WAS REFUSING FOR FOLDS TO BE CLEANED AND INSPECTED SHE STATED THEY HAD BEEN CLEANED BY HER. PT WITH REDNESS, SWELLING, YEAST ODOR TO SKIN FOLDS. FOLDS ARE CLEANED AND INSPECTED, DRIED, AND NYSTATIN MORRIS PLACED.
--- NOTE | 2019-08-11 07:46 | NUR ---
SHIFT SUMMARY PATIENT PLEASENT THROUGHOUT THE NIGHT. PATIENT NOT VERY COMPLIENT WITH BIPAP USE LAST NIGHT. PATIENT DID USE IT FOR APPROX 2 HOURS LAST NIGHT, PATIENT ON 3L O2 WHEN OFF BIPAP. PATIENT APPEARED TO NAP ON AND OFF THROUGHOUT THE NIGHT. SKIN CARE PROVIDED. TURNING ENCOURAGED, PATIENT ABLE TO MOVE SELF ABOUT IN BED. PATIENT CONTINUES TO REFUSE TO HAVE IV PLACED. REPORT GIVEN TO ONCOMING RN.
--- NOTE | 2019-08-11 18:17 | NUR ---
PCU DAYSHIFT SUMMARY PATIENT ALERT AND ORIENTED X4. RESP E/U ON 3 LPM NC. LUNG SOUNDS CLEAR TO DIM. MEDICAL STATUS NO TELE. NO ACUTE CHANGES T/O SHIFT. WOUNDS REDRESSED THIS SHIFT AFTER BEDBATH AND LINEN CHANGE. WILL CONTIUE TO MONITOR AND REPORT TO NOC SHIFT RN.
--- NOTE | 2019-08-12 07:14 | NUR ---
SHIFT SUMMARY PATIENT PLEASENT THROUGHOUT THE NIGHT. PATIENT ABLE TO MOVE SELF ABOUT IN BED. PATIENT APPEARED TO NAP ON AND OFF THROUGHOUT THE NIGHT. PATIENT HAD SOME COMPLAINTS OF FOGGY VISION AT THE BEGINNING BUT SHE STATED IT HAD IMPROVED AFTER USEING THE BIPAP FOR A LITTLE WHILE EARLIER IN THE EVENING. PATIENT ENCOURAGED TO USE BIPAP THROUGHOUT THE NIGHT. PATIENT ONLY APPEARED TO USE BIPAP FOR APPROX ONE AND HALF HOURS LAST NIGHT. PATIENT ON 3L O2 WHILE AWAKE. HOWEVER, SEVERAL TIMES STAFF ENTERED ROOM TO FIND PATIENT HAD REMOVED HER OXYGEN OR BIPAP IT WAS REPLACED EACH TIME AND PATIENT REMINDED TO KEEP IT ON BUT PATIENT CONTINUED TO OCCATIONALLY REMOVE THEM. THIS MORNING PATIENT STARTED TO COMPLAIN OF FOGGY VISION AGAIN, PATIENT PLACED BACK ON BIPAP AT APPROX 0645 THIS AM. REPORT GIVEN TO ONCPOONAM PÉREZ.
--- NOTE | 2019-08-12 07:41 | NUR ---
ASSUMED CARE AT 0700. REPORT FROM BETO RESTREPO. LAYING IN BED AT 30 DEGREE INCLINE. WEARING BIPAP AT THIS TIME. A/A/OX4. PLAN OF CARE REVIEWED FOR DAY. REQUESTS COFFEE THAT WAS PROVIDED. WILL CONTINUE TO MONITOR.
--- NOTE | 2019-08-12 17:42 | NUR ---
SHIFT SUMMARY: A/A/0X4 DURING SHIFT. 3L O2 VIA NC. ASSISTED WITH BED BATH AND LINEN CHANGE. WOUND CARE PROVIDED AND DOCUMENTED UNDER SKIN ASSESMENT. BYRNE CATH IN PLACE DRAINING ROMEO COLORED URINE. NO ACUTE CHANGES DURING SHIFT. WILL CONTINUE TO MONITOR UNTIL CHANGE OF SHIFT.
--- NOTE | 2019-08-13 05:49 | NUR ---
SHIFT SUMMARY PT MEDICAL NO TELE STATUS. A&O X4. VSS. NO EVENTS OVERNIGHT. SPO2 > 92% ON 3L NC TITRATED TO 2L NC THIS SHIFT. PT ABLE TO REPOSITION SELF IN BED, REFUSING SOME REPOSITIONING OFFERS BY STAFF. FREQUENT REPOSITIONING ENCOURAGED. SKIN CARE PROVIDED. BYRNE CATH PATENT AND DRAINING ORANGE/RED URINE. PT C/O "BLADDER SPASMS" INTERMITTENTLY THIS SHIFT, MEDICATED PER PT REQEST/EMAR X1 THIS SHIFT ALONG W/ WARM BLANKET DRAPED ACROSS PT ABD. WILL CONTINUE TO MONITOR & PROVIDE CARE UNTIL REPORT OFF TO DAY SHIFT RN.
--- NOTE | 2019-08-13 07:04 | NUR ---
ASSUMED CARE: PT RESTING QUIETLY AT THIS TIME. BIPAP IN PLACE. NO ACUTE NEEDS OR CONCERNS AT THIS TIME.
--- NOTE | 2019-08-13 09:30 | NUR ---
DR HASTINGS AWARE PT HAS NOT HAD BM FOR SEVERAL DAYS. NEW MEDS ORDERED FOR BM. WILL ADMINISTER ABLE
--- NOTE | 2019-08-13 10:50 | NUR ---
MEPILEX TO RIGHT GLUT CHANGED DUE TO OPEN EXCORIATION. NOTED RED SORE THAT WAS NEW SINCE LAST WEEK WHEN THIS RN CARED FOR PT LAST. PT STATES IT IS FROM BYRNE CLIP. RED BUT NOT OPEN.
--- NOTE | 2019-08-13 11:46 | NUR ---
PT COMMENTED ABOUT SORE ON CHIN. DR HASTINGS CAME TO EXAMINE IT. STATES PT WILL HAVE TO FOLLOW UP OUT PT AND ENCOURAGED PT TO NOT REMOVE ON HER OWN
--- NOTE | 2019-08-13 12:19 | NUR ---
REDDENED AREAS BEHIND BILATERAL EARS. BEAN FOAM APPLIED. WHILE AT BEDSIDE PT EXPRESSED CONCERN ABOUT PICTURES THAT WERE TAKEN OF WOUNDS WHEN SHE FIRST ARRIVED. SHE STATES SHE TOLD STAFF NO AND PICTURES WERE STILL TAKEN. WANTS PICTURES REMOVED FROM CHART. SPOKE WITH COMPOSING ROOM MACHINIST APPRENTICE. MESSAGE LEFT WITH PT ADVOCATE. PT AWARE WHY PHOTOS WERE TAKEN BUT UPSET THAT SHE SAID NO AND THEY WERE STILL DONE. AWARE THAT PT ADVOCATE NOT HERE UNTIL THURSDAY.
--- NOTE | 2019-08-13 18:10 | NUR ---
SHIFT SUMMARY: PT SINUS TACH AT 104. SOB ON EXERTION. COUGHING UP THIN YELLOW/WHITE SPUTUM. AWAITING ACCEPTABLE SAMPLE. DENIES NEEDS OR CONCERNS AT THIS TIME.
--- NOTE | 2019-08-13 18:12 | NUR ---
SHIFT SUMMARY: PT HAS BEEN RESTING IN BED, DECLINED GETTING OUT OF BED TO CHAIR. MEDICATED FOR BM. DECLINED FURTHER BM MEDS. STATES SHE FEELS LIKE BM IS IMMINENT. SKIN CARE AND BED BATH COMPLETED THIS SHIFT. PT DECLINED NEW PICTURES. NO ACUTE NEEDS OR CONCERNS AT THIS TIME.
--- NOTE | 2019-08-14 06:09 | NUR ---
SHIFT SUMMARY NO ACUTE CHANGES NOTED THROUGH THE NIGHT. WOUNDS CLEANSED & SKIN CARE PROVIDED, VSS, TOLERATING PO INTAKE, OCCASIONAL NAUSEA NOTED, PO ZOFRAN GIVEN, REFUSED TO WEAR BIPAP WHILE SLEEPING. PT EDUCATION PROVIDED. WCTM, CALL LIGHT IN REACH
--- NOTE | 2019-08-14 08:18 | NUR ---
AM BLOOD SUGAR PT REFUSED AM BLOOD SUGAR. CONTINUE POT.
--- NOTE | 2019-08-14 10:21 | NUR ---
MORNING MEDICATIONS PT REFUSED MIRALAX, PROBIOTIC, GABAPENTIN THIS AM. SHE STATED THAT THEY MAKE HER SICK TO HER STOMACH. CONTINUE POT.
--- NOTE | 2019-08-14 12:18 | NUR ---
skin care Pt has refused morning skin care. She isn't feeling good. Continue pot.
--- NOTE | 2019-08-14 21:33 | NUR ---
ASSUMED CARE OF PATIENT AT [facility] FROM RYANN Brown RN PATIENT ALERT AND ORIENTED X4. PATIENT REPORTS BLADDER SPASMS AND ABDOMINAL CRAMPS FOR THE PAST THREE DAYS; REPORTS INCREASED AFTER HAVING BM TODAY; MEDICATED PER EMAR FOR PAIN; WARM BLANKETS GIVEN; REFUSED HEATING PAD. PATIENT DENIES NUMBNESS, TINGLING, DIZZINESS OR NAUSEA. PATIENT TURNS SELF IN BED; REQUIRES SKIN CARE. MEDICAL NO TELE STATUS; OXYGEN SATURATION ABOVE 90% ON 2LPM VIA NC (BASELINE). NO IV ACCESS. URINARY CATH DRAINING DARK ORANGE URINE. PATIENT CURRENTLY RESTING IN BED; CALL LIGHT IN REACH; BED IN LOWEST POSISTION; BED ALARM ON; WILL CONTINUE TO MONITOR AND ASSESS UNTIL END OF SHIFT
--- NOTE | 2019-08-15 06:16 | NUR ---
NO ACUTE CHANGES TO REPORT. PATIENT SLEPT ABOUT SEVEN HOURS. WILL CONTINUE TO MONTITOR AND ASSESS UNTIL END OF SHIFT.
--- NOTE | 2019-08-15 12:19 | NUR ---
REFUSED SKIN CARE PT HAS REFUSED SKIN/FOLD CARE AT 0900 AND AT 1200. UNABLE TO ADMINISTER NYSTATIN PER ORDER. PT C/O OF FEELING SICK TO HER STOMACH. ZOFRAN GIVEN EARLIER. CONTINUE POT.
--- NOTE | 2019-08-15 14:28 | NUR ---
NOTE PT REFUSED 1400 MEDICATIONS. SHE WANTS TO SLEEP. CONTINUE POT.
--- NOTE | 2019-08-15 19:47 | NUR ---
MAONING W/ NAUSEA AND GI UPSET/ ZOFAN GIVEN. REPORTS GRAM CRACKER MADE STOMACH WORSE. FLATUS ON BED HORNE . REFUSED ANY FLUIDS. REPORTS BLADDER SPASM W/ TRYING TO HAVE BM
--- NOTE | 2019-08-16 05:53 | NUR ---
SHIFT SUMMARY. REPORTS NAUSEA ALL NOC. REFUSED ALL PO MEDS . ZOFRAN SL Q 4 HR. FEW POP SICLES TAKEN. ALLOWED THOROUGH SKIN CARE POST HUGE SOFT BROWN BM ON BED HORNE. NYSTATIN POWDERS. ENC TO TURN SELF AND REPOSITION SELF AND FAIRLY GOOD EFFORT.ENC TO COUGH AND DEEP BREATHE . FEW CRACKERS TAKEN. NO ACUTE PAIN EXCEPT ONE X BLADDER SPASM AND SUBSIDED. MOAMS ALOT WHEN AWAKE AND DISCUSSING NAUSEA. UNABLE TO WEAR BIPAP ALL NOC W/ NAUSEA . NO ATTEMPT. LEFT O2 PER NC AT 3 L
--- NOTE | 2019-08-16 18:20 | NUR ---
PCU (MEDICAL STATUS) DAYSHIFT SUMMARY PATIENT ALERT AND ORIENTED X4 T/O SHIFT. PATIENT UP TO CHAIR X1 THIS SHIFT - TOLERATED TRANSFER WELL ONCE LIFT USED TO AID PATIENT OUT OF BED. PATIENT REPORTS ONGOING BLADDER SPASMS - EDUCATED TO BYRNE AND D/C'ING BYRNE TO AID IN HELPING BLADDER SPASMS - PATIENT DOES NOT WANT BYRNE OUT UNTIL DISCHARGE IT IS HARD FOR HER TO GET IN AND OUT OF BARIATRIC BED. PATIENT REMAINS ON 2.5 LPM NC T/O SHIFT. LUNG SOUNDS CLEAR TO DIM. VSS. NO ACUTE CHANGES NOTED T/O SHIFT. WILL CONTINUE TO MONITOR AND REPORT TO NOC SHIFT RN, PHILIP Heard
--- NOTE | 2019-08-17 05:56 | NUR ---
SHIFT SUMMARY PT MEDICAL NO TELE STATUS. A&O X4. VSS. NO EVENTS OVER NIGHT. SPO2 > 92% ON 2L NC. PT REFUSING BIPAP D/T REPORT OF NAUSEA. PT MEDICATED FOR NAUSEA X2 THIS SHIFT PER PT REQUEST/EMAR. PT C/O BLADDER SPASMS, MEDICATED PER EMAR X1 THIS SHIFT. BYRNE CATH PATENT AND DRAINING ORANGE URINE. PT REPOSITIONING SELF IN BED BUT REPORTS "I CAN'T LAY ON MY SIDE FOR LONG BECAUSE I CAN'T BREATHE." PT LAYING ON BACK MAJORITY OF SHIFT PER PT PREFERENCE. PT REMINDED OF NEED FOR FREQUENT REPOSITIONING FOR SKIN HEALTH. WILL CONTINUE TO MONITOR AND PROVIDE CARE UNTIL REPORT OFF TO DAY SHIFT RN.
--- NOTE | 2019-08-17 07:46 | NUR ---
ASSUMED CARE AT 0700 FROM BETO MEDINA. LAYING IN BED SUPINE. 2L 02 VIA PA. BYRNE CATH DRAINING ROMEO CLEAR URINE. A/A/OX4, REPOSITIONS SELF IN BED. UPDATED ON PLAN OF CARE FOR DAY, WILL CONTINUE TO MONITOR.
--- NOTE | 2019-08-17 18:22 | NUR ---
SHIFT SUMMARY; NO ACUTE CHANGES DURING SHIFT. CONTINUES TO WAIT FOR HOME HOSPITAL BED PRIOR TO DISCHARGE, EXPECTED DELIVERY DATE 08/18/19. BYRNE IN PLACE DRAIING STRAW COLORED URINE. BED BATH TODAY WITH LINEN CHANGE. SKIN ASSESSED AND CONTINUED NYSTATIN POWDER UNDER SKIN FOLDS. SMALL OPEN SORE COVERED WITH CLOTH DOT DRESSING UNDER FOLD TO LEFT SIDE OF ABDOMEN. MEPILEX IN PLACE TO RIGHT CALF AREA. REPOSITIONS SELF THROUGHOUT DAY. WILL CONTINUE TO MONITOR UNTIL CHANGE OF SHIFT.
--- NOTE | 2019-08-17 21:39 | NUR ---
NAUSEA / CALL TO CASE FILLER PT C/O NAUSEA DESPITE RECENT PRN TREATMENT PER EMAR. CALL TO CASE FILLER LISHA W/ NEW ORDER FOR PO PRN REGLAN, SEE EMAR. WILL CONTINUE TO MONITOR.
--- NOTE | 2019-08-18 06:05 | NUR ---
SHIFT SUMMARY PT A&O X4. VSS. PT REFUSING NOC MEDS THIS SHIFT D/T NAUSEA, STATING "MAYBE LATER" BUT DID NOT TAKE SCHEDULED 2100 MEDS. PRN NAUSEA MEDICATIONS GIVEN PER EMAR & PT REQUEST. PT REPORTS SOME IMPROVEMENT W/ PO REGLAN VS ZOFRAN. PT AWAITING DISCHARGE HOME ONCE HOME BARIATRIC BED IS DELIVERED. WILL CONTINUE TO MONITOR AND PROVIDE CARE UNTIL REPORT OFF TO DAY SHIFT RN.
--- NOTE | 2019-08-18 07:16 | NUR ---
ASSUMED CARE AT 0700, REPORT FROM ADAM. LAYING SUPINE IN BED TALKING ON PHONE, NO APPARENT DISTRESS, WILL CONTINUE TO MONITOR.
--- NOTE | 2019-08-18 17:50 | NUR ---
SHIFT SUMMARY: A/A/OX4 THROUGHOUT SHIFT. C/O NAUSEA DURING MOST OF DAY, ANTI NAUSEA MEDS SHIFT BY PREVIOUS NURSE PRIOR TO SHIFT CHANGE. REFUSED PO MEDS UNTIL LATE AFTERNOON. OFFERED ANTI NAUSEA MEDS MULTIPLE TIMES DURING SHIFT WITH PT REFUSING. STATES NAUSEA RESOLVED THIS EVENING, EATING WITHOUT EMESIS. BED BATH AND LINEN CHANGE TODAY. WOUND CARE AND ANTI FUNGAL POWDER TO SKIN FOLDS. MULTIPLE REPOSITIONING THROUGHOUT DAY. WAITING ON HOME HOSPITAL BED DELIVERY PRIOR TO DISCHAGE TO HOME. WILL CONTINUE TO MONITOR UNTIL SHIFT CHANGE.
--- NOTE | 2019-08-18 19:57 | NUR ---
CARE ASSUMPTION PT MEDICAL NO TELE STATUS. A&O X4. VSS. PT C/O NAUSEA BUT IS REFUSING ANTIN[place] MEDICATION OFFERED AT THIS TIME WELL OTHER APPROACHES SUCH SEIERRA MIST, SALTINES, OR SOMETHING ELSE THAT MIGHT HELP HER FEEL BETER. PT THEN BECAME EMOTIONAL IN RM STATING SHE JUST WANTS TO GO HOME AND SPEND TIME W/ HER KIDS. PT STATES SHE WANTS TO GO HOME TOMORROW WHETHER OR NOT HER HOME BED IS DELIVERED OR NOT. WILL CONTINUE TO MONITOR AND PROVIDE CARE.
--- NOTE | 2019-08-19 06:51 | NUR ---
SHIFT SUMMARY NO CHANGES THIS SHIFT. PT REFUSING MAJORITY OF MEDICATIONS. PT C/O BLADDER SPASMS BUT REFUSED SCHEDULED PYRIDIUM THIS SHIFT. PT C/O NAUSEA BUT REFUSED ANTIN[place]SEA MEDICATION BUT THEN DID REQUEST TUMS X1 THIS SHIFT. SKIN CARE PROVIDED. PT REPOSITIONING SELF IN BED. BYRNE CATH PATENT AND DRAINING ORANGE URINE. PT AWAITING DISCHARGE HOME W/ NEW BARIATRIC BED TO BE DELIVERED TO HER. WILL CONTINUE TO MONITOR AND PROVIDE CARE UNTIL REPORT OFF TO DAY SHIFT RN.
--- NOTE | 2019-08-19 08:20 | NUR ---
Received call from Luana's mom, Ely, who states that the pt wishes to come home, with or without the hospital bed. States that the pt made this decision last night. Phone conversation deferred to Care Management RN, Jo Venegas.
[2019-08-19] MEDS ORDERED: DOCU100 PO (11:12)
[2019-08-19] MEDS ORDERED: LEVSOD75 PO (11:14)
[2019-08-19] MEDS ORDERED: Culturelle1 CAP PO (11:14)
[2019-08-19] MEDS ORDERED: METO25 PO (11:24)
[2019-08-19] MEDS ORDERED: Pedi-Dri 100,0060 GM TOP (11:25)
[2019-08-19] MEDS ORDERED: MIRALAX17 GM PO (11:26)
[2019-08-19] MEDS ORDERED: PANT20 PO (11:26)
[2019-08-19] MEDS ORDERED: SPIR50 PO (11:27)
[2019-08-19] MEDS ORDERED: SENN187 PO (11:27)
[2019-08-19] MEDS ORDERED: TRAM50 PO ×2 (11:33→11:34)
--- NOTE | 2019-08-19 18:20 | NUR ---
PT SUMMARY: AWAITING PT TO DISCHARGE, [facility] TO TRANSPORT PT. VITALS HAS BEEN STABLE FOR THE SHIFT. DENIES CP/PRESSURE. ON 2L OF O2 SATS ABOVE 94%, HOME O2 EVAL. PT HAS DISCHARGE ORDERS AGREED TO GO HOME EVEN HOSPITAL BED IS NOT DELIVERED YET TIL THURSDAY. PT OKAY TO USE REGULAR BED AT HOME. PT SIGNED DISCHARGE ORDERS, DISCLOSED DISCHARGE INSTRUCTIONS, VERBALIZED UNDERSTANDING. PT RECEIVED BED BATH THIS SHIFT. REFUSED AFTERNOON MEDS PT REQUESTED TO TAKE IT AT HOME AFTER DINNER. AWAITING FOR [facility] TO CHUCKING MACHINE OPERATOR PT. ALL BELONGINGS PACKED AND READY.
== END 2019-08-19 18:55 | disposition home or self-care (01) | DRG 205 ==
LOC: ER 13:34 → ICUW 16:49 → PCU 16:49 → ER 16:49 → EDBEDREQ 17:51 → ICUW 18:00 → MEDS 07-15 00:10 → ICUW 07-15 10:20 → PCU 08-01 17:02
PROVIDERS: Family Medicine; Hospitalist; Internal Medicine; Internal Medicine Critical Care Medicine; Physician Assistant; ADMIT Internal Medicine
PROC: 8E0ZXY6 Isolation (ICD-10-PCS; principal; 2019-07-08)
PROC: 5A09357 Assistance with Respiratory Ventilation, Less than 24 Consecutive Hours, Continuous Positive Airway Pressure (ICD-10-PCS; 2019-07-09)
DX: E66.2 Morbid (severe) obesity with alveolar hypoventilation (principal); J96.01 Acute respiratory failure with hypoxia; I50.31 Acute diastolic (congestive) heart failure; J96.02 Acute respiratory failure with hypercapnia; R65.10 Systemic inflammatory response syndrome (SIRS) of non-infectious origin without acute organ dysfunction; Z68.45 Body mass index [BMI] 70 or greater, adult; I11.0 Hypertensive heart disease with heart failure; Z79.84 Long term (current) use of oral hypoglycemic drugs; H40.9 Unspecified glaucoma; I89.0 Lymphedema, not elsewhere classified; B37.2 Candidiasis of skin and nail; E11.40 Type 2 diabetes mellitus with diabetic neuropathy, unspecified; R74.0 Nonspecific elevation of levels of transaminase and lactic acid dehydrogenase [LDH]; E87.5 Hyperkalemia; Z20.828 Contact with and (suspected) exposure to other viral communicable diseases; G89.29 Other chronic pain; M54.9 Dorsalgia, unspecified; L91.8 Other hypertrophic disorders of the skin; E65 Localized adiposity
CPT/HCPCS: 0099U; 36415; 36600; 51702; 51703; 71045; 73590; 80048; 80053; 80069; 80202; 81001; 82248; 82533; 82728; 82803; 82947; 83605; 83615; 83735; 83880; 84100; 84145; 84439; 84443; 84484; 85025; 85379; 86141; 87077; 87086; 87186; 93005; 93010; 93970; 94640; 94660; 94761; 94762; 96374-59; 97110; 97112; 97163; 97166; 97530; 97535; 99285-25; A9270; A9270-GY; C1751; C8929; C9113; J1650; J1940; J1956; J2405; J3010; J3370; J3475; J3480; J7030; J7050; Q9957; U0002

== ENCOUNTER → 2020-12-20 | Outpatient (CLI) | payer OTHER ==
[~2020-12-20] MED LIST changes: +ALBU2.5V5 INH; +ALBU90OI INH; +CBD GUMMIES; +Culturelle1 CAP PO; +DOCU100 PO; +Doxycycline Mo100 M1 PO; +ESOM20 PO; +FURO40 PO; +LEVSOD75 PO; +LOSARTAN POTASS25 M2 PO; +METO25 PO; +MIRALAX17 GM PO; +PANT20 PO; +Pedi-Dri 100,0060 GM TOP; +Provera10 MG PO; +SENN187 PO; +SPIR50 PO; +SULFAMETHOXAZOLE PO; +TRIMETHOPRIM PO
[2020-12-20 16:45] LABS: BASOPHILS ABSOLUTE AUTO 0.06 K/mm3 (0.00-0.23); BASOPHILS PERCENT AUTO 1 % (0-2); EOSINOPHILS ABSOLUTE AUTO 0.24 K/mm3 (0.00-0.68); EOSINOPHILS PERCENT AUTO 3 % (0-6); Hemoglobin 14.3 g/dL (11.5-16.0); IMMATURE GRAN ABSOLUTE AUTO 0.04 K/mm3 (0.00-0.10); IMMATURE GRAN PERCENT AUTO 1 % (0-1); LYMPHOCYTES ABSOLUTE AUTO 1.71 K/mm3 (0.84-5.20); LYMPHOCYTES PERCENT AUTO 23 % (21-46); MONOCYTES ABSOLUTE AUTO 0.33 K/mm3 (0.16-1.47); MONOCYTES PERCENT AUTO 5 % (4-13); Mean Corpuscular HGB 27.1 pg (26.0-34.0); Mean Corpuscular HGB Conc 32.5 g/dL (31.5-36.5); Mean Corpuscular Volume 84 fL (80-100); Mean Platelet Volume 12.8 fL (9.1-12.4); NEUTROPHILS ABSOLUTE AUTO 4.99 K/mm3 (1.96-9.15); NEUTROPHILS PERCENT AUTO 68 % (41-73); Platelet Count 194 K/mm3 (150-400); RDW Coefficient Variation 13.1 % (11.7-14.2); RDW Standard Deviation 39.6 fL (35.1-46.3); Red Blood Cell Count 5.27 M/mm3 (3.80-5.20); White Blood Cell Count 7.37 K/mm3 (4.00-11.30)
[2020-12-20 17:07] LABS: Alanine Aminotransfer (ALT/SGP 30 U/L (12-78); Albumin, Blood 3.2 g/dL (3.4-5.0); Albumin/Globulin Ratio 0.9 (0.8-1.8); Alk Phos 139 U/L (50-136); Anion Gap 6 mmol/L (6-16); Aspartate Aminotrans (AST/SGOT 18 U/L (12-37); Bilirubin, Total 0.5 mg/dL (0.1-1.0); Blood Urea Nitrogen 10 mg/dL (8-24); Bun/Creatinine Ratio 15.9 (12.0-20.0); CHOL/HDL RATIO 7.7; CO2, Blood 27 mmol/L (21-32); Calcium, Blood 9.4 mg/dL (8.5-10.1); Chloride, Blood 103 mmol/L (98-108); Cholesterol 199 mg/dL (50-200); Creatinine, Blood 0.63 mg/dL (0.40-1.00); Globulin, Blood 3.7 g/dL (2.2-4.0); Glomerular Filtration Rate >60 (60-); Glucose, Blood 344 mg/dL (70-99); HDL Cholesterol 26 mg/dL (>39); LDL/HDL RATIO 5.1; Low Density Lipoprotein Chol 133 mg/dL (0-110); Potassium, Blood 4.1 mmol/L (3.5-5.5); Sodium, Blood 136 mmol/L (136-145); Total Protein, Blood 6.9 g/dL (6.4-8.2); Triglycerides 201 mg/dL (30-160); Very Low Density Lipoprot Chol 40 mg/dL (6-32)
== END ==
LOC: LAB 13:00 → LAB SHORT 13:00
PROVIDERS: Nurse Practitioner Family
DX: Z13.220 Encounter for screening for lipoid disorders (principal); E03.9 Hypothyroidism, unspecified; E11.9 Type 2 diabetes mellitus without complications; I10 Essential (primary) hypertension
CPT/HCPCS: 80053; 80061; 83036; 84443; 85025

== ENCOUNTER → 2021-07-25 | Outpatient (CLI) | payer OTHER ==
[2021-07-25 12:21] LABS: BASOPHILS ABSOLUTE AUTO 0.06 K/mm3 (0.00-0.23); BASOPHILS PERCENT AUTO 1 % (0-2); EOSINOPHILS ABSOLUTE AUTO 0.26 K/mm3 (0.00-0.68); EOSINOPHILS PERCENT AUTO 3 % (0-6); Hematocrit 48.8 % (33.0-51.0); Hemoglobin 16.5 g/dL (11.5-16.0); IMMATURE GRAN ABSOLUTE AUTO 0.03 K/mm3 (0.00-0.10); IMMATURE GRAN PERCENT AUTO 0 % (0-1); LYMPHOCYTES ABSOLUTE AUTO 2.47 K/mm3 (0.84-5.20); LYMPHOCYTES PERCENT AUTO 27 % (21-46); MONOCYTES ABSOLUTE AUTO 0.43 K/mm3 (0.16-1.47); MONOCYTES PERCENT AUTO 5 % (4-13); Mean Corpuscular HGB 27.8 pg (26.0-34.0); Mean Corpuscular HGB Conc 33.8 g/dL (31.5-36.5); Mean Corpuscular Volume 82 fL (80-100); Mean Platelet Volume 12.8 fL (9.1-12.4); NEUTROPHILS ABSOLUTE AUTO 6.04 K/mm3 (1.96-9.15); NEUTROPHILS PERCENT AUTO 65 % (41-73); Platelet Count 248 K/mm3 (150-400); RDW Coefficient Variation 13.4 % (11.7-14.2); RDW Standard Deviation 39.9 fL (35.1-46.3); Red Blood Cell Count 5.93 M/mm3 (3.80-5.20); White Blood Cell Count 9.29 K/mm3 (4.00-11.30)
[2021-07-25 12:38] LABS: Alanine Aminotransfer (ALT/SGP 51 U/L (12-78); Albumin, Blood 3.9 g/dL (3.4-5.0); Alk Phos 152 U/L (50-136); Anion Gap 9 mmol/L (6-16); Aspartate Aminotrans (AST/SGOT 23 U/L (12-37); Bilirubin, Total 0.8 mg/dL (0.1-1.0); Blood Urea Nitrogen 13 mg/dL (8-24); CO2, Blood 24 mmol/L (21-32); Calcium, Blood 9.7 mg/dL (8.5-10.1); Chloride, Blood 101 mmol/L (98-108); Cholesterol 203 mg/dL (50-200); Creatinine, Blood 0.57 mg/dL (0.40-1.00); Globulin, Blood 4.1 g/dL (2.2-4.0); Glomerular Filtration Rate >60 (60-); Glucose, Blood 339 mg/dL (70-99); HDL Cholesterol 29 mg/dL (>39); LDL/HDL RATIO 3.8; Low Density Lipoprotein Chol 110 mg/dL (0-110); Potassium, Blood 3.8 mmol/L (3.5-5.5); Sodium, Blood 134 mmol/L (136-145); Triglycerides 319 mg/dL (30-160); Very Low Density Lipoprot Chol 63 mg/dL (6-32)
== END | disposition home or self-care (01) ==
LOC: LAB 11:09 → LAB SHORT 11:09
PROVIDERS: Nurse Practitioner Family
DX: E03.9 Hypothyroidism, unspecified (principal); E11.9 Type 2 diabetes mellitus without complications; I10 Essential (primary) hypertension
CPT/HCPCS: 80053; 80061; 83036; 84439; 84443; 85025

== ENCOUNTER → 2022-08-29 | Outpatient (CLI) | payer OTHER ==
[2022-08-29 17:59] LABS: BASOPHILS ABSOLUTE AUTO 0.06 K/mm3 (0.00-0.23); BASOPHILS PERCENT AUTO 1 % (0-2); EOSINOPHILS ABSOLUTE AUTO 0.16 K/mm3 (0.00-0.68); EOSINOPHILS PERCENT AUTO 2 % (0-6); Hematocrit 47.6 % (33.0-51.0); Hemoglobin 15.8 g/dL (11.5-16.0); IMMATURE GRAN ABSOLUTE AUTO 0.02 K/mm3 (0.00-0.10); IMMATURE GRAN PERCENT AUTO 0 % (0-1); LYMPHOCYTES ABSOLUTE AUTO 1.84 K/mm3 (0.84-5.20); LYMPHOCYTES PERCENT AUTO 28 % (21-46); MONOCYTES ABSOLUTE AUTO 0.31 K/mm3 (0.16-1.47); MONOCYTES PERCENT AUTO 5 % (4-13); Mean Corpuscular HGB 27.7 pg (26.0-34.0); Mean Corpuscular HGB Conc 33.2 g/dL (31.5-36.5); Mean Corpuscular Volume 83 fL (80-100); NEUTROPHILS ABSOLUTE AUTO 4.26 K/mm3 (1.96-9.15); NEUTROPHILS PERCENT AUTO 64 % (41-73); Platelet Count 177 K/mm3 (150-400); RDW Coefficient Variation 13.2 % (11.7-14.2); RDW Standard Deviation 39.8 fL (35.1-46.3); Red Blood Cell Count 5.71 M/mm3 (3.80-5.20); White Blood Cell Count 6.65 K/mm3 (4.00-11.30)
[2022-08-29 18:08] LABS: Mean Platelet Volume 13.4 fL (9.1-12.4)
[2022-08-29 18:22] LABS: Alanine Aminotransfer (ALT/SGP 30 U/L (12-78); Albumin, Blood 3.5 g/dL (3.4-5.0); Alk Phos 108 U/L (50-136); Anion Gap 4 mmol/L (6-16); Aspartate Aminotrans (AST/SGOT 15 U/L (12-37); Bilirubin, Total 0.9 mg/dL (0.1-1.0); Blood Urea Nitrogen 10 mg/dL (8-24); Bun/Creatinine Ratio 15.2 (12.0-20.0); CHOL/HDL RATIO 6.6; CO2, Blood 27 mmol/L (21-32); Calcium, Blood 9.4 mg/dL (8.5-10.1); Chloride, Blood 102 mmol/L (98-108); Cholesterol 206 mg/dL (50-200); Creatinine, Blood 0.66 mg/dL (0.40-1.00); Globulin, Blood 3.4 g/dL (2.2-4.0); Glomerular Filtration Rate 112 (60-); Glucose, Blood 420 mg/dL (70-99); HDL Cholesterol 31 mg/dL (>39); LDL/HDL RATIO 4.1; Low Density Lipoprotein Chol 128 mg/dL (0-110); Potassium, Blood 4.6 mmol/L (3.5-5.5); Sodium, Blood 133 mmol/L (136-145); Total Protein, Blood 6.9 g/dL (6.4-8.2); Triglycerides 234 mg/dL (30-160); Very Low Density Lipoprot Chol 46 mg/dL (6-32)
== END | disposition home or self-care (01) ==
LOC: LAB 14:55 → LAB SHORT 14:55
PROVIDERS: Nurse Practitioner Family
DX: I10 Essential (primary) hypertension (principal); E11.9 Type 2 diabetes mellitus without complications; E78.5 Hyperlipidemia, unspecified
CPT/HCPCS: 80053; 80061; 83036; 85025

== ENCOUNTER → 2023-12-28 | Outpatient (CLI) | payer OTHER ==
[2023-12-28 14:36] LABS: BASOPHILS ABSOLUTE AUTO 0.04 K/mm3 (0.00-0.23); BASOPHILS PERCENT AUTO 1 % (0-2); EOSINOPHILS ABSOLUTE AUTO 0.16 K/mm3 (0.00-0.68); EOSINOPHILS PERCENT AUTO 2 % (0-6); Hemoglobin 16.1 g/dL (11.5-16.0); IMMATURE GRAN ABSOLUTE AUTO 0.04 K/mm3 (0.00-0.10); IMMATURE GRAN PERCENT AUTO 1 % (0-1); LYMPHOCYTES ABSOLUTE AUTO 1.89 K/mm3 (0.84-5.20); LYMPHOCYTES PERCENT AUTO 26 % (21-46); MONOCYTES ABSOLUTE AUTO 0.32 K/mm3 (0.16-1.47); MONOCYTES PERCENT AUTO 5 % (4-13); Mean Corpuscular HGB 28.3 pg (26.0-34.0); Mean Corpuscular HGB Conc 33.5 g/dL (31.5-36.5); Mean Corpuscular Volume 84 fL (80-100); Mean Platelet Volume 12.7 fL (9.1-12.4); NEUTROPHILS ABSOLUTE AUTO 4.74 K/mm3 (1.96-9.15); NEUTROPHILS PERCENT AUTO 66 % (41-73); Platelet Count 178 K/mm3 (150-400); RDW Coefficient Variation 13.1 % (11.7-14.2); RDW Standard Deviation 39.9 fL (35.1-46.3); Red Blood Cell Count 5.69 M/mm3 (3.80-5.20); White Blood Cell Count 7.19 K/mm3 (4.00-11.30)
[2023-12-28 19:17] LABS: Alanine Aminotransfer (ALT/SGP 33 U/L (12-78); Albumin, Blood 3.6 g/dL (3.4-5.0); Alk Phos 130 U/L (50-136); Anion Gap 13 mmol/L (3-11); Aspartate Aminotrans (AST/SGOT 17 U/L (12-37); Bilirubin, Total 0.6 mg/dL (0.1-1.0); Blood Urea Nitrogen 9 mg/dL (8-24); Bun/Creatinine Ratio 12.5 (12.0-20.0); CHOL/HDL RATIO 7.3; CO2, Blood 24 mmol/L (21-32); Calcium, Blood 9.1 mg/dL (8.5-10.1); Chloride, Blood 102 mmol/L (98-108); Cholesterol 183 mg/dL (50-200); Creatinine, Blood 0.72 mg/dL (0.40-1.00); Ferritin, Serum 345 ng/mL (8-252); Free Thyroxine 1.04 ng/dL (0.70-1.60); Globulin, Blood 3.5 g/dL (2.2-4.0); Glomerular Filtration Rate 106 (60-); Glucose, Blood 467 mg/dL (70-99); HDL Cholesterol 25 mg/dL (>39); Iron Serum 61 ug/dL (50-170); LDL/HDL RATIO 3.6; Low Density Lipoprotein Chol 90 mg/dL (0-110); Percent Saturation 17.3 % (15.0-50.0); Potassium, Blood 4.7 mmol/L (3.5-5.5); Sodium, Blood 134 mmol/L (136-145); Total Iron Binding Capacity 353 ug/dL (250-450); Total Protein, Blood 7.1 g/dL (6.4-8.2); Triglycerides 340 mg/dL (30-160); Very Low Density Lipoprot Chol 68 mg/dL (6-32)
== END | disposition home or self-care (01) ==
LOC: LAB SHORT 12:57 → LAB 12:57
PROVIDERS: Nurse Practitioner Family
DX: E11.36 Type 2 diabetes mellitus with diabetic cataract (principal); E03.9 Hypothyroidism, unspecified; G25.81 Restless legs syndrome
CPT/HCPCS: 80053; 80061; 82728; 83036; 83540; 83550; 84439; 84443; 85025

== ENCOUNTER 2024-01-29 22:36 | Emergency (ER) | payer OTHER ==
[~2024-01-29] VITALS: Ht 170.2 cm; Wt 161.5 kg
[2024-01-29 22:43] VITALS: BP 186/121
[2024-01-29] MEDS ORDERED: Trimethoprim/Sulfamethoxazole DS Tab PO ONE (23:00)
[2024-01-29] MEDS ORDERED: Bactrim Ds Tab1 EACH PO (23:00)
[2024-02-01] MEDS ORDERED: ONDA4ODT MM (17:52)
== END 2024-01-29 23:03 | disposition home or self-care (01) ==
LOC: ER 22:36
DX: L02.31 Cutaneous abscess of buttock (principal); Z88.5 Allergy status to narcotic agent; Z88.1 Allergy status to other antibiotic agents; Z88.0 Allergy status to penicillin; Z91.048 Other nonmedicinal substance allergy status; Z88.8 Allergy status to other drugs, medicaments and biological substances; Z79.899 Other long term (current) drug therapy; Z79.84 Long term (current) use of oral hypoglycemic drugs; E11.9 Type 2 diabetes mellitus without complications
CPT/HCPCS: 99283; A9270

== ENCOUNTER 2024-12-12 12:32 | Emergency (ER) | payer OTHER ==
[~2024-12-12] VITALS: Ht 170.2 cm; Wt 146.5 kg
[~2024-12-12 12:32] MED LIST changes: +ATORVASTATIN CA20 MG PO; +BISA10S PR; +GLUCOPHAGE1000 M1 PO; +Glucotrol Xl10 MG PO; +IBU800 M1 PO; +IPRAT-ALBUT 0.5-3 ML NEB; -METO25 PO; +METO25ER PO; +ONDA4ODT MM; +SULFAMETHOXAZO1 EAC1 PO; +VISBIOME 112.51 EACH PO
[2024-12-12 14:57] VITALS: BP 156/98
[2024-12-12] MEDS ORDERED: Prednisone20 MG PO (15:13)
== END 2024-12-12 15:26 | disposition home or self-care (01) ==
LOC: ER 12:32
DX: H57.12 Ocular pain, left eye (principal); E11.9 Type 2 diabetes mellitus without complications; I50.30 Unspecified diastolic (congestive) heart failure; E03.9 Hypothyroidism, unspecified; E66.01 Morbid (severe) obesity due to excess calories; Z68.43 Body mass index [BMI] 50.0-59.9, adult; Z98.42 Cataract extraction status, left eye; Z88.5 Allergy status to narcotic agent; Z88.1 Allergy status to other antibiotic agents; Z88.0 Allergy status to penicillin; Z91.048 Other nonmedicinal substance allergy status; Z88.4 Allergy status to anesthetic agent; Z91.041 Radiographic dye allergy status; Z88.8 Allergy status to other drugs, medicaments and biological substances; Z79.84 Long term (current) use of oral hypoglycemic drugs; Z79.899 Other long term (current) drug therapy
CPT/HCPCS: 70450; 99283-25; J7512